=== PATIENT | female | born 1985 | race Caucasian/White ===

== ENCOUNTER 2022-12-26 09:29 | Outpatient (OUT) | payer OTHER, SELFPAY ==
[2022-12-26 09:42] LABS: Basophils Absolute Auto 0.1 10^3/uL (0.0-0.1); Basophils Percent Auto 0.8 % (0.2-2.0); Eosinophils Absolute Auto 0.3 10^3/uL (0.0-0.7); Eosinophils Percent Auto 3.1 % (0.9-7.0); Hematocrit 44.1 % (36.0-48.0); Hemoglobin 14.6 g/dL (12.0-16.0); Immature Granulocytes Abs Auto 0.05 10^3/uL (0.00-0.03); Immature Granulocytes Pct Auto 0.5 % (0.0-0.5); Lymphocytes Absolute Auto 1.8 10^3/uL (1.2-3.8); Lymphocytes Percent Auto 18.3 % (20.5-60.0); Mean Corpuscular HGB Conc 33.1 g/dL (29.9-35.2); Mean Corpuscular Volume 90.7 fL (81.0-99.0); Mean Platelet Volume 8.8 fL (9.5-13.5); Monocytes Absolute Auto 0.5 10^3/uL (0.3-0.8); Monocytes Percent Auto 4.9 % (1.7-12.0); Neutrophils Absolute Auto 7.3 10^3/uL (1.4-6.5); Neutrophils Percent Auto 72.4 % (43.0-75.0); Platelet Count 283 10^3/uL (150-450); Red Blood Count 4.86 10^6/uL (4.20-5.40); Red Cell Distribution Width 12.7 % (11.0-15.0); White Blood Count 10.1 10^3/uL (4.0-11.0)
[2022-12-26 09:45] LABS: HCG Qualitative Urine* NEGATIVE (NEGATIVE)
[2022-12-26 10:33] LABS: BUN Creatinine Ratio 6.5; Calcium 8.7 mg/dL (8.5-10.1); Carbon Dioxide 24.2 mmol/L (21.0-32.0); Chloride 108 mmol/L (98-107); Estimated GFR (African America >60 (>=60); Estimated GFR (Non-African Ame >60 (>=60); Glucose 120 mg/dL (74-106); Potassium 3.2 mmol/L (3.5-5.1); Sodium 142 mmol/L (136-145)
== END 2022-12-26 09:30 | disposition home or self-care (01) ==
LOC: LAB 09:29
PROVIDERS: Visit Provider Nurse Practitioner
DX: Z01.812 Encounter for preprocedural laboratory examination (principal); I47.1 Supraventricular tachycardia
CPT/HCPCS: 36415; 80048; 84703; 85025

== ENCOUNTER 2023-04-18 19:07 | Outpatient (REF) | payer OTHER, SELFPAY ==
[2023-04-24 09:12] LABS: Age Gdln ACOG Testing Note (.); HPV Aptima Negative (Negative); IGP, Aptima HPV, rfx 16/18,45 Note (.)
== END 2023-04-18 19:08 | disposition home or self-care (01) ==
LOC: LAB 19:07
PROVIDERS: Visit Provider Obstetrics & Gynecology
DX: Z01.419 Encounter for gynecological examination (general) (routine) without abnormal findings (principal)
CPT/HCPCS: 87624; G0145

== ENCOUNTER 2023-05-02 10:48 | Outpatient (OUT) | payer OTHER, SELFPAY ==
--- NOTE | 2023-05-02 10:52 | US_ITS ---
Patient Name: CONG CASTELLANO MR#: [id number] : 1985 Exam Date: 05/02/2023 Ordering Doctor: DR Tayo Cota . RADIOLOGY REPORT PROCEDURE: MM TOMOSYNTHESIS DIAGNOSTIC BI, 05/02/2023, 10:59 US BREAST RT LIMITED, 05/02/2023, 11:06 COMPARISON: MG MAMM SCREEN SHANTI W CAD, 08/21/2019. INDICATIONS: Right Breast Lump N63.14 Calculator Name NCI Breast Cancer Risk Assessment Tool 5 Year Breast Cancer Risk 1.10% Lifetime Breast Cancer Risk 11.80% Personal Breast Cancer No Personal Ovarian Cancer No Treatments None Family Cancers Grandmother-paternal with breast cancer at age 42; Mother with ovarian cancer at age ~38. LOCATION: [facility] BREAST COMPOSITION: Scattered areas fibroglandular density. FINDINGS: DIAGNOSTIC CATEGORY 4--SUSPICIOUS FOR MALIGNANCY. FINDING DOES NOT EXHIBIT CLASSIC FINDINGS OF BREAST CANCER: The breasts are stable in size and overall fibroglandular configuration.Scattered benign-appearing calcifications are present. RIGHT BREAST: Burton marker lower inner right mid breast indicates a palpable mass period no mammographic abnormality. Ultrasound demonstrates at the 4 o'clock position a 1.5 x 0.8 x 1.0 cm well-circumscribed oval heterogeneous hypoechogenic mass. This mass is indeterminate. LEFT BREAST: No significant suspicious finding. RECOMMENDATIONS: ULTRASOUND-GUIDED CORE BIOPSY: RIGHT BREAST 1.5 cm mass PLEASE NOTE: A NORMAL MAMMOGRAM DOES NOT EXCLUDE THE POSSIBILITY OF BREAST CANCER. A CLINICALLY SUSPICIOUS PALPABLE LUMP SHOULD BE BIOPSIED. Dictated by: Mauro Lund MD on 05/02/2023 at 11:43 Approved by: Mauro Lund MD on 05/02/2023 at 11:47
== END 2023-05-02 10:49 | disposition home or self-care (01) ==
LOC: MAMMO 10:48
PROVIDERS: Visit Provider Obstetrics & Gynecology
DX: N63.14 Unspecified lump in the right breast, lower inner quadrant (principal); Z80.3 Family history of malignant neoplasm of breast; Z80.41 Family history of malignant neoplasm of ovary
CPT/HCPCS: 76642; 77066; G0279

== ENCOUNTER 2023-05-17 12:20 | Day surgery (SDC) | payer OTHER, SELFPAY ==
--- NOTE | 2023-05-17 | MM_ITS ---
Patient Name: CONG CASTELLANO MR#: [id number] : 1985 Exam Date: 05/17/2023 Ordering Doctor: DR Tayo Cota . This report includes an Addendum and supersedes previous reports for this exam. RADIOLOGY REPORT PROCEDURE: MM POST BIOPSY RT COMPARISON: MM TOMOSYNTHESIS DIAGNOSTIC BI, 05/02/2023. MG MAMM SCREEN SHANTI W CAD, 08/21/2019. MG MAMM RT DIAG W CAD, 06/08/2017. MG MAMM RT DIAG W CAD, 12/07/2016. INDICATIONS: Abnormal ultrasound, post biopsy BREAST COMPOSITION: Scattered areas fibroglandular density. FINDINGS: BIOPSY MARKER: A metallic marker has been placed in the targeted location within the posterior lower inner quadrant of the right breast. BREAST FINDINGS: Expected post biopsy findings. RECOMMENDATIONS: Dictated by: Manuel Carpenter M.D. on 05/18/2023 at 13:40 Approved by: Manuel Carpenter M.D. on 05/18/2023 at 13:49 ADDENDUM: Final pathologic diagnosis: Mature adipose tissue. FINDINGS: DIAGNOSTIC CATEGORY 3--PROBABLY BENIGN FINDING. THE FOLLOWING FINDING(S) HAS A HIGH PROBABILITY OF A BENIGN ETIOLOGY: RECOMMENDATIONS: SHORT TERM FOLLOW-UP DIAGNOSTIC MAMMOGRAM RIGHT BREAST IN 6 MONTHS. Dictated by: Manuel Carpenter M.D. on 05/30/2023 at 15:51 Approved by: Manuel Carpenter M.D. on 05/30/2023 at 15:54
--- NOTE | 2023-05-17 12:24 | US_ITS ---
[address] [address] Patient Name: CONG CASTELLANO MRN: [id number] date: 1985 Sex: F Assigned Patient Location: US Current Patient Location: US Accession/Order Number: [id number] Exam Date: 05/17/2023 12:35 Report Date: 05/17/2023 13:59 At the request of: REID WATERMAN Procedure: US breast vac bx w/ clip RT EXAM: US breast vac bx w/ clip RT HISTORY: right breast mass COMPARISON: Ultrasound breast right 05/02/2023 TECHNIQUE: After obtaining informed consent, ultrasound-guided biopsy was performed in the usual sterile manner. The location of the biopsy was then marked as indicated below. FINDINGS: Specimen #, Location: 4 core samples; isoechoic right breast mass for clock position 1.4 x 0.9 x 1.0 cm in size. Biopsy Needle: 13 gauge vacuum core biopsy needle. Marker(s): A single metallic marker was placed in the appropriate targeted location. Medication: Buffered 1% Lidocaine with epinephrine administered locally. Complications: None. Pathology: Pending. US/US breast vac bx w/ clip RT IMPRESSION: 1. Uneventful ultrasound-guided breast biopsy. 2. Pathology results are pending. An addendum to this report will be provided after pathology results are available. Electronically authenticated by: LIZET HAYNES Date: 05/17/2023 13:59
[2023-05-17 12:35] VITALS: BP 135/84; PULSE 93; O2SAT 98
[2023-05-17] MEDS: LIDOCAINE HCL/EPINEPHRINE 10 ML, SODIUM BICARBONATE 1 MEQ INJ (13:25)
[2023-05-17] MEDS: LIDOCAINE HCL 10 ML, SODIUM BICARBONATE 1 MEQ INJ (13:25)
--- NOTE | 2023-05-17 15:11 | SUR.PREOP ---
05/04/23 Pt instructed on procedure ,date, and time. Pt made aware to hold ASA x 5 days prior to biopsy.
== END 2023-05-17 13:55 | disposition home or self-care (01) ==
LOC: US 12:20
PROVIDERS: Radiology Diagnostic Radiology; Visit Provider Obstetrics & Gynecology
DX: N63.14 Unspecified lump in the right breast, lower inner quadrant (principal)
CPT/HCPCS: 19083; 77065; 88305

== ENCOUNTER 2023-11-07 09:28 | Outpatient (OUT) | payer OTHER, SELFPAY ==
--- NOTE | 2023-11-07 09:39 | US_ITS ---
Patient Name: CONG CASTELLANO MR#: [id number] : 1985 Exam Date: 11/07/2023 Ordering Doctor: Akshat Ritchie RADIOLOGY REPORT PROCEDURE: MM TOMOSYNTHESIS DIAGNOSTIC RT, 11/07/2023, 09:39 US BREAST RT LIMITED, 11/07/2023, 10:04 COMPARISON: US BREAST RT LIMITED, 11/07/2023. US BREAST RT LIMITED, 05/02/2023. MM POST BIOPSY RT, 05/17/2023. INDICATIONS: History Of Breast Biopsy Z98.890, History Of Breast Mass Calculator Name NCI Breast Cancer Risk Assessment Tool 5 Year Breast Cancer Risk 1.10% Lifetime Breast Cancer Risk 11.80% Personal Breast Cancer No Personal Ovarian Cancer No Treatments None Family Cancers Grandmother-paternal with breast cancer at age 42; Mother with ovarian cancer at age ~38. LOCATION: [facility] BREAST COMPOSITION: There are scattered areas of fibroglandular density. FINDINGS: DIAGNOSTIC CATEGORY 2--BENIGN FINDING: Two triangle markers in the right breast indicate palpable abnormalities. No mammographic abnormality is observed. Ultrasound demonstrates at 4 o'clock position decrease in size the previously biopsied lesion now measuring 8.5 x 6.4 x 6.1 mm. Additionally identified at the 4 o'clock position is a micro clip marker with collagen plug. No linear abnormality to correspond to the patient's palpable abnormality observed by ultrasound. Further evaluation should be based on clinical exam. RECOMMENDATIONS: ROUTINE MAMMOGRAM AND CLINICAL EVALUATION IN 12 MONTHS. PLEASE NOTE: A NORMAL MAMMOGRAM DOES NOT EXCLUDE THE POSSIBILITY OF BREAST CANCER. A CLINICALLY SUSPICIOUS PALPABLE LUMP SHOULD BE BIOPSIED. Dictated by: Mauro Lund MD on 11/07/2023 at 10:23 Approved by: Mauro Lund MD on 11/07/2023 at 10:27
== END 2023-11-07 09:29 | disposition home or self-care (01) ==
LOC: MAMMO 09:31
PROVIDERS: Visit Provider Surgery
DX: R92.8 Other abnormal and inconclusive findings on diagnostic imaging of breast (principal); Z98.890 Other specified postprocedural states; Z80.3 Family history of malignant neoplasm of breast; Z80.41 Family history of malignant neoplasm of ovary
CPT/HCPCS: 76642; 77065; G0279

== ENCOUNTER 2024-08-19 15:45 | Outpatient (OUT) | payer OTHER, SELFPAY ==
[2024-08-22 15:09] LABS: Age Gdln ACOG Testing Note (.); HPV Aptima Negative (Negative); IGP, Aptima HPV, rfx 16/18,45 Note (.)
== END 2024-08-19 15:46 | disposition home or self-care (01) ==
LOC: LAB 15:48
PROVIDERS: Visit Provider Physician Assistant
DX: Z01.419 Encounter for gynecological examination (general) (routine) without abnormal findings (principal)
CPT/HCPCS: 87624; 88175

== ENCOUNTER 2024-12-17 18:15 | Outpatient (OUT) | payer OTHER, SELFPAY ==
--- OUTSIDE RECORDS SUMMARY | 2024-12-16 09:40 | XMS_ITS | Encounter Summary ---
Author Organization [facility] Address [address] [place] [address] Care Team Providers Care Email Designer Name Role Phone Gil Ragsdale MD Primary Care Provider [phone] Reason for Referral * Imaging (Routine) - Pending Review Specialty Diagnoses / Procedures Referred By Ross t Referred To Contact Cardiology Diagnoses Leg swelling Pain in both lower extremities Procedures Vascular US lower extremity venous insufficiency bilateral Faye Boland CNP [address] [place] [address] Phone: tel: fax: Referral ID Status Reason Start Date Expiration Date Visits Requested Visits Authorized [id number] Pending Review Perform Procedure 12/16/2024 12/16/2025 1 1 Reason for Visit * Reason Comments Atrial Flutter Edema Encounter Details Date Type Department Care Team (Late st Contact Info) Description 12/16/2024 9:40 AM EDT Office Visit [facility] [address] [place] [address] Faye Boland CNP [address] [place] [address] Leg swelling (Primary Dx); Pain in both lower extremities; Typical atrial flutter (CMS/HCC); S/P ablation of atrial flutter; SVT (supraventricular tachycardia) Social History Tobacco Use Types Packs/Day Years Used Date Smoking Tobacco: Every Day Cigarettes Smokeless Tobacco: Never Tobacco Cessation:Ready to Q uit: Not Asked; Counseling Given: Not Answered Comments:Vape 5 times per day Alcohol Use Standard Drinks/Week Comments Not Currently 0 (1 standard drink = 0.6 oz pur e alcohol) [place] Safety & Environment Answer Date Rec orded Fear of Current or Ex-Partner Not on file Emotionally Abused Not on file 08/09/2023 Physically Abused Not on file 08/09/2023 Sexually Abused Not on file 08/09/2023 Physically or Sexually Abused Not on file Comments No Sex and Gender Information Value Date Recorded Sex Assigned at Not on file Legal Sex Female 10:14 PM EDT Gender Identity Not on file Sexual Orientation Not on file documented as of this encounter Last Filed Vital Signs Vital Sign Reading Time Taken Comments Blood Pressure 126/84 12/16/2024 9:46 AM EDT Pulse 95 12/16/2024 9:46 AM EDT Temperature - - Respiratory Rate - - Oxygen Saturation 97% 12/16/2024 9:46 AM EDT Inhaled Oxygen Concentration - - Weight 93.4 kg (206 lb) 12/16/2024 9:46 AM EDT Height 157.5 cm (5' 2 ) 12/16/2024 9:46 AM EDT Body Mass Index 37.68 12/16/2024 9:46 AM EDT documented in this encounter Progress Notes * Faye Boland, URBANO - 12/16/2024 9:40 AM EDT Images from the original note were not included. Cardiovascular Medicine [facility] SUBJECTIVE Chief Complaint Patient presents with Atrial Flutter Edema Brianna Smas is a 39 y.o. female here for follow-up. PMHx: SVT, a.flutter s/p ablation, LOOP recorder that has reached EOL, HTN HPI 12/16/2024 Patient is here today for a 6 month follow up. Patient states she has been having a lot of swelling in her legs over the last 5 to 6 days. Patient states she is 5 pounds heavier then when she was ather PCP 2 weeks ago. Patient states she has some MAST. Patient denies SOB, palpitations. Patient would like to discuss if she needs a new loop or if it should be removed. Her leg swelling has been worse in her left leg than right. She noticed some discomfort behind her left calf. She notes her mother has hx of Factor V - she has half of the factor V gene. Denies c/o CP, dyspnea, orthopnea, PND, dizziness/LH, palpitations, syncope. Last HPI per Dr. Osuna: 05/27/24 FATHER recently , she was having high bp and palpitions through that. No dizziness, velma swellingg Used pocket pill a couple. LOOP is now non functional. No tachy noted. 04/20/23: She is here for follow up she has been feeling well with no complaints of chest pain, shortness breath, MAST, palpitations loop data review shows she has had 1 episode of svt 04/16/2023 for about 19 seconds likely atrial tachycardia versus AVNRT, although she has not been noted to have any retrograde accessory conduction on EP study so likely atrial tachycardia discussed with patient for now which continue to monitor 10/2022 HPI: she is here for follow-up for loop data review and for palpitations reviewing her loop she does have some episodes of what look like atrial flutter despite having pastatrial flutter ablation. In the past her atrial flutter ablation CTI block was not able to be confirmed. 08/2022 per spana higgins HPI: Brianna Sams is a 39 y.o. year old with past medical history of palpitations, SVT s/p loop implant 12/[address] Osuna. She is here for follow-up regarding right event alert below from 07/09/22. she states she has not had any increase in symptoms but occasionally has palpitations which she hasbeen tolerating. she does not recall anything from that day but event calls for VT but after further review of strips it is difficult to delineate whether this was a ventricular rhythm normal. Event strip Appears to have a lot of artifact/noise and what may look like VT I do not believe his VT. The rhythm is a narrow complex which means more likely an SVT vs noise. recently admitted She states she has been feeling well and I offered her potential EP study after reviewing past events. She has had several appropriate atrial tachycardia events which she states is controlled with her medication. She has occasional palpitations but no other associated symptoms. She does not want topursue any intervention at this time. She denies chest pain, syncope, lightheadedness, dizziness, MAST Red event alert 07/09/2211/[address] Osuna: Ms Sams is a 35yr old lady with prior ablation by Dr. Fink in 2009 after failing medications for palpitations. She was brought to the EP lab and on Isuprel atrial flutter with 200ms CL was induced that self terminated. No other tachy was induced and this was emirically ablated. Since then pt states she has not experienced any syncope but still had palpitations. She had a loop implanted and due to frequent infectionw as taken out by Dr peña at [place]. Previously, -Episode of chest pain about 2 months ago while at work, lasted 30 seconds, has trouble describing pain but almost like an intense ache/throbbing/sharp pain, took her breath away, left sided, no episodes since then - wasn't sure what her BP or HR were at that time as she was at work on the [employer] (works at [employer]) -Feels flutters here and there - notices them more when she is sitting still or resting - not bothersome, not limiting - no accompanied sx's - lasts seconds -Has LE edema that is an ongoing issue -Denies any current CP, dyspnea, MAST, orthopnea, PND, dizziness/LH, syncope. Event monitor Jun 2020: reveals episode of long RP trachycardia ta 3 am. She wakes up at 4am and solong RP at 4; 30am is likely sinus tachycardia. Patient Active Problem List Diagnosis Intermittent palpitations SVT (supraventricular tachycardia) Migraine without aura and without status migrainosus, not intractable Hypertension Anemia Elevated blood-pressure reading without diagnosis of hypertension Gastroesophageal reflux disease Migraine Mood swings Syncope and collapse Atrial flutter (CMS/HCC) Anxiety Cigarette nicotine dependence without complication Current moderate episode of major depressive disorder without prior episode (CMS/HCC) Neck muscle strain Past Medical History: Diagnosis Date Arrhythmia Atrial fibrillation (CMS/HCC) Hypertension SVT (supraventricular tachycardia) Family History Problem Relation Name Age of Onset COPD Father Social History Tobacco Use Smoking status: Every Day Types: Cigarettes Smokeless tobacco: Never Tobacco comments: Vape 5 times per day Substance Use Topics Alcohol use: Not Currently Drug use: Yes Types: Marijuana Comment: topical smokes occasional joint Allergies Allergen Reactions Diltiazem Hives Diltiazem Hcl Hives OBJECTIVE Visit Vitals BP 126/84 (BP Location: Right arm, Patient Position: Sitting) Pulse 95 Ht 1.575 m (5' 2 ) Wt 93.4 kg (206 lb) SpO2 97% BMI 37.68 kg/m² OB Status Hysterectomy Smoking Status Every Day BSA 2.02 m² Medications: Current Outpatient Medications: aspirin 81 mg EC tablet, Take 81 mg by mouth in the morning., Disp: , Rfl: DULoxetine (Cymbalta) [address] capsule, duloxetine 20 mg capsule,delayed release, Disp: , Rfl: metoprolol tartrate (Lopressor) 25 mg tablet, TAKE 1 TABLET BY MOUTH IF NEEDED FOR HEART RATE GREATER THAN 100 BPM, Disp: 90 tablet, Rfl: 0 omeprazole (PriLOSEC) [address] capsule, Take 40 mg by mouth before breakfast. Do not crush or chew., Disp: , Rfl: tiZANidine (Zanaflex) 4 mg tablet, tizanidine 4 mg tablet, Disp: , Rfl: topiramate (Topamax) 100 mg tablet, topiramate 100 mg tablet TAKE 1 AND 1/2 TABLETS BY MOUTH TWICE DAILY, Disp: , Rfl: furosemide (Lasix) 20 mg tablet, Take 1 tablet (20 mg) by mouth if needed (take 1 tablet daily if needed for leg swelling)., Disp: 30 tablet, Rfl: 11 Physical Exam Vitals reviewed. Constitutional: Appearance: Normal appearance. She is normal weight. HENT: Head: Normocephalic and atraumatic. Right Ear: External ear normal. Left Ear: External ear normal. Eyes: Extraocular Movements: Extraocular movements intact. Conjunctiva/sclera: Conjunctivae normal. Pupils: Pupils are equal, round, and reactive to light. Neck: Vascular: No carotid bruit. Cardiovascular: Rate and Rhythm: Normal rate and regular rhythm. Pulses: Normal pulses. Heart sounds: Normal heart sounds. Pulmonary: Effort: Pulmonary effort is normal. Breath sounds: Normal breath sounds. Abdominal: General: Bowel sounds are normal. Palpations: Abdomen is soft. Musculoskeletal: Cervical back: Neck supple. Right lower leg: No edema. Left lower leg: Edema (trace, nonpitting) present. Skin: General: Skin is warm and dry. Neurological: General: No focal deficit present. Mental Status: She is alert and oriented to person, place, and time. Psychiatric: Mood and Affect: Mood normal. Behavior: Behavior normal. Thought Content: Thought content normal. Judgment: Judgment normal. Labs: No results found for: EXTCMP , BMPR1A , CBCDIF , BNP , LASAP , RED No visits with results within 6 Month(s) from this visit. Latest known visit with results is: Ancillary Procedure on 11/05/2023 Component Date Value BSA 12/05/2023 1.95 No results found for: CHOL , TRIG , HDL , LDLDIRECT Testing/Procedures: ECHO 05/2021 Stress test: 05/2021 Electrophysiology: 01/01/23 EP study AHms 66 HVms 65 VERPms 600/250, VA conduction - @600ms, + @800ms AV Wenkebach ms 350 AH jump ms NA AVNERP ms 600/270 AERP ms 600/260 SPECIMEN REMOVED: None IMPRESSION: 1. EP study with and no inducible VT 2. No inducible tachycardia 3. Reablation of CTI to establish bidirectional block. 02/2010 flutter ablation ASSESSMENT/PLAN: Diagnoses and all orders for this visit: Leg swelling - furosemide (Lasix) 20 mg tablet; Take 1 tablet (20 mg) by mouth if needed (take 1 tablet daily ifneeded for leg swelling). - Vascular US lower extremity venous insufficiency bilateral; Future Pain in both lower extremities - Vascular US lower extremity venous insufficiency bilateral; Future Typical atrial flutter (CMS/HCC) S/P ablation of atrial flutter SVT (supraventricular tachycardia) SVT Atrial flutter s/p ablation LOOP monitor -s/p confrimed flutter ablation 01/01/23 / EP study with no inducible tachycardia -loop shows 1 short episodes of tachycardia 04/16/23 - likely atrial tachycardia No further tachycardia on LOOP. No data now since it is non functional. -She currently denies any worsening sx's. -Will consider loop replacement if she notices sx's. Will also discuss with Dr. Osuna if any indication for replacement at this time. -Continue PRN metoprolol BLE edema -L>R edema, she does note some discomfort behind her left calf -Trace LLE edema on exam today. No redness on exam. -Will order a Venous duplex reflux study to assess for venous insufficency and also rule out DVT - if normal, can proceed with an ECHO -PRN lasix ordered for days that swelling worsens -Recommend elevation when possible and limiting sodium intake Follow up in about 6 months (around 06/18/2025). Faye Boland CNP [facility] Cardiovascular Medicine * Mari Buenrostro MA - 12/16/2024 9:40 AM EDT Patient is here today for a 6 month follow up. Patient states she has been having a lot of swellingin her legs over the last 5 to 6 days. Patient states she is 5 pounds heavier then when she was at her PCP 2 weeks ago. Patient states she has some MAST. Patient denies SOB, palpitations. Patient would like to discuss if she needs a new loop or if it should be removed. Review of Systems Constitutional: Positive for weight gain. Cardiovascular: Positive for dyspnea on exertion and leg swelling. documented in this encounter Plan of Treatment Scheduled Orders Name Type Priority Associated Diagnoses Order Schedule Vascular US lower extremity venous insufficiency bilateral Vascular Ultrasound Routine Leg swelling Pain in both lower extremities Expected: 12/16/2024 (Approximate), Expires: 12/16/2026 documented as of this encounter Visit Diagnoses Diagnosis Leg swelling- Primary Swelling of limb Pain in both lower extremities Typical atrial flutter (CMS/HCC) S/P ablation of atrial flutter Other postprocedural status SVT (supraventricular tachycardia) Other specified cardiac dysrhythmias documented in this encounter Care Teams Email Designer Relationship Specialty Start Date End Date Gil Ragsdale MD DIV OF PM&R PCP - General 04/04/22 documented as of this encounter
--- OUTSIDE RECORDS SUMMARY | 2024-12-17 18:19 | XMS_ITS | Encounter Summary ---
Author Organization [facility] Address [address] [place] [address] Care Team Providers Care Armhole Raiser Lockstitch Name Role Phone Gil Ragsdale MD Primary Care Provider [phone] Encounter Details Date Type Department Care Team (Late st Contact Info) Description 05/02/2023 Clinisync Result Encounter [facility] Department Unsolicited Tayo Cota DO [address] [place] [address] Social History Tobacco Use Types Packs/Day Years Used Date Smoking Tobacco: Every Day Cigarettes Alcohol Use Standard Drinks/Week Comments Never 0 (1 standard drink = 0.6 oz pur e alcohol) caffeine: 3-4 cups per day Comments Unknown Sex and Gender Information Value Date Recorded Sex Assigned at Female 11/13/2022 2:32 PM EDT Legal Sex Female 7:18 PM EDT Gender Identity Female 11/13/2022 2:32 PM EDT Sexual Orientation Asexual 11/13/2022 2: 32 PM EDT COVID-19 Exposure Response Date Recorded In the last 10 days, have yo u been in contact with someone who was confirmed or suspected to have Coronavirus/COVID-19? No / Unsure 04/17/2023 4:19 PM EDT documented as of this encounter Plan of Treatment Upcoming Encounters Date Type Department Care Team (Late st Contact Info) Description 08/25/2025 10:00 AM EDT Office Visit [facility] [address] [place] [id number] Liyah Galindo PA [address] [place] [address] documented as of this encounter Procedures Procedure Name Priority Date/Time Associated Diagnosis Comments MM TOMOSYNTHESIS DIAGNOSTIC BI 05/02/2023 11:47 AM EST documented in this encounter Results * MM TOMOSYNTHESIS DIAGNOSTIC BI (05/02/2023 11:47 AM EST) Anatomical Region Laterality Modality Other 05/02/2023 11:4 7 AM EST Narrative 05/02/2023 11:47 AM EST The [address] [address] Mammography Report Signed Patient: CONG CASTELLANO MR#: [id number] : 1985 Acct:[id number] Age/Sex: 38 / F ADM Date: 05/02/23 Loc: MAMMO Attending Dr: Tayo Cota D.O. Ordering Physician: Tayo Cota D.O. Results: Date of Service: 05/02/23 Follow Up: Procedure(s): MM tomosynthesis diagnostic BI Accession Number(s): [id number] cc: Tayo Cota D.O.; Physician,Non-Staff Mike Patient Name: CONG CASTELLANO MR#: [id number] : 1985 Exam Date: 05/02/2023 Ordering Doctor: DR Tayo Cota . RADIOLOGY REPORT PROCEDURE: MM TOMOSYNTHESIS DIAGNOSTIC BI, 05/02/2023, 10:59 US BREAST RT LIMITED, 05/02/2023, 11:06 COMPARISON: MG MAMM SCREEN SHANTI W CAD, 08/21/2019. INDICATIONS: Right Breast Lump N63.14 Calculator Name NCI Breast Cancer Risk Assessment Tool 5 Year Breast Cancer Risk 1.10% Lifetime Breast Cancer Risk 11.80% Personal Breast Cancer No Personal Ovarian Cancer No Treatments None Family Cancers Grandmother-paternal with breast cancer at age 42; Mother with ovarian cancer at age 38. LOCATION: [facility] BREAST COMPOSITION: Scattered areas fibroglandular density. FINDINGS: DIAGNOSTIC CATEGORY 4--SUSPICIOUS FOR MALIGNANCY. FINDING DOES NOT EXHIBIT CLASSIC FINDINGS OF BREAST CANCER: The breasts are stable in size and overall fibroglandular configuration.Scattered benign-appearing calcifications are present. RIGHT BREAST: [place] marker lower inner right mid breast indicates a palpable mass period no mammographic abnormality. Ultrasound demonstrates at the 4 o'clock position a 1.5 x 0.8 x 1.0 cm well-circumscribed oval heterogeneous hypoechogenic mass. This mass is indeterminate. LEFT BREAST: No significant suspicious finding. RECOMMENDATIONS: ULTRASOUND-GUIDED CORE BIOPSY: RIGHT BREAST 1.5 cm mass PLEASE NOTE: A NORMAL MAMMOGRAM DOES NOT EXCLUDE THE POSSIBILITY OF BREAST CANCER. A CLINICALLY SUSPICIOUS PALPABLE LUMP SHOULD BE BIOPSIED. Dictated by: Mauro Lund MD on 05/02/2023 at 11:43 Approved by: Mauro Lund MD on 05/02/2023 at 11:47 Dictated By: Mauro Lund M.D. Signed By: 05/02/23 1148 DD/ 1147 TD/TT: Conference Interpreter: Procedure Note Radiology, Radiologist, MD - 05/02/2023 [place] [address] Mammography Report Signed Patient: CONG CASTELLANO AMR#: [id number] : 1985Acct:[id number] Age/Sex: 38 / FADM Date: 05/02/23 Loc: MAMMO Attending Dr: Tayo Cota D.O. Ordering Physician: Tayo Cota D.O.Results: Date of Service: 05/02/23Follow Up: Procedure(s): MM tomosynthesis diagnostic BI Accession Number(s): [id number] cc: Tayo Cota D.O.; Physician,Non-Staff Mike Patient Name: CONG CASTELLANO MR#: [id number] : 1985 Exam Date: 05/02/2023 Ordering Doctor: DR Tayo Cota . RADIOLOGY REPORT PROCEDURE: MM TOMOSYNTHESIS DIAGNOSTIC BI, 05/02/2023, 10:59 US BREAST RT LIMITED, 05/02/2023, 11:06 COMPARISON: MG MAMM SCREEN SHANTI W CAD, 08/21/2019. INDICATIONS: Right Breast Lump N63.14 Calculator Name NCI Breast Cancer Risk Assessment Tool 5 Year Breast Cancer Risk 1.10% Lifetime Breast Cancer Risk 11.80% Personal Breast Cancer No Personal Ovarian Cancer No Treatments None Family Cancers Grandmother-paternal with breast cancer at age 42;Mother with ovarian cancer at age 38. LOCATION: [facility] BREAST COMPOSITION: Scattered areas fibroglandular density. FINDINGS: DIAGNOSTIC CATEGORY 4--SUSPICIOUS FOR MALIGNANCY. FINDING DOES NOT EXHIBIT CLASSIC FINDINGS OF BREAST CANCER: The breasts are stable in size and overall fibroglandular configuration.Scattered benign-appearing calcifications are present. RIGHT BREAST: [place] marker lower inner right mid breast indicates a palpable mass period no mammographic abnormality. Ultrasound demonstratesat the 4 o'clock position a 1.5 x 0.8 x 1.0 cm well-circumscribed oval heterogeneous hypoechogenic mass. This mass is indeterminate. LEFT BREAST: No significant suspicious finding. RECOMMENDATIONS: ULTRASOUND-GUIDED CORE BIOPSY: RIGHT BREAST 1.5 cm mass PLEASE NOTE: A NORMAL MAMMOGRAM DOES NOT EXCLUDE THE POSSIBILITY OFBREAST CANCER. A CLINICALLY SUSPICIOUS PALPABLE LUMP SHOULD BE BIOPSIED. Dictated by: Mauro Lund MD on 05/02/2023 at 11:43 Approved by: Mauro Lund MD on 05/02/2023 at 11:47 Dictated By: Mauro Lund M.D. Signed By:05/02/23 1148 DD/ 1147 TD/TT: Conference Interpreter: us Tayo Smitho DO [facility] Final Result documented in this encounter Visit Diagnoses Not on filedocumented in this encounter Care Teams Armhole Raiser Lockstitch Relationship Specialty Start Date End Date Gil Ragsdale MD PCP - General Family Medicine 11/20/22 documented as of this encounter
--- OUTSIDE RECORDS SUMMARY | 2024-12-17 18:20 | XMS_ITS | Encounter Summary ---
Author Organization [facility] Address [address] [place] [address] Care Team Providers Care Publicist Name Role Phone Gil Ragsdale MD Primary Care Provider [phone] Reason for Visit * Reason Comments Med Refill Encounter Details Date Type Department Care Team (Late st Contact Info) Description 04/04/2022 Refill [facility] [address] [place] [address] Dacia Rodriguez, FLY FINISHER [address] [place] [address] Intermittent palpitations Social History Tobacco Use Types Packs/Day Years Used Date Smoking Tobacco: Never Assessed Comments Unknown Sex and Gender Information Value Date Recorded Sex Assigned at Not on file Legal Sex Female 10:14 PM EDT Gender Identity Not on file Sexual Orientation Not on file COVID-19 Exposure Response Date Recorded In the last 10 days, have yo u been in contact with someone who was confirmed or suspected to have Coronavirus/COVID-19? No / Unsure 04/04/2022 3:32 PM EDT documented as of this encounter Miscellaneous Notes * Telephone Encounter - Shanna Isaac MA - 04/04/2022 5:07 PM EDT Approving, but needs appt for additional refills. documented in this encounter Plan of Treatment Not on file documented as of this encounter Visit Diagnoses Diagnosis Intermittent palpitations documented in this encounter Care Teams Publicist Relationship Specialty Start Date End Date Gil Ragsdale MD DIV OF PM&R PCP - General 04/04/22 documented as of this encounter
--- OUTSIDE RECORDS SUMMARY | 2024-12-17 18:20 | XMS_ITS | Encounter Summary ---
Author Organization [facility] Address [address] [place] [address] Care Team Providers Care Technical Architect Name Role Phone Avis Ragsdale MD Primary Care Provider [phone] Encounter Details Date Type Department Care Team (Late st Contact Info) Description 11/07/2023 Clinisync Result Encounter [facility] External Department Unsolicited Akshat Ritchie DO Social History Tobacco Use Types Packs/Day Years Used Date Smoking Tobacco: Every Day Cigarettes 0.5 15 Alcohol Use Standard Drinks/Week Comments Not Currently 0 (1 standard drink = 0.6 oz pur e alcohol) caffeine: 3-4 cups per day Comments Unknown Sex and Gender Information Value Date Recorded Sex Assigned at Female 11/13/2022 2:32 PM EDT Legal Sex Female 7:18 PM EDT Gender Identity Female 11/13/2022 2:32 PM EDT Sexual Orientation Asexual 11/13/2022 2: 32 PM EDT documented as of this encounter Plan of Treatment Upcoming Encounters Date Type Department Care Team (Late st Contact Info) Description 08/25/2025 10:00 AM EDT Office Visit [facility] [address] [facility] [place] [phone] Liyah Galindo PA [address] [facility] [address] [place], [place] [id number] documented as of this encounter Procedures Procedure Name Priority Date/Time Associated Diagnosis Comments MM TOMOSYNTHESIS DIAGNOSTIC RT 11/07/2023 10:27 AM EDT documented in this encounter Results * MM TOMOSYNTHESIS DIAGNOSTIC RT (11/07/2023 10:27 AM EDT) Anatomical Region Laterality Modality Other 11/07/2023 10:2 7 AM EDT Narrative 11/07/2023 10:28 [place] [address] Mammography Report Signed Patient: CONG CASTELLANO MR#: [id number] : 1985 Acct:[id number] Age/Sex: 38 / F ADM Date: 11/07/23 Loc: MAMMO Attending Dr: Akshat Ritchie D.O. Ordering Physician: Akshat Ritchie D.O. Results: Date of Service: 11/07/23 Follow Up: Procedure(s): MM tomosynthesis diagnostic RT Accession Number(s): [id number] cc: Akshat Ritchie D.O.; AVIS RAGSDALE Patient Name: CONG CASTELLANO MR#: [id number] : 1985 Exam Date: 11/07/2023 Ordering Doctor: Akshat Ritchie RADIOLOGY REPORT PROCEDURE: MM TOMOSYNTHESIS DIAGNOSTIC RT, 11/07/2023, 09:39 US BREAST RT LIMITED, 11/07/2023, 10:04 COMPARISON: US BREAST RT LIMITED, 11/07/2023. US BREAST RT LIMITED, 05/02/2023. MM POST BIOPSY RT, 05/17/2023. INDICATIONS: History Of Breast Biopsy Z98.890, History Of Breast Mass Calculator Name NCI Breast Cancer Risk Assessment Tool 5 Year Breast Cancer Risk 1.10% Lifetime Breast Cancer Risk 11.80% Personal Breast Cancer No Personal Ovarian Cancer No Treatments None Family Cancers Grandmother-paternal with breast cancer at age 42; Mother with ovarian cancer at age 38. LOCATION: [facility] BREAST COMPOSITION: There are scattered areas of fibroglandular density. FINDINGS: DIAGNOSTIC CATEGORY 2--BENIGN FINDING: Two triangle markers in the right breast indicate palpable abnormalities. No mammographic abnormality is observed. Ultrasound demonstrates at 4 o'clock position decrease in size the previously biopsied lesion now measuring 8.5 x 6.4 x 6.1 mm. Additionally identified at the 4 o'clock position is a micro clip marker with collagen plug. No linear abnormality to correspond to the patient's palpable abnormality observed by ultrasound. Further evaluation should be based on clinical exam. RECOMMENDATIONS: ROUTINE MAMMOGRAM AND CLINICAL EVALUATION IN 12 MONTHS. PLEASE NOTE: A NORMAL MAMMOGRAM DOES NOT EXCLUDE THE POSSIBILITY OF BREAST CANCER. A CLINICALLY SUSPICIOUS PALPABLE LUMP SHOULD BE BIOPSIED. Dictated by: Mauro Lund MD on 11/07/2023 at 10:23 Approved by: Mauro Lund MD on 11/07/2023 at 10:27 Dictated By: Mauro Lund M.D. Signed By: 11/07/23 1028 DD/ 1027 TD/TT: Respiratory Care Assistant: Procedure Note Radiology, Radiologist, - 11/07/2023 [place] [address] Mammography Report Signed Patient: CONG CASTELLANO AMR#: [id number] : 1985Acct:[id number] Age/Sex: 38 / FADM Date: 11/07/23 Loc: MAMMO Attending Dr: Akshat Ritchie D.O. Ordering Physician: Akshat Ritchie D.O.Results: Date of Service: 11/07/23Follow Up: Procedure(s): MM tomosynthesis diagnostic RT Accession Number(s): [id number] cc: Akshat Ritchie D.O.; AVIS RAGSDALE Patient Name: CONG CASTELLANO MR#: [id number] : 1985 Exam Date: 11/07/2023 Ordering Doctor: Akshat Ritchie RADIOLOGY REPORT PROCEDURE: MM TOMOSYNTHESIS DIAGNOSTIC RT, 11/07/2023, 09:39 US BREAST RT LIMITED, 11/07/2023, 10:04 COMPARISON: US BREAST RT LIMITED, 11/07/2023. US BREAST RT LIMITED, 05/02/2023. MM POST BIOPSY RT, 05/17/2023. INDICATIONS: History Of Breast Biopsy Z98.890, History Of Breast Mass Calculator Name NCI Breast Cancer Risk Assessment Tool 5 Year Breast Cancer Risk 1.10% Lifetime Breast Cancer Risk 11.80% Personal Breast Cancer No Personal Ovarian Cancer No Treatments None Family Cancers Grandmother-paternal with breast cancer at age 42;Mother with ovarian cancer at age 38. LOCATION: [facility] BREAST COMPOSITION: There are scattered areas of fibroglandulardensity. FINDINGS: DIAGNOSTIC CATEGORY 2--BENIGN FINDING: Two triangle markers in the right breast indicate palpable abnormalities.No mammographic abnormality is observed. Ultrasound demonstrates at 4 o'clock position decrease in size thepreviously biopsied lesion now measuring 8.5 x 6.4 x 6.1 mm. Additionally identifiedat the 4 o'clock position is a micro clip marker with collagen plug. No linear abnormality to correspond to the patient's palpable abnormality observed by ultrasound. Further evaluation should be based on clinicalexam. RECOMMENDATIONS: ROUTINE MAMMOGRAM AND CLINICAL EVALUATION IN 12 MONTHS. PLEASE NOTE: A NORMAL MAMMOGRAM DOES NOT EXCLUDE THE POSSIBILITY OFBREAST CANCER. A CLINICALLY SUSPICIOUS PALPABLE LUMP SHOULD BE BIOPSIED. Dictated by: Mauro Lund MD on 11/07/2023 at 10:23 Approved by: Mauro Lund MD on 11/07/2023 at 10:27 Dictated By: Mauro Lund M.D. Signed By:11/07/23 1028 DD/ 1027 TD/TT: Respiratory Care Assistant: us Akshat Ritchie DO [facility] Final Result documented in this encounter Visit Diagnoses Not on filedocumented in this encounter Care Teams Technical Architect Relationship Specialty Start Date End Date Avis Ragsdale MD PCP - General Family Medicine 11/20/22 documented as of this encounter
--- OUTSIDE RECORDS SUMMARY | 2024-12-17 18:20 | XMS_ITS | Encounter Summary ---
Author Organization [facility] Address [address] [place] [address] Care Team Providers Care Vehicle Upholsterer Name Role Phone Gil Ragsdale MD Primary Care Provider [phone] Reason for Referral * Imaging (Routine) - Pending Review Specialty Diagnoses / Procedures Referred By Contac t Referred To Contact Cardiology Diagnoses Leg swelling Pain in both lower extremities Procedures Vasc Us Lower Extremity Venous Insufficiency Bilateral (Reflux) Faye Boland CNP [address] [place] [address] Phone: tel: fax: Referral ID Status Reason Start Date Expiration Date Visits Requested Visits Authorized [id number] Pending Review Perform Procedure 12/17/2024 12/17/2025 1 1 * Imaging (Routine) - Pending Review Specialty Diagnoses / Procedures Referred By Contac t Referred To Contact Cardiology Diagnoses Leg swelling Pain in both lower extremities Procedures Vascular US lower extremity venous duplex bilateral Faye Boland CNP [address] [place] [address] Phone: tel: fax: Referral ID Status Reason Start Date Expiration Date Visits Requested Visits Authorized [id number] Pending Review Perform Procedure 12/17/2024 12/17/2025 1 1 Encounter Details Date Type Department Care Team (Late st Contact Info) Description 12/17/2024 Orders Only [facility] [address] [place] [address] Shanna Isaac MA Leg swelling (Primary Dx); Pain in both lower extremities Social History Tobacco Use Types Packs/Day Years Used Date Smoking Tobacco: Every Day Cigarettes Smokeless Tobacco: Never Comments:Vape 5 times per da y Alcohol Use Standard Drinks/Week Comments Not Currently [...] on file documented as of this encounter Plan of Treatment Scheduled Orders Name Type Priority Associated Diagnoses Order Schedule Vascular US lower extremity venous duplex bilateral Vascular Ultrasound Routine Leg swelling Pain in both lower extremities Expected: 12/17/2024 (Approximate), Expires: 12/17/2026 Vasc Us Lower Extremity Venous Insufficiency Bilateral (Reflux) Vascular Ultrasound Routine Leg swelling Pain in both lower extremities Expected: 12/17/2024 (Approximate), Expires: 12/17/2026 documented as of this encounter Visit Diagnoses Diagnosis Leg swelling- Primary Swelling of limb Pain in both lower extremities documented in this encounter Care Teams Vehicle Upholsterer Relationship Specialty Start Date End Date Gil Ragsdale MD DIV OF PM&R PCP - General 04/04/22 documented as of this encounter
--- OUTSIDE RECORDS SUMMARY | 2024-12-17 18:20 | XMS_ITS | Clinical Summary ---
Author Organization [facility] Address [address] [place] [address] Care Team Providers Care Wall Taper Helper Name Role Phone Gil Ragsdale MD Primary Care Provider [phone] Allergies Active Allergy Reactions Criticality Noted Date Comments Diltiazem Hives High 06/05/2014 Medications DULoxetine (Cymbalta) [address] capsule Take 20 mg by mouth in the morning and 20 mg before bedtime. Do not crush or chew. . Active topiramate (Topamax) 100 MG tablet Take 150 mg by mouth in the morning and 150 mg before bedtime. Active metoprolol tartrate (Lopressor) 25 MG tablet Take 25 mg by mouth 1 (one) time. Active Rimegepant Sulfate (Nurtec) 75 MG tablet dispersible Nurtec Active omeprazole (PriLOSEC) [address] capsule Take 40 mg by mouth in the morning. Take before meals. Active busPIRone (Buspar) 15 MG tablet Active aspirin 81 MG EC tablet Take 81 mg by mouth in the morning. Active tiZANidine (Zanaflex) 4 MG tablet Take 4 mg by mouth as needed at bedtime Active Family History Medical History Relation Name Comments No Known Problems Brother Diabetes Father Olman Hypertension Father Olman Diabetes Mother Anne Hypertension Mother Anne No Known Problems Sister No Known Problems Son Relation Name Status Comments Brother 1 Father Olman Alive Mother Anne Alive Sister 1 Son Alive Social History Tobacco Use Types Packs/Day Years Used Date Smoking Tobacco: Every Day Cigarettes 0.5 15 Alcohol Use Standard Drinks/Week Comments Not Currently 0 (1 standard drink = 0.6 oz pur e alcohol) caffeine: 3-4 cups per day Comments No Sex and Gender Information Value Date Recorded Sex Assigned at Female 11/13/2022 2:32 PM EDT Legal Sex Female 7:18 PM EDT Gender Identity Female 11/13/2022 2:32 PM EDT Sexual Orientation Asexual 11/13/2022 2: 32 PM EDT Last Filed Vital Signs Vital Sign Reading Time Taken Comments Blood Pressure 106/82 08/19/2024 9:14 AM EST Pulse 87 10/22/2023 1:27 PM EDT Temperature 36.1 C (97 F) 10/22/2023 1:27 PM EDT Respiratory Rate 16 10/22/2023 1:27 PM EDT Oxygen Saturation 99% 10/22/2023 1:27 PM EDT Inhaled Oxygen Concentration - - Weight 93.8 kg (206 lb 12.8 oz) 08/19/2024 9:14 AM EST Height 160 cm (5' 3 ) 10/22/2023 1:27 PM EDT Body Mass Index 36.63 10/22/2023 1:27 PM EDT Plan of Treatment Upcoming Encounters Date Type Department Care Team (Late st Contact Info) Description 08/25/2025 10:00 AM EDT Office Visit [facility] OB [address] [facility] [place] [phone] Liyah Galindo PA [address] [facility] [place] [address] Health Maintenance Due Date Last Done Comments Mammogram 05/02/2024 05/02/2023 Influenza Vaccine (Season Ended) 2025 Cervical Cancer Screening 08/19/2029 HPV/Cotest 08/19/2029 Pap Smear 08/19/2029 08/19/2024, 04/18/2023 Procedures Procedure Name Priority Date/Time Associated Diagnosis Comments PAP SMEAR Routine 08/19/2024 12:00 AM EST MM TOMOSYNTHESIS DIAGNOSTIC BI 05/02/2023 11:47 AM EST from Last 3 Months or Most Recently Relevant to Health Maintenance Results * Pap Smear (08/19/2024 12:00 AM EST) Swab Cervical swab / Unknown Liyah [facility] CYTOLOGY ORDERABLES Final Re sult EXTERNAL LAB * MM TOMOSYNTHESIS DIAGNOSTIC BI (05/02/2023 11:47 AM EST) Anatomical Region Laterality Modality Other 05/02/2023 11:4 7 AM EST Narrative 05/02/2023 11:47 [place] [address] Mammography Report Signed Patient: CONG CASTELLANO MR#: [id number] : 1985 Acct:[id number] Age/Sex: 38 / F ADM Date: 05/02/23 Loc: MAMMO Attending Dr: Tayo Cota D.O. Ordering Physician: Tayo Cota D.O. Results: Date of Service: 05/02/23 Follow Up: Procedure(s): MM tomosynthesis diagnostic BI Accession Number(s): [id number] cc: Taoy Cota D.O.; Physician,Non-Staff Mike Patient Name: CONG CASTELLANO MR#: [id number] : 1985 Exam Date: 05/02/2023 Ordering Doctor: [...] ovarian cancer at age 36. LOCATION: [facility] BREAST COMPOSITION: Scattered areas fibroglandular density. FINDINGS: DIAGNOSTIC CATEGORY 4--SUSPICIOUS FOR MALIGNANCY. FINDING DOES NOT EXHIBIT CLASSIC FINDINGS OF BREAST CANCER: The breasts are stable in size and overall fibroglandular configuration.Scattered benign-appearing calcifications are present. RIGHT BREAST: Reed marker lower inner right mid breast indicates [...] Signed By: 05/02/23 1148 DD/ 1147 TD/TT: Fireworks Inspector: Procedure Note Radiology, Radiologist, - 05/02/2023 [place] [address] Mammography Report Signed Patient: CONG CASTELLANO AMR#: [id number] : 1985Acct:[id number] Age/Sex: 38 / FADM Date: 05/02/23 Loc: MAMMO Attending Dr: Tayo Cota D.O. Ordering Physician: Tayo Cota D.O.Results: Date of Service: 05/02/23Follow Up: Procedure(s): MM tomosynthesis diagnostic BI Accession Number(s): [id number] cc: Tayo Cota D.O.; Physician,Non-Staff Mike Patient Name: CONG CASTELLANO MR#: [id number] : 1985 Exam Date: 05/02/2023 Ordering Doctor: [...] ovarian cancer at age 36. LOCATION: [facility] BREAST COMPOSITION: Scattered areas fibroglandular density. FINDINGS: DIAGNOSTIC CATEGORY 4--SUSPICIOUS FOR MALIGNANCY. FINDING DOES NOT EXHIBIT CLASSIC FINDINGS OF BREAST CANCER: The breasts are stable in size and overall fibroglandular configuration.Scattered benign-appearing calcifications are present. RIGHT BREAST: Reed marker lower inner right mid breast indicates [...] M.D. Signed By:05/02/23 1148 DD/ 1147 TD/TT: Fireworks Inspector: [facility] Cipriano DO [facility] Final Result from Last 3 Months or Most Recently Relevant to Health Maintenance Insurance [facility] Care Teams Wall Taper Helper Relationship Specialty Start Date End Date Gil Ragsdale MD PCP - General Family Medicine 11/20/22
--- OUTSIDE RECORDS SUMMARY | 2024-12-17 18:20 | XMS_ITS | Encounter Summary ---
Author Organization [facility] Address [address] [place] [address] Care Team Providers Care Draw Frame Tender Name Role Phone Gil Ragsdale MD Primary Care Provider Encounter Details Date Type Department Care Team (Late st Contact Info) Description 05/17/2023 Clinisync Result Encounter [facility] External Department Unsolicited Reid Coat DO [address] [place] [address] Social History Tobacco Use Types Packs/Day Years [...] EDT Office Visit [facility] OB [address] [place] [phone] Liyah Galindo PA [address] [place] [address] [phone] (work) documented as of this encounter Procedures Procedure Name Priority Date/Time Associated Diagnosis Comments US VAC ASST BX BREAST RT W CLIP 05/17/2023 1:59 PM EST documented in this encounter Results * US VAC ASST BX BREAST RT W CLIP (05/17/2023 1:59 PM EST) Anatomical Region Laterality Modality Radiographic Kenna ging 05/17/2023 1:59 PM EST Narrative 05/17/2023 1:59 PM EST [address] [address] Ultrasound Report Signed Patient: CONG CASTELLANO MR#: [id number] : 1985 Acct:[id number] Age/Sex: 38 / F ADM Date: 05/17/23 Loc: US Attending Dr: Reid Cota D.O. Ordering Physician: Reid Cota D.O. Date of Service: 05/17/23 Procedure(s): US breast vac bx w/ clip RT Accession Number(s): [id number] cc: Reid Cota D.O.; Physician,Non-Staff M.Jazzy [address] [address] Patient Name: CONG CASTELLANO MRN: [id number] date: 1985 Sex: F Assigned Patient Location: US Current Patient Location: US Accession/Order Number: [id number] Exam Date: 05/17/2023 12:35 Report Date: 05/17/2023 13:59 At the request of: REID COTA Procedure: US breast vac bx w/ clip RT EXAM: US breast vac bx w/ clip RT HISTORY: right breast mass COMPARISON: Ultrasound breast right 05/02/2023 TECHNIQUE: After obtaining informed consent, ultrasound-guided biopsy was performed in the usual sterile manner. The location of the biopsy was then marked as indicated below. FINDINGS: Specimen #, Location: 4 core samples; isoechoic right breast mass for clock position 1.4 x 0.9 x 1.0 cm in size. Biopsy Needle: 13 gauge vacuum core biopsy needle. Marker(s): A single metallic marker was placed in the appropriate targeted location. Medication: Buffered 1% Lidocaine with epinephrine administered locally. Complications: None. Pathology: Pending. US/US breast vac bx w/ clip RT IMPRESSION: 1. Uneventful ultrasound-guided breast biopsy. 2. Pathology results are pending. An addendum to this report will be provided after pathology results are available. Electronically authenticated by: MANUEL CARPENTER Date: 05/17/2023 13:59 Dictated By: Manuel Carpenter M.D. Signed By: 05/17/23 1403 DD/ 3505 TD/TT: Tele Tech: Procedure Note Radiology, Radiologist, MD - 05/17/2023 [place] [address] Ultrasound Report Signed Patient: CONG CASTELLANO AMR#: [id number] : 1985Acct:[id number] Age/Sex: 38 / FADM Date: 05/17/23 Loc: US Attending Dr: Reid Cota D.O. Ordering Physician: Reid Cota D.O. Date of Service: 05/17/23 Procedure(s): US breast vac bx w/ clip RT Accession Number(s): [id number] cc: Reid Cota D.O.; Physician,Non-Staff Mike [address] [place] [id number] Patient Name: CONG CASTELLANO MRN: [id number] date: 1985 Sex: F Assigned Patient Location: US Current Patient Location: US Accession/Order Number: [id number] Exam Date: 05/17/2023 12:35 Report Date: 05/17/2023 13:59 At the request of: REID COTA Procedure: US breast vac bx w/ clip RT EXAM: US breast vac bx w/ clip RT HISTORY: right breast mass COMPARISON: Ultrasound breast right 05/02/2023 TECHNIQUE: After obtaining informed consent, ultrasound-guided biopsy was performed in the usual sterile manner. The location of the biopsy was then marked as indicated below. FINDINGS: Specimen #, Location: 4 core samples; isoechoic right breast mass forclock position 1.4 x 0.9 x 1.0 cm in size. Biopsy Needle: 13 gauge vacuum core biopsy needle. Marker(s): A single metallic marker was placed in the appropriate targeted location. Medication: Buffered 1% Lidocaine with epinephrine administered locally. Complications: None. Pathology: Pending. US/US breast vac bx w/ clip RT IMPRESSION: 1. Uneventful ultrasound-guided breast biopsy. 2. Pathology results are pending. An addendum to this report will be provided after pathology results are available. Electronically authenticated by: MANUEL CARPENTER Date: 05/17/2023 13:59 Dictated By: Manuel Carpenter M.D. Signed By:05/17/23 1401 DD/ 1359 TD/TT: Tele Tech: us Reid Cipriano DO IMG XR PROCEDURES Final Result documented in this encounter Visit Diagnoses Not on filedocumented in this encounter Care Teams Draw Frame Tender Relationship Specialty Start Date End Date Gil Ragsdale MD PCP - General Family Medicine 11/20/22 documented as of this encounter
--- OUTSIDE RECORDS SUMMARY | 2024-12-17 18:20 | XMS_ITS | Encounter Summary ---
Author Organization [facility] Address [address] [place] [address] Care Team Providers Care Rental Representative Name Role Phone Gil Ragsdale MD Primary Care Provider [phone] Encounter Details Date Type Department Care Team (Late Contact Info) Description 09/02/2024 Orders Only [facility] OB [address] [place] [address] Julissa Lei MA [address] [place] [address] [place] [address] Social History Tobacco Use Types Packs/Day Years [...] 08/25/2025 10:00 AM EDT Office Visit [facility] OB [address] [place] [address] Liyah Galindo PA [address] [facility] [address] [place], [place] [phone] documented as of this encounter Procedures Procedure Name Priority Date/Time Associated Diagnosis Comments PAP SMEAR Routine 08/19/2024 12:00 AM EST documented in this encounter Results * Pap Smear (08/19/2024 12:00 AM EST) Swab Cervical swab / Unknown us Liyah [facility] CYTOLOGY ORDERABLES Final Re sult EXTERNAL LAB documented in this encounter Visit Diagnoses Not on filedocumented in this encounter Care Teams Rental Representative Relationship Specialty Start Date End Date Gil Ragsdale MD PCP - General Family Medicine 11/20/22 documented as of this encounter
--- OUTSIDE RECORDS SUMMARY | 2024-12-17 18:20 | XMS_ITS | Encounter Summary ---
Author Organization [facility] Address [address] [place] [address] Care Team Providers Care Preschool Special Education Teacher Name Role Phone Gil Ragsdale MD Primary Care Provider [phone] Encounter Details Date Type Department Care Team (Late st Contact Info) Description 05/30/2023 Clinisync Result Encounter [facility] External Department Unsolicited Tayo Cota DO [address] [place], [place] [id number] Social History Tobacco Use Types Packs/Day Years [...] suspected to have Coronavirus/COVID-19? No / Unsure 05/25/2023 7:35 AM EST documented as of this encounter Plan of Treatment Upcoming Encounters Date Type Department Care Team (Late st Contact Info) Description 08/25/2025 10:00 AM EDT [facility] [address] Liyah Galindo PA [address] [place] [address] documented as of this encounter Procedures Procedure Name Priority Date/Time Associated Diagnosis Comments MAMMO POST BIOPSY RIGHT 05/30/2023 3:54 PM EST documented in this encounter Results * MAMMO POST BIOPSY RIGHT (05/30/2023 3:54 PM EST) Anatomical Region Laterality Modality Other 05/30/2023 3:54 PM EST Narrative 05/30/2023 3:55 PM EST [address] [address] Mammography Report Signed Patient: CONG CASTELLANO MR#: [id number] : 1985 Acct:[id number] Age/Sex: 38 / F ADM Date: 05/17/23 Loc: US Attending Dr: Tayo Cota D.O. Ordering Physician: Tayo Cota D.O. Results: Date of Service: 05/17/23 Follow Up: Procedure(s): MM post biopsy RT Accession Number(s): [id number] cc: Tayo Cota D.O.; Physician,Non-Staff Mike Patient Name: CONG CASTELLANO MR#: [id number] : 1985 Exam Date: 05/17/2023 Ordering Doctor: DR Tayo Cota . This report includes an Addendum and supersedes previous reports for this exam. RADIOLOGY REPORT PROCEDURE: MM POST BIOPSY RT COMPARISON: MM TOMOSYNTHESIS DIAGNOSTIC BI, 05/02/2023. MG MAMM SCREEN SHANTI W CAD, 08/21/2019. MG MAMM RT DIAG W CAD, 06/08/2017. MG MAMM RT DIAG W CAD, 12/07/2016. INDICATIONS: Abnormal ultrasound, post biopsy BREAST COMPOSITION: Scattered areas fibroglandular density. FINDINGS: BIOPSY MARKER: A metallic marker has been placed in the targeted location within the posterior lower inner quadrant of the right breast. BREAST FINDINGS: Expected post biopsy findings. RECOMMENDATIONS: Dictated by: Manuel Carpenter M.D. on 05/18/2023 at 13:40 Approved by: Manuel Carpenter M.D. on 05/18/2023 at 13:49 ADDENDUM: Final pathologic diagnosis: Mature adipose tissue. FINDINGS: DIAGNOSTIC CATEGORY 3--PROBABLY BENIGN FINDING. THE FOLLOWING FINDING(S) HAS A HIGH PROBABILITY OF A BENIGN ETIOLOGY: RECOMMENDATIONS: SHORT TERM FOLLOW-UP DIAGNOSTIC MAMMOGRAM RIGHT BREAST IN 6 MONTHS. Dictated by: Manuel Carpenter M.D. on 05/30/2023 at 15:51 Approved by: Manuel Carpenter M.D. on 05/30/2023 at 15:54 Dictated By: Manuel Carpenter M.D. Signed By: 05/30/23 1555 DD/ 1554 TD/TT: Tax Agent: Procedure Note Radiology, Radiologist, MD - 08/22/2023 [place] [address] Mammography Report Signed Patient: CONG CASTELLANO AMR#: [id number] : 1985Acct:[id number] Age/Sex: 38 / FADM Date: 05/17/23 Loc: US Attending Dr: Tayo Cota D.O. Ordering Physician: Tayo Cota D.O.Results: Date of Service: 05/17/23Follow Up: Procedure(s): MM post biopsy RT Accession Number(s): [id number] cc: Tayo Cota D.O.; Physician,Non-Staff Mike Patient Name: CONG CASTELLANO MR#: [id number] : 1985 Exam Date: 05/17/2023 Ordering Doctor: DR Tayo Cota . This report includes an Addendum and supersedes previous reports for this exam. RADIOLOGY REPORT PROCEDURE: MM POST BIOPSY RT COMPARISON: MM TOMOSYNTHESIS DIAGNOSTIC BI, 05/02/2023. MG MAMMSCREEN SHANTI W CAD, 08/21/2019. MG MAMM RT DIAG W CAD, 06/08/2017. MG MAMM RT DIAGW CAD, 12/07/2016. INDICATIONS: Abnormal ultrasound, post biopsy BREAST COMPOSITION: Scattered areas fibroglandular density. FINDINGS: BIOPSY MARKER: A metallic marker has been placed in the targetedlocation within the posterior lower inner quadrant of the right breast. BREAST FINDINGS: Expected post biopsy findings. RECOMMENDATIONS: Dictated by: Manuel Carpenter M.D. on 05/18/2023 at 13:40 Approved by: Manuel Carpenter M.D. on 05/18/2023 at 13:49 ADDENDUM: Final pathologic diagnosis: Mature adipose tissue. FINDINGS: DIAGNOSTIC CATEGORY 3--PROBABLY BENIGN FINDING. THE FOLLOWING FINDING(S)HAS A HIGH PROBABILITY OF A BENIGN ETIOLOGY: RECOMMENDATIONS: SHORT TERM FOLLOW-UP DIAGNOSTIC MAMMOGRAM RIGHT BREAST IN 6 MONTHS. Dictated by: Manuel Carpenter M.D. on 05/30/2023 at 15:51 Approved by: Manuel Carpenter M.D. on 05/30/2023 at 15:54 Dictated By: Manuel Carpenter M.D. Signed By:05/30/23 1555 DD/ 1554 TD/TT: Tax Agent: [facility] Cipriano DO [facility] Final Result documented in this encounter Visit Diagnoses Not on filedocumented in this encounter Care Teams Preschool Special Education Teacher Relationship Specialty Start Date End Date Gil Ragsdale MD PCP - General Family Medicine 11/20/22 documented as of this encounter
--- OUTSIDE RECORDS SUMMARY | 2024-12-17 18:20 | XMS_ITS | Encounter Summary ---
Author Organization [facility] Address [address] [place] [address] Care Team Providers Care Fractionation Supervisor Name Role Phone Gil Ragsdale MD Primary Care Provider [phone] Encounter Details Date Type Department Care Team (Late Contact Info) Description 05/18/2023 Clinisync Result Encounter [facility] External Department Unsolicited Tayo Cota DO [address] [facility] [address] [place] [id number] Social History Tobacco Use Types Packs/Day Years [...] EDT Office Visit [facility] B[facility] OB [address] [facility] [place] [address] Liyah Galindo PA [address] [facility] [address] [place], [place] [phone] documented as of this encounter Procedures Procedure Name Priority Date/Time Associated Diagnosis Comments MAMMO POST BIOPSY RIGHT 05/18/2023 1:49 PM EST documented in this encounter Results * MAMMO POST BIOPSY RIGHT (05/18/2023 1:49 PM EST) Anatomical Region Laterality Modality Other 05/18/2023 1:49 PM EST Narrative 05/18/2023 1:49 [place] [address] Mammography Report Signed Patient: CONG CASTELLANO MR#: [id number] : 1985 Acct:[id number] Age/Sex: 38 / F ADM Date: 05/17/23 Loc: US Attending Dr: Tayo Cota D.O. Ordering Physician: Tayo Cota D.O. Results: Date of Service: 05/17/23 Follow Up: Procedure(s): MM post biopsy RT Accession Number(s): [id number] cc: Tayo Cota D.O.; Physician,Non-Staff Mike Patient Name: CONG CASTELLANO MR#: [id number] : 1985 Exam Date: 05/17/2023 Ordering Doctor: DR Tayo Cota . RADIOLOGY REPORT PROCEDURE: MM POST BIOPSY RT COMPARISON: MM TOMOSYNTHESIS DIAGNOSTIC BI, 05/02/2023. MG MAMM SCREEN SHANTI W CAD, 08/21/2019. MG MAMM RT DIAG W CAD, 06/08/2017. MG MAMM RT DIAG W CAD, 12/07/2016. INDICATIONS: Abnormal ultrasound, post biopsy BREAST COMPOSITION: FINDINGS: BIOPSY MARKER: A metallic marker has been placed in the targeted location within the posterior lower inner quadrant of the right breast. BREAST FINDINGS: Expected post biopsy findings. RECOMMENDATIONS: Dictated by: Manuel Carpenter M.D. on 05/18/2023 at 13:40 Approved by: Manuel Carpenter M.D. on 05/18/2023 at 13:49 Dictated By: Manuel Carpenter M.D. Signed By: 05/18/23 5212 DD/ 1349 TD/TT: Medical Legal Investigator: Procedure Note Radiology, Radiologist, MD - 05/18/[address] [address] Mammography Report Signed Patient: CONG CASTELLANO AMR#: [id number] : 1985Acct:[id number] Age/Sex: 38 / FADM Date: 05/17/23 Loc: US Attending Dr: Tayo Cota D.O. Ordering Physician: Tayo Cota D.O.Results: Date of Service: 05/17/23Follow Up: Procedure(s): MM post biopsy RT Accession Number(s): [id number] cc: Tayo Cota D.O.; Physician,Non-Staff Mike Patient Name: CONG CASTELLANO MR#: [id number] : 1985 Exam Date: 05/17/2023 Ordering Doctor: DR Tayo Cota . RADIOLOGY REPORT PROCEDURE: MM POST BIOPSY RT COMPARISON: MM TOMOSYNTHESIS DIAGNOSTIC BI, 05/02/2023. MG MAMMSCREEN SHANTI W CAD, 08/21/2019. MG MAMM RT DIAG W CAD, 06/08/2017. MG MAMM RT DIAGW CAD, 12/07/2016. INDICATIONS: Abnormal ultrasound, post biopsy BREAST COMPOSITION: FINDINGS: BIOPSY MARKER: A metallic marker has been placed in the targetedlocation within the posterior lower inner quadrant of the right breast. BREAST FINDINGS: Expected post biopsy findings. RECOMMENDATIONS: Dictated by: Manuel Carpenter M.D. on 05/18/2023 at 13:40 Approved by: Manuel Carpenter M.D. on 05/18/2023 at 13:49 Dictated By: Manuel Carpenter M.D. Signed By:05/18/23 1350 DD/ 1349 TD/TT: Medical Legal Investigator: Tayo Cota DO [facility] Final Result documented in this encounter Visit Diagnoses Not on filedocumented in this encounter Care Teams Fractionation Supervisor Relationship Specialty Start Date End Date Gil Ragsdale MD PCP - General Family Medicine 11/20/22 documented as of this encounter
--- OUTSIDE RECORDS SUMMARY | 2024-12-17 18:20 | XMS_ITS | Encounter Summary ---
Author Organization [facility] Address [address] [place] [address] Care Team Providers Care End Matcher Name Role Phone Gil Ragsdale MD Primary Care Provider [phone] Encounter Details Date Type Department Care Team (Late st Contact Info) Description 11/02/2023 Abstract [facility] OB [address] [facility] [place] [address] Christine Gonzalez LPN [address] [facility] [address] [place] [phone] Social History Tobacco Use Types Packs/Day Years [...] 08/25/2025 10:00 AM EDT Office Visit [facility] OB [address] [facility] [place] [address] Liyah Galindo PA [address] [facility] [address] [place], [place] [phone] documented as of this encounter Visit Diagnoses Not on filedocumented in this encounter Care Teams End Matcher Relationship Specialty Start Date End Date Gil Ragsdale MD PCP - General Family Medicine 11/20/22 documented as of this encounter
--- OUTSIDE RECORDS SUMMARY | 2024-12-17 18:20 | XMS_ITS | Clinical Summary ---
Author Organization [facility] Address [address] [place] [address] Care Team Providers Care Assistant Signal Maintainer Name Role Phone Gil Ragsdale Primary Care Provider [phone] Social History Tobacco Use Types Packs/Day Years Used Date Smoking Tobacco: Never Assessed Comments Unknown Sex and Gender Information Value Date Recorded Sex Assigned at Female 10/22/2023 4:35 PM EDT Legal Sex Female 4:35 PM EDT Gender Identity Female 10/22/2023 4:35 PM EDT Sexual Orientation Straight 11/04/2023 3: 38 PM EDT Last Filed Vital Signs Vital Sign Reading Time Taken Comments Blood Pressure - - Pulse 78 11/05/2023 1:56 PM EDT Temperature - - Respiratory Rate 12 11/05/2023 1:56 PM EDT Oxygen Saturation 98% 11/05/2023 1:56 PM EDT Inhaled Oxygen Concentration - - Weight 90.3 kg (199 lb) 11/05/2023 1:56 PM EDT Height 161.5 cm (5' 3.58 ) 11/05/2023 1:56 PM ED T Body Mass Index 34.61 11/05/2023 1:56 PM EDT Plan of Treatment Health Maintenance Due Date Last Done Comments Depression Screen 1995 Varicella vaccine (1 of 2 - 13+ 2-dose series) 01/14/1996 HIV screen 1998 Hepatitis C screen 2001 Hepatitis B vaccine (1 of 3 - 19+ 3-dose series) 2002 Pap smear 01/14/2004 Cervical cancer screen 2013 HPV (without or with Pap) 2013 Breast cancer screen 2023 Lipids 2023 COVID-19 Vaccine (3 - 2023-2 5 season) 2024 10/07/2020, 09/16/2020 Flu vaccine (#1) 01/16/2025 DTaP/Tdap/Td vaccine (2 - Td or Tdap) 12/09/2029 12/10/2019 HPV vaccine Aged Out No longer eligi ble based on patient's age to complete this topic Hepatitis A vaccine Aged Out No longe r eligible based on patient's age to complete this topic Hib vaccine Aged Out No longer eligi ble based on patient's age to complete this topic Meningococcal (ACWY) vaccine Aged Out No longer eligible based on patient's age to complete this topic Meningococcal B vaccine Aged Out No l onger eligible based on patient's age to complete this topic Pneumococcal 0-49 years Vaccine Aged Out No longer eligible b ased on patient's age to complete this topic Polio vaccine Aged Out No longer elig ible based on patient's age to complete this topic Insurance [facility] Care Teams Assistant Signal Maintainer Relationship Specialty Start Date End Date Gil Ragsdale DO [address] [place] [address] PCP - General Family Medicine 11/05/23
--- OUTSIDE RECORDS SUMMARY | 2024-12-17 18:20 | XMS_ITS | Encounter Summary ---
Author Organization [facility] Address [address] [place] [address] Care Team Providers Care Director Engineering Name Role Phone Avis Ragsdale MD Primary Care Provider [phone] Encounter Details Date Type Department Care Team [...] EDT Office Visit [facility] BCP OB [address] [facility] [place] [phone] Liyah Galindo PA [address] [facility] [address] [place], [place] [phone] documented as of this encounter Procedures Procedure Name Priority Date/Time Associated Diagnosis Comments BI US BREAST LIMITED RIGHT 11/07/2023 10:27 AM EDT documented in this encounter Results * Right breast US limited (11/07/2023 10:27 AM EDT) Anatomical Region Laterality Modality Breast Right Ultrasound 11/07/2023 10:2 7 AM EDT Narrative 11/07/2023 10:28 [place] [address] Ultrasound Report Signed Patient: CONG CASTELLANO MR#: [id number] : 1985 Acct:[id number] Age/Sex: 38 / F ADM Date: 11/07/23 Loc: MAMMO Attending Dr: Akshat Ritchie D.O. Ordering Physician: Akshat Ritchie D.O. Date of Service: 11/07/23 Procedure(s): US breast RT limited Accession Number(s): [id number] cc: Akshat Ritchie D.O.; AVIS RAGSDALE Patient Name: CONG CASTELLANO MR#: [id number] : 1985 Exam Date: 11/07/2023 Ordering Doctor: [...] ovarian cancer at age 36. LOCATION: The [facility] BREAST COMPOSITION: There are scattered areas of [...] Signed By: 11/07/23 1028 DD/ 1027 TD/TT: Manager Of Patient: Procedure Note Radiology, Radiologist, MD - 11/07/2023 [place] [address] Ultrasound Report Signed Patient: CONG CASTELLANO AMR#: [id number] : 1985Acct:[id number] Age/Sex: 38 / FADM Date: 11/07/23 Loc: MAMMO Attending Dr: Akshat Ritchie D.O. Ordering Physician: Akshat Ritchie D.O. Date of Service: 11/07/23 Procedure(s): US breast RT limited Accession Number(s): [id number] cc: Akshat Ritchie D.O.; AVIS RAGSDALE Patient Name: CONG CASTELLANO MR#: [id number] : 1985 Exam Date: 11/07/2023 Ordering Doctor: [...] ovarian cancer at age 36. LOCATION: The [facility] BREAST COMPOSITION: There are scattered areas of [...] M.D. Signed By:11/07/23 1028 DD/ 1027 TD/TT: Manager Of Patient: us Akshat Ritchie DO IMG US PROCEDURES Final Result documented in this encounter Visit Diagnoses Not on filedocumented in this encounter Care Teams Director Engineering Relationship Specialty Start Date End Date Avis Ragsdale MD PCP - General Family Medicine 11/20/22 documented as of this encounter
--- OUTSIDE RECORDS SUMMARY | 2024-12-17 18:20 | XMS_ITS | Encounter Summary ---
Author Organization [facility] Address [address] [place] [address] Care Team Providers Care Court Of Appeals Judge Name Role Phone Gil Ragsdale MD Primary Care Provider [phone] Encounter Details Date Type Department Care Team (Late st Contact Info) Description 05/17/2023 Clinisync Result Encounter [facility] External Department Unsolicited Reid Cota DO [address] [place] [address] Social History Tobacco Use Types Packs/Day Years [...] EDT Office Visit [facility] [address] [facility] [place] [phone] Liyah Galindo PA [address] [place] [address] documented as of this encounter Procedures Procedure Name Priority Date/Time Associated Diagnosis Comments US VAC ASST BX BREAST RT W CLIP 05/17/2023 1:59 PM EST documented in this encounter Results * US VAC ASST BX BREAST RT W CLIP (05/17/2023 1:59 PM EST) Anatomical Region Laterality Modality Radiographic Kenna ging 05/17/2023 1:59 PM EST Narrative 01/08/2024 10:45 AM EDT The [address] [address] Ultrasound Report Signed with Addenda Patient: CONG CASTELLANO MR#: [id number] : 1985 Acct:[id number] Age/Sex: 38 / F ADM Date: 05/17/23 Loc: US Attending Dr: Reid Cota D.O. Ordering Physician: Reid Cota D.O. Date of Service: 05/17/23 Procedure(s): US breast vac bx w/ clip RT Accession Number(s): [id number] cc: Reid Cota D.O.; Physician,Non-Staff M.D. ADDENDUM The [address] [address] Patient Name: CONG CASTELLANO MRN: [id number] date: 1985 Sex: F Assigned Patient Location: Current Patient Location: US Accession/Order Number: [id number] Exam Date: 05/17/2023 12:35 Report Date: 05/25/2023 02:23 At the request of: REID COTA Procedure: US breast vac bx w/ clip RT Begin Addendum #1 COLLECTED DATE/TIME: 05/17/2023 13:36 EST Final Diagnosis Report for [facility] [place] RIGHT BREAST 4 O'CLOCK MASS, BIOPSY: -MATURE ADIPOSE TISSUE ONLY, SEE NOTE. NOTE: Multiple levels were examined. Definite breast epithelium is not seen. Microcalcification is not seen. Clinical correlation is suggested to determine if the targeted mass is adequately sampled. Intradepartmental consultation was obtained with diagnostic concurrence by Dr. Darryl Barrientos. 05/24/[address] Cota. Verified with Ernie that report was present in office. Original Report EXAM: US breast vac bx w/ clip RT HISTORY: right breast mass COMPARISON: Ultrasound breast right 05/02/2023 TECHNIQUE: After obtaining informed consent, ultrasound-guided biopsy was performed in the usual sterile manner. The location of the biopsy was then marked as indicated below. FINDINGS: Specimen #, Location: 4 core samples; isoechoic right breast mass for clock position 1. 4 x 0. 9 x 1. 0 cm in size. Biopsy Needle: 13 gauge vacuum core biopsy needle. Marker(s): A single metallic marker was placed in the appropriate targeted location. Medication: Buffered 1% Lidocaine with epinephrine administered locally. Complications: None. Pathology: Pending. Addendum Dictated By: Manuel Carpenter M.D. Addendum Signed By: <Electronically signed by Manuel Carpenter M.D.> 01/08/24 1045 Addendum Cosigned By: DD/ /07/223 TD/TT: / ADDENDUM US/US breast vac bx w/ clip RT IMPRESSION: 1. Uneventful ultrasound-guided breast biopsy. 2. Pathology results are pending. An addendum to this report will be provided after pathology results are available. Electronically authenticated by: MANUEL CARPENTER Date: 05/25/2023 02:23 Addendum Dictated By: Manuel Carpenter M.D. Addendum Signed By: <Electronically signed by Manuel Carpenter M.D.> 01/08/24 1045 Addendum Cosigned By: DD/ /07/223 TD/TT: / [address] [address] Patient Name: CONG CASTELLANO MRN: [id number] date: 1985 Sex: F Assigned Patient Location: US Current Patient Location: US Accession/Order Number: [id number] Exam Date: 05/17/2023 12:35 Report Date: 05/17/2023 [...] By: Manuel Carpenter M.D. Signed By: 05/17/23 1401 DD/ 1359 TD/TT: Leather Stretcher: Procedure Note Radiology, Radiologist, MD - 01/08/2024 [place] [address] Ultrasound Report Signed with Addenda Patient: CONG CASTELLANO AMR#: [id number] : 1985Acct:[id number] Age/Sex: 38 / FADM Date: 05/17/23 Loc: US Attending Dr: Reid Cota D.O. Ordering Physician: Reid Cota D.O. Date of Service: 05/17/23 Procedure(s): US breast vac bx w/ clip RT Accession Number(s): [id number] cc: Reid Cota D.O.; Physician,Non-Staff MMary ADDENDUM The [place] [address] Patient Name: CONG CASTELLANO MRN: [id number] date: 1985 Sex: F Assigned Patient Location: US Current Patient Location: US Accession/Order Number: [id number] Exam Date: 05/17/2023 12:35 Report Date: 05/25/2023 02:23 At the request of: REID COTA Procedure: US breast vac bx w/ clip RT Begin Addendum #1 COLLECTED DATE/TIME: 05/17/2023 13:36 EST Final Diagnosis Report for [facility] [place] RIGHT BREAST 4 O'CLOCK MASS, BIOPSY: -MATURE ADIPOSE TISSUE ONLY, SEE NOTE. NOTE: Multiple levels were examined. Definite breast epithelium is notseen. Microcalcification is not seen. Clinical correlation is suggested todetermine if the targeted mass is adequately sampled. Intradepartmental consultationwas obtained with diagnostic concurrence by Dr. Darryl Barrientos. 05/24/[address] Cota. Verified with Ernie that report was presentin office. Original Report EXAM: US breast vac bx w/ clip RT HISTORY: right breast mass COMPARISON: Ultrasound breast right 05/02/2023 TECHNIQUE: After obtaining informed consent, ultrasound-guided biopsy was performed in the usual sterile manner. The location of the biopsy was then marked as indicated below. FINDINGS: Specimen #, Location: 4 core samples; isoechoic right breast mass forclock position 1. 4 x 0. 9 x 1. 0 cm in size. Biopsy Needle: 13 gauge vacuum core biopsy needle. Marker(s): A single metallic marker was placed in the appropriate targeted location. Medication: Buffered 1% Lidocaine with epinephrine administered locally. Complications: None. Pathology: Pending. Addendum Dictated By: Manuel Carpenter M.D. Addendum Signed By: <Electronically signed by Manuel Carpenter M.D.> 01/08/24 1045 Addendum Cosigned By: DD/ /07/223 TD/TT: / ADDENDUM US/US breast vac bx w/ clip RT IMPRESSION: 1. Uneventful ultrasound-guided breast biopsy. 2. Pathology results are pending. An addendum to this report will be provided after pathology results are available. Electronically authenticated by: MANUEL CARPENTER Date: 05/25/2023 02:23 Addendum Dictated By: Manuel Carpenter M.D. Addendum Signed By: <Electronically signed by Manuel Carpenter M.D.> 01/08/24 1045 Addendum Cosigned By: DD/ /07/223 TD/TT: / [place] [address] Patient Name: CONG CASTELLANO MRN: [id number] date: 1985 Sex: F Assigned Patient Location: US Current Patient Location: Accession/Order Number: [id number] Exam Date: 05/17/2023 12:35 Report Date: 05/17/2023 [...] M.D. Signed By:05/17/23 1401 DD/ 1359 TD/TT: Leather Stretcher: us Reid Cota DO IMG XR PROCEDURES Final Result documented in this encounter Visit Diagnoses Not on filedocumented in this encounter Care Teams Court Of Appeals Judge Relationship Specialty Start Date End Date Gil Ragsdale MD PCP - General Family Medicine 11/20/22 documented as of this encounter
--- OUTSIDE RECORDS SUMMARY | 2024-12-17 18:20 | XMS_ITS | Encounter Summary ---
Author Organization [facility] Address [address] [place] [address] Care Team Providers Care Gas Meter Checker Name Role Phone Gil Ragsdale MD Primary Care Provider [phone] Encounter Details Date Type Department Care Team (Late st Contact Info) Description 05/02/2023 Clinisync Result Encounter [facility] External Department Unsolicited Tayo Cota DO [address] [place] [address] Social History Tobacco Use Types Packs/Day Years [...] EDT Office Visit [facility] [address] [facility] [place] [id number] Liyah Galindo PA [address] [place] [address] documented as of this encounter Procedures Procedure Name Priority Date/Time Associated Diagnosis Comments BI US BREAST LIMITED RIGHT 05/02/2023 11:47 AM EST documented in this encounter Results * Right breast US limited (05/02/2023 11:47 AM EST) Anatomical Region Laterality Modality Breast Right Ultrasound 05/02/2023 11:4 7 AM EST Narrative 05/02/2023 11:47 AM EST The [address] [address] Ultrasound Report Signed Patient: CONG CASTELLANO MR#: [id number] : 1985 Acct:[id number] Age/Sex: 38 / F ADM Date: 05/02/23 Loc: MAMMO Attending Dr: Tayo Cota D.O. Ordering Physician: Tayo Cota D.O. Date of Service: 05/02/23 Procedure(s): US breast RT limited Accession Number(s): [id number] cc: Tayo Cota D.O.; Physician,Non-Staff MMary Patient Name: CONG CASTELLANO MR#: [id number] : 1985 Exam Date: 05/02/2023 Ordering Doctor: [...] ovarian cancer at age 36. LOCATION: [facility] BREAST COMPOSITION: Scattered areas fibroglandular density. FINDINGS: DIAGNOSTIC CATEGORY 4--SUSPICIOUS FOR MALIGNANCY. FINDING DOES NOT EXHIBIT CLASSIC FINDINGS OF BREAST CANCER: The breasts are stable in size and overall fibroglandular configuration.Scattered benign-appearing calcifications are present. RIGHT BREAST: Mayo marker lower inner right mid breast indicates [...] Signed By: 05/02/23 1148 DD/ 1147 TD/TT: Dietary Manager: Procedure Note Radiology, Radiologist, MD - 05/02/2023 [place] [address] Ultrasound Report Signed Patient: COGN CASTELLANO [facility]#: [id number] : 1985Acct:[id number] Age/Sex: 38 / FADM Date: 05/02/23 Loc: MAMMO Attending Dr: Tayo Cota D.O. Ordering Physician: Tayo Cota D.O. Date of Service: 05/02/23 Procedure(s): US breast RT limited Accession Number(s): [id number] cc: Tayo Cota D.O.; Physician,Non-Staff Mike Patient Name: CONG CASTELLANO MR#: [id number] : 1985 Exam Date: 05/02/2023 Ordering Doctor: [...] ovarian cancer at age 36. LOCATION: [facility] BREAST COMPOSITION: Scattered areas fibroglandular density. FINDINGS: DIAGNOSTIC CATEGORY 4--SUSPICIOUS FOR MALIGNANCY. FINDING DOES NOT EXHIBIT CLASSIC FINDINGS OF BREAST CANCER: The breasts are stable in size and overall fibroglandular configuration.Scattered benign-appearing calcifications are present. RIGHT BREAST: Mayo marker lower inner right mid breast indicates [...] M.D. Signed By:05/02/23 1148 DD/ 1147 TD/TT: Dietary Manager: us Tayo Cota DO [facility] US PROCEDURES Final Result documented in this encounter Visit Diagnoses Not on filedocumented in this encounter Care Teams Gas Meter Checker Relationship Specialty Start Date End Date Gil Ragsdale MD PCP - General Family Medicine 11/20/22 documented as of this encounter
--- OUTSIDE RECORDS SUMMARY | 2024-12-17 18:20 | XMS_ITS | Encounter Summary ---
Author Organization [facility] Address [address] [place] [address] Care Team Providers Care Jackhammer Splitter Operator Name Role Phone Gil Ragsdale MD Primary Care Provider [phone] Encounter Details Date Type Department Care Team (Late Contact Info) Description 11/02/2023 Orders Only [facility] [address] [place] [address] Sera Aj MA Social History Tobacco Use Types Packs/Day Years [...] EDT Office Visit [facility] [address] [facility] [place] [address] Liyah Galindo PA [address] [place], [facility] documented as of this encounter Visit Diagnoses Not on filedocumented in this encounter Care Teams Jackhammer Splitter Operator Relationship Specialty Start Date End Date Gil Ragsdale MD PCP - General Family Medicine 11/20/22 documented as of this encounter
--- OUTSIDE RECORDS SUMMARY | 2024-12-17 18:20 | XMS_ITS | Encounter Summary ---
Author Organization [facility] Address [address] [place] [address] Care Team Providers Care Employment Specialist Name Role Phone Gil Ragsdale MD Primary Care Provider Encounter Details Date Type Department Care Team (Late Contact Info) Description 04/04/2023 Abstract [facility] [address] [place] [address] Tayo Cota DO [address] [facility] [address] [place], [facility] Social History Tobacco Use Types Packs/Day Years Used Date Smoking Tobacco: Every Day Cigarettes Tobacco Cessation:Ready to Q uit: Not Asked; Counseling Given: Not Answered Alcohol Use Standard Drinks/Week Comments Never 0 [...] [facility] [address] [place] [address] Liyah Galindo PA [address] [place], [place] [id number] documented as of this encounter Visit Diagnoses Not on filedocumented in this encounter Care Teams Employment Specialist Relationship Specialty Start Date End Date Gil Ragsdale MD PCP - General Family Medicine 11/20/22 documented as of this encounter
--- OUTSIDE RECORDS SUMMARY | 2024-12-17 19:59 | XMS_ITS | CCD ---
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 (RBC) [Ratio]Ordered By: [facility] on 05-24-2024 Erythrocyte distribution width (RBC) [Ratio] Erythrocyte distribution width [Ratio] by Automated count 11.9-15.3 [facility] Glucose [Mass/volume] in Ser um or PlasmaOrdered By: [facility] on 05-24-2024 Glucose [Mass/Vol] Glucose [Mass/volume ] in Serum or Plasma High 70-100 [facility] Comment on above: ADA recommended refe rence rangeRandom Glucose Reference Range is dependent on time and content of last meal. Glucose of more than 200 mg/dL in a nonstressed, ambulatory subject supports the diagnosis of Diabetes Mellitus. Hematocrit Auto (Bld) [Volum e fraction]Ordered By: [facility] on 05-24-2024 Hematocrit (Bld) [Volume fraction] Hematocrit [Volume Fraction] of Blood by Automated count 34.0-46.4 [facility] Hemoglobin [Mass/volume] in BloodOrdered By: [facility] on 05-24-2024 Hemoglobin (Bld) [Mass/Vol] Hemoglobin [Mass/volume] in Blood 11.8-15.4 [facility] Leukocytes [#/volume] correc bruce for nucleated erythrocytes in Blood by Automated counOrdered By: [facility] on 05-24-2024 WBC corrected for nucl RBC Auto (Bld) [#/Vol] Leukocytes [#/volume] corrected for nucleated erythrocytes in Blood by Automated coun 3.8-11.6 [facility] Lipid Profile [facility] Cholesterol [Mass/Vol] 140 mg/dL Normal 140-200 [facility] Comment on above: Result Comment: Chol less than 200 mg/dl low risk Chol 201-239 mg/dl borderline risk Chol 240 mg/dl and greater high risk Performed By: #### O [facility] LIPID, CBCNOOUTREACH, [facility] GLYCO, OUTREACH CMP #### [facility] [address] Cholesterol in HDL [Mass/Vol] 38 mg/dL Normal 23-92 [facility] Comment on above: Result Comment: HDL CHOL ATP-III CLASSIFICATION Cardiovascular Risk HDL > or equal to 60 mg/dL LOW HDL < 40 mg/dL HIGH Performed By: #### O UTRE[facility] LIPID, CBCNOOUTREACH, OUTREACH GLYCO, OUTREACH CMP #### [facility] [address] Cholesterol.total/Nasima sterol in HDL [Mass ratio] 3.7 {ratio} Normal <5.0 [facility] Comment on above: Result Comment: PERF ORMED BY: [place] [address] PATHOLOGIST HEAT REGULATOR ARTURO BURDICK M.D. Performed By: #### O UTREACH LIPID, CBCNOOUTREACH, OUTREACH GLYCO, OUTREACH CMP #### [address] LDL Cholesterol,Calculated 88 mg/dL Normal 0-100 [facility] Comment on above: Result Comment: LDL ATP III CLASSIFICATION LDL less than 100 mg/dL Optimal LDL 100-129 mg/dL Near or above optimal LDL 130-159 mg/dL Borderline high LDL 160-189 mg/dL High LDL greater than 189 mg/dL Very high Performed By: #### O UTREACH LIPID, CBCNOOUTREACH, OUTREACH GLYCO, OUTREACH CMP #### [address] Triglyceride w/Reflex 69 mg/dL Normal 0-149 [facility] Comment on above: Result Comment: TRIG ATP III CLASSIFICATION TRIG less than 150 mg/dL Normal TRIG 150-199 mg/dL Borderline high TRIG 200-500 mg/dL High TRIG greater than 500 mg/dL Very high Standard traceable to the Center for Disease Conrtrol and Prevention (CDC) test method. Performed By: #### O UTREACH LIPID, CBCNOOUTREACH, OUTREACH GLYCO, OUTREACH CMP #### [facility] [address] VLDL CHOLESTEROL 13 mg/dL Normal [facility] Comment on above: Performed By: #### O UTREACH LIPID, CBCNOOUTREACH, OUTREACH GLYCO, OUTREACH CMP #### [facility] [address] MCH Auto (RBC) [Entitic mass ]Ordered By: [facility] on 05-24-2024 MCH (RBC) [Entitic mass] MCH [Entitic mass] by Automated count 24.7-34.3 [facility] MCHC Auto (RBC) [Mass/Vol]Or dered By: [facility] on 05-24-2024 MCHC (RBC) [Mass/Vol] MCHC [Mass/volume] by Automated count 32.0-35.0 [facility] MCV Auto (RBC) [Entitic vol] Ordered By: [facility] on 05-24-2024 MCV (RBC) [Entitic vol] MCV [Entitic vol ume] by Automated count 80-100 [facility] No Panel InformationOrdered By: [facility] on 05-24-2024 Estimated GFR (CKD-EPI) > 60.0 mL/Min [facility] Creatinine Clearance (Chem N/A [facility] 05-24-2024 Glucose [Mass/Vol] 111 mg/dL Normal [facility] Comment on above: Result Comment: PERF ORMED BY: [facility] [address] [place] [address] PATHOLOGIST HEAT REGULATOR ARTURO BURDICK M.D. Performed By: #### O UTREACH LIPID, CBCNOOUTREACH, OUTREACH GLYCO, OUTREACH CMP #### [facility] [address] [id number] [facility] Outreach GlycoOrdered By: [facility] on 05-24-2024 HbA1c (Bld) [Mass fraction] 5.5 % 4.3-5.6 [facility] Comment on above: Result Comment: Incr eased risk for diabetes: 5.7 - 6.4 diabetes: >6.4 glycemic control for adults with diabetes: <7.0 Performed By: #### O UTREACH LIPID, CBCNOOUTREACH, OUTREACH GLYCO, OUTREACH CMP #### [facility] [address] [place] [id number] [facility] Increased risk for d iabetes: 5.7 - 6.4diabetes: >6.4glycemic control for adults with diabetes: <7.0 Platelet mean volume Auto (B ld) [Entitic vol]Ordered By: [facility] on 05-24-2024 Platelet mean volume (Bld) [Entitic vol] Platelet mean volume [Entitic volume] in Blood by Automated count 6.3-10.7 [facility] Platelets Auto (Bld) [#/Vol] Ordered By: [facility] on 05-24-2024 Platelets (Bld) [#/Vol] Platelets [#/vol ume] in Blood by Automated count 150-450 [facility] Potassium [Moles/volume] in Serum or PlasmaOrdered By: [facility] on 05-24-2024 Potassium [Moles/Vol] Potassium [Moles/volume] in Serum or Plasma 3.5-5.1 [facility] Protein [Mass/volume] in Ser um or PlasmaOrdered By: [facility] on 05-24-2024 Protein [Mass/Vol] Protein [Mass/volume ] in Serum or Plasma 6.4-8.9 [facility] RBC Auto (Bld) [#/Vol]Ordere d By: [facility] on 05-24-2024 RBC (Bld) [#/Vol] Erythrocytes [#/volume] in Blood by Automated count 3.60-5.00 [facility] Serum or plasma anion gap de terminationOrdered By: [facility] on 05-24-2024 Anion gap [Moles/Vol] Serum or plasma an ion gap determination 6.0-15.0 [facility] Serum or plasma total choles terol/high density lipoprotein (HDL) cholesterol mass ratOrdered By: [facility] on 05-24-2024 Cholesterol.total/Nasima sterol in HDL [Mass ratio] Serum or plasma total cholesterol/high density lipoprotein (HDL) cholesterol mass rat <5.0 [facility] Sodium [Moles/volume] in Ser um or PlasmaOrdered By: [facility] on 05-24-2024 Sodium [Moles/Vol] Sodium [Moles/volume ] in Serum or Plasma 136-145 [facility] Triglyceride [Mass/volume] i n Serum or PlasmaOrdered By: [facility] on 05-24-2024 Triglyceride [Mass/Vol] Triglyceride [Mass/volume] in Serum or Plasma 0-149 [facility] Comment on above: TRIG ATP III CLASSIF ICATIONTRIG less than 150 mg/dL NormalTRIG 150-199 mg/dL Borderline highTRIG 200-500 mg/dL High TRIG greater than 500 mg/dL Very highStandard traceable to the Center for Disease Conrtrol and Prevention (CDC) test method. Urea nitrogen [Mass/volume] in Serum or PlasmaOrdered By: [facility] on 05-24-2024 Urea nitrogen [Mass/Vol] Urea nitrogen [Mass/volume] in Serum or Plasma 7-25 [facility] Office Visiton 11-07-2023 Follow-up visit [id number] Brianna Sams 1985 F Date Provider Department Center 11/07/2023 120-VLAD, TE [facility] No family history on file Level of Service:81804 [place] OFFICE/OUTPATIENT ESTABLISHED LOW [facility] 20 MIN Reason for Visit and Comments: Follow-up [997285] - 6 month follow up Normal [facility] XR CERVICAL SPINE COMPLETE 4 -5 VIEWSon 10-18-2023 XR CERVICAL SPINE COMPLETE 4-5 VIEWS Normal cervical vertebral body height and alignment. Very mild disc space loss C5-C6. Minimal facet arthropathy. 6 x 8 mm sclerotic rimmed lucency C2 pedicle, nonaggressive, nonacute. No prevertebral soft tissue swelling. No fracture. IMPRESSION: Impression: minimal arthritis, no fracture or significant soft tissue swelling. ELECTRONICALLY SIGNED BY: Kj Rodriguez MD Normal Not Available CBC AUTO DIFFon 08-25-2022 BASO # 0.1 103/ul Normal 0.0-0.1 [facility] Comment on above: Performed By: #### C BC #### [facility] [address] [place] [address] Dr. Sharla Lucas Basophils/100 WBC (Bld) 0.7 % Normal 0.2-2.0 [facility] Comment on above: Performed By: #### C BC #### [facility] [address] [place] [address] Dr. Sharla Lucas EO # 0.2 103/ul Normal 0.0-0.7 [facility] Comment on above: Performed By: #### C BC #### [facility] [address] [place] [address] Dr. Sharla Lucas Eosinophils/100 WBC (Bld) 1.9 % Normal 0.9-7.0 [facility] Comment on above: Performed By: #### C BC #### [facility] [address] [place] [address] Dr. Sharla Lucas Erythrocyte distribution width (RBC) [Ratio] 12.8 % Normal 11.0-15.0 [facility] Comment on above: Performed By: #### C BC #### [facility] [address] [place] [address] Dr. Sharla Lucas Hematocrit (Bld) [Volume fraction] 42.6 % Normal 36.0-48.0 [facility] Comment on above: Performed By: #### C BC #### [facility] [address] [place] [address] Dr. Sharla Lucas Hemoglobin (Bld) [Mass/Vol] 14.3 g/dL Normal 12.0-16.0 [facility] Comment on above: Performed By: #### C BC #### [facility] [address] [place] [address] Dr. Sharla Lucas IG # 0.03 10e3/ul Normal 0.00-0.03 [facility] Comment on above: Performed By: #### C BC #### [facility] [address] [place] [address] Dr. Sharla Lucas IG % 0.3 % Normal 0.0-0.5 [facility] Comment on above: Performed By: #### C BC #### [facility] [address] [place] [address] Dr. Sharla Lucas LYMPH # 2.1 103/ul Normal 1.2-3.8 [facility] Comment on above: Performed By: #### C BC #### [facility] [address] [place] [address] Dr. Sharla Lucas Lymphocytes/100 WBC (Bld) 22.0 % Normal 20.5-60.0 [facility] Comment on above: Performed By: #### C BC #### [facility] [address] [place] [address] Dr. Sharla Lucas MANUAL DIFF REQ NO Normal [facility] Comment on above: Performed By: #### C BC #### [facility] [address] [place] [address] Dr. Sharla Lucas MCH (RBC) [Entitic mass] 29.9 pg Normal 26.7-34.0 [facility] Comment on above: Performed By: #### C BC #### [facility] [address] [place] [address] Dr. Sharla Lucas MCHC (RBC) [Mass/Vol] 33.6 g/dL Normal 29.9-35.2 [facility] Comment on above: Performed By: #### C BC #### [facility] [address] [place] [address] Dr. Sharla Lucas MCV (RBC) [Entitic vol] 89.1 fL Normal 81.0-99.0 [facility] Comment on above: Performed By: #### C BC #### [facility] [address] [place] [address] Dr. Sharla Lucas MONO # 0.7 103/ul Normal 0.3-0.8 [facility] Comment on above: Performed By: #### C BC #### [facility] [address] [place] [address] Dr. Sharla Lucas Monocytes/100 WBC (Bld) 7.3 % Normal 1.7-12.0 [facility] Comment on above: Performed By: #### C BC #### [facility] [address] [place] [address] Dr. Sharla Lucas NEUT # 6.6 103/ul Critically high 1.4-6.5 [facility] Comment on above: Performed By: #### C BC #### [facility] [address] [place] [address] Dr. Sharla Lucas Neutrophils/100 WBC (Bld) 67.8 % Normal 43.0-75.0 [facility] Comment on above: Performed By: #### C BC #### [facility] [address] [place] [address] Dr. Sharla Lucas Platelet mean volume (Bld) [Entitic vol] 9.1 fL Critically low 9.5-13.5 [facility] Comment on above: Performed By: #### C BC #### [facility] [address] [place] [address] Dr. Sharla Lucas PLT 302 103/ul Normal 150-450 [facility] Comment on above: Performed By: #### C BC #### [facility] [address] [place] [address] Dr. Sharla Lucas RBC 4.78 106/ul Normal 4.20-5.40 [facility] Comment on above: Performed By: #### C BC #### [facility] [address] [place] [address] Dr. Sharla Lucas WBC 9.7 103/ul Normal 4.0-11.0 [facility] Comment on above: Performed By: #### C BC #### [facility] [address] [place] [address] Dr. Sharla Lucas PROF 14(COMP METB)on 023 Albumin [Mass/Vol] 3.5 g/dL Normal 3.4-5.0 [facility] Comment on above: Performed By: #### C MP, TSH, HSTROPN #### [facility] [address] [place] [address] Dr. Sharla Lucas Albumin/Globulin [Mass ratio] 1.0 {ratio} Normal [facility] Comment on above: Performed By: #### C MP, TSH, HSTROPN #### [facility] [address] [place] [address] Dr. Sharla Lucas ALP [Catalytic activity/Vol] 88 U/L Normal 46-116 [facility] Comment on above: Performed By: #### C MP, TSH, HSTROPN #### [facility] [address] [place] [address] Dr. Sharla Lucas ALT [Catalytic activity/Vol] 14 U/L Normal 14-59 [facility] Comment on above: Performed By: #### C MP, TSH, HSTROPN #### [facility] [address] [address] [address] Sharla Lucas Anion gap [Moles/Vol] 12.7 mmol/L Normal Th e [facility] Comment on above: Performed By: #### C MP, TSH, HSTROPN #### [facility] [address] [address] [address] Sharla Lucas AST [Catalytic activity/Vol] 12 U/L Critically low 15-37 [facility] Comment on above: Performed By: #### C MP, TSH, HSTROPN #### [facility] [address] [place] [address] Dr. Sharla Lucas Bilirubin [Mass/Vol] 0.3 mg/dL Normal 0.2-1.0 [facility] Comment on above: Performed By: #### C MP, TSH, HSTROPN #### [facility] [address] [place] [address] Dr. Sharla Lucas Calcium [Mass/Vol] 8.8 mg/dL Normal 8.5-10.1 [facility] Comment on above: Performed By: #### C MP, TSH, HSTROPN #### [facility] [address] [place] [address] Dr. Sharla Lucas Chloride [Moles/Vol] 109 mmol/L Critically high 98-107 [facility] Comment on above: Performed By: #### C MP, TSH, HSTROPN #### [facility] [address] [place] [address] Dr. Sharla Lucas CO2 [Moles/Vol] 25.2 mmol/L Normal 21.0-32.0 [facility] Comment on above: Performed By: #### C MP, TSH, HSTROPN #### [facility] [address] [place] [address] Dr. Sharla Lucas Creatinine [Mass/Vol] 0.72 mg/dL Normal 0.55-1.02 [facility] Comment on above: Performed By: #### C MP, TSH, HSTROPN #### [facility] [address] [address] [address] Sharla Lucas EGFR-AF NAMIBIAN >60 Normal >=60 [facility] Comment on above: Performed By: #### C MP, TSH, HSTROPN #### [facility] [address] [address] [address] Sharla Lucas EGFR-NON AF NAMIBIAN >60 Normal >=60 [facility] Comment on above: Performed By: #### C MP, TSH, HSTROPN #### [facility] [address] [address] [address] Sharla Lucas Globulin (S) [Mass/Vol] 3.5 g/dL Normal T [facility] Comment on above: Performed By: #### C MP, TSH, HSTROPN #### [facility] [address] [address] [address] Sharla Lucas Glucose [Mass/Vol] 102 mg/dL Normal 74-106 [facility] Comment on above: Performed By: #### C MP, TSH, HSTROPN #### [facility] [address] [address] [address] Sharla Lucas Potassium [Moles/Vol] 3.9 mmol/L Normal 3.5-5.1 [facility] Comment on above: Performed By: #### C MP, TSH, HSTROPN #### [facility] [address] [address] [address] Sharla Lucas Protein [Mass/Vol] 7.0 g/dL Normal 6.4-8.2 [facility] Comment on above: Performed By: #### C MP, TSH, HSTROPN #### [facility] [address] [place] [address] Dr. Sharla Lucas Sodium [Moles/Vol] 143 mmol/L Normal 136-145 [facility] Comment on above: Performed By: #### C MP, TSH, HSTROPN #### [facility] [address] [address] [address] Sharla Lucas Urea nitrogen [Mass/Vol] 7.0 mg/dL Normal 7.0-18.0 [facility] Comment on above: Performed By: #### C MP, TSH, HSTROPN #### [facility] [address] [place] [address] Dr. Sharla Lucas Urea nitrogen/Creatinine [Mass ratio] 9.7 mg/mg Normal [facility] Comment on above: Performed By: #### C MP, TSH, HSTROPN #### [facility] [address] [place] [address] Dr. Sharla Lucas PROTIMEon 08-25-2022 INR Coag (PPP) [Relative time] {INR} Normal [facility] Comment on above: Performed By: #### P T, PTT #### [facility] [address] [place] [address] Dr. Sharla Lucas INR GUIDELINES SEE BELOW Normal [facility] Comment on above: Result Comment: SITA RED INR: 2.0 - 3.0 CONDITIONS NOT LISTED BELOW 2.5 - 3.5 FOR PROSTHETIC HEART VALVE REPLACEMENT 2.5 - 3.5 RECURRENT THROMBOSIS Performed By: #### P T, PTT #### [facility] [address] [place] [address] Dr. Sharla Lucas PT Coag (PPP) [Time] 9.8 s Normal 9.0-11.6 [facility] Comment on above: Performed By: #### P T, PTT #### [facility] [address] [place] [address] Dr. Sharla Lucas PTTon 08-25-2022 aPTT Coag (Bld) [Time] 27.8 s Normal 22.3-36.2 Th [facility] Comment on above: Performed By: #### P T, PTT #### [facility] [address] [place] [address] Dr. Sharla Lucas TROPONIN, HIGH SENSITIVITYon 08-25-2022 HSTROP <4.0 Normal 4.0-51.3 [facility] Comment on above: Result Comment: CUT- OFF POINTS HAVE BEEN ESTABLISHED BASED ON THE FOURTH UNIVERSAL DEFINITIONS OF MYOCARDIAL INFARCTION. THE UPPER REFERENCE LIMIT (URL) OF TROPONIN, DEFINED THE 99TH PERCENTILE OF cTnI DISTRIBUTION IN A REFERENCE POPULATION, HAS BEEN CONFIRMED THE DECISION THRESHOLD FOR HI DIAGNOSIS. Performed By: #### C MP, TSH, HSTROPN #### [facility] [address] [address] [address] Sharla Lucas TSHon 08-25-2022 TSH 0.952 uIU/mL Normal 0.358-3.740 [facility] Comment on above: Performed By: #### C MP, TSH, HSTROPN #### [facility] [address] [address] [address] Sharla Lucas XR CHEST 1 Von 08-25-2022 XR CHEST 1 V EXAM: XR CHEST 1 V a t 1626 hours HISTORY: CHEST PAIN, UNSPECIFIED COMPARISON: 06/29/2020 TECHNIQUE: AP upright portable chest x-ray FINDINGS: The heart is not enlarged and the vasculature is not distended. No acute infiltrate, effusion or pneumothorax is identified. The osseous structures are grossly intact with prior trauma or surgery involving the distal right clavicle. IMPRESSION: No acute infiltrate or evidence of cardiac decompensation. The overall appearance of the chest is unchanged. Electronically authenticated by: CEZAR DESAI Date: 2022-08-25 17:10 Normal [facility] Quick Strepon 07-19-2022 S. pyogenes Org specific cx Ql (Throat) Negative Pure [employer] Other Quick Strep [employer] Other PAP ACOG PANEL 2: 30 to 65on 03-29-2022 . . Normal [facility] Comment on above: Result Comment: Perf ormed at: [facility] Performed By: #### [id number] #### [facility] [address] [place] [address] Dr. Sharla Lucas Age Gdln ACOG Testing 30-63 [facility] Comment on above: Performed By: #### [id number] #### [facility] [address] [place], [place] [address] Dr. Sharla Lucas DIAGNOSIS: Comment Normal [facility] Comment on above: Result Comment: NEGA TIVE FOR INTRAEPITHELIAL LESION OR MALIGNANCY. Performed at: [facility] Performed By: #### [id number] #### [facility] [address] [place] [address] Dr. Sharla Lucas HPV Aptima Negative Normal Negative [facility] Comment on above: Result Comment: This nucleic acid amplification test detects fourteen high-risk HPV types (16,18,31,33,35,39,45,51,52,56,58,59,66,68) without differentiation. Performed at: =G Performed By: #### [id number] #### [facility] [address] [place] [address] Dr. Sharla Lucas Methodology: Comment Normal [facility] Comment on above: Result Comment: This liquid based ThinPrep(R) pap test was screened with the use of an image guided system. Performed at: WB Performed By: #### [id number] #### [facility] [address] [place] [address] Dr. Sharla Lucas Note: Comment Normal [facility] Comment on above: Result Comment: The Pap smear is a screening test designed to aid in the detection of premalignant and malignant conditions of the uterine cervix. It is not a diagnostic procedure and should not be used as the sole means of detecting cervical cancer. Both false-positive and false-negative reports do occur. . Performed at: WB Performed By: #### [id number] #### [facility] [address] [place] [address] Dr. Sharla Lucas Performed by: Comment Normal [facility] Comment on above: Result Comment: Evie Paniagua Member Service Representative Performed at: BA Performed By: #### [id number] #### [facility] [address] [place] [address] Dr. Sharla Lucas Specimen adequacy: Comment Normal [facility] Comment on above: Result Comment: Sati sfactory for evaluation. No endocervical component is identified. Performed at: BA Performed By: #### [id number] #### [facility] [address] [place] [address] Dr. Sharla Lucas OCC BLD IMMUNOASSAYon 2021 OCCULT BLOOD Negative Normal NEGATIVE [facility] Comment on above: Performed By: #### O HARLAN #### [facility] [address] [place], [place] [address] Dr. Sharla Lucas COVID Quick Testingon 2020 Result Negative [facility] Other COVID Quick Testingon 2020 COVID Quick Testing [facility] Other Cardiovascular Lab Reporton 01-12-2021 Cardiovascular Lab Report [facility] Patient Name: Brianna Sams [facility] MR #: [id number] Physician: Jovanni Osuna MD Department of Service Date: 01/12/2021 Medicine Birthdate: 1985 Division of Room #: CC Cardiology Adult Cardiovascular Services [facility] [address] [facility]. [place] [address] Cardiovascular Laboratory Report LOOP IMPLANT PROCEDURE NOTE DATE OF PROCEDURE: 01/12/2021 PERFORMING PHYSICIAN: Dr. Jovanni Osuna INDICATIONS FOR PROCEDURE: 1. Palpitations CONSENT: Patient LOCATION: EP Lab PROCEDURAL SEDATION: None FLUOROSCOPY TIME: 0min PREPARATION: Preoperative antibiotics was administered. PROCEDURES PERFORMED: 1. LOOP implant PROCEDURE NOTE: The patient is a 35-year-old lady with a history of palpitation, which was previously evaluated with a loop monitor. Unfortunately, due to infection, the LOOP had to be taken out by Dr. Bustos. Subsequent to that, she reported episodes of palpitation, but evaluation does not reveal any clear etiology. Hence, the decision was made to proceed with a loop monitor. The risks, benefits and alternatives of the procedure were discussed with the patient who agreed to proceed. Please refer to my consult note for details of the discussion and of indications. Patient was brought to the EP lab in the post absorptive state. A procedural pause was performed verifying the patient, the procedure. Sterile prep and drape were performed over the left precordium and anesthesia with 1% lidocaine was followed by a small incision was made in the 3rd intercostal space near the sternum on the left using the [place] SOASTA tool. The loop recorder was then injected subcutaneously. Interrogation of the device noted good sensing parameters. Technical details of the device as noted below. The skin was then closed with 3-0 absorbable monofilament suture and glue applied to hold the edges together. Tegaderm was applied to cover the wound. The patient appeared to tolerate the procedure well and was returned to her room in stable condition. No complications were immediately observed. LOOP details: Device Model: M301 Lux-Dx Serial#: [id number] Sensing is 0.2 mV. IMPRESSION: Successful placement of LOOP implant with excellent sensing parameters. RECOMMENDATIONS: 1. Occlusive dressing to be changed after 14 days. 2. Do not wet the incision. Jovanni Osuna MD Cardiac Electrophysiology Electronically Signed by: Jovanni Osuna MD 01/22/2021 05:25 P Jovanni Osuna MD Date Dict: 01/12/2021/09:45 A/Jovanni Osuna MD Date Trans: 01/12/2021 09:56 A/casa [id number] cc: Avis Prince DO [address] [facility] [address] Vital Signs Date Time Vital Sign Value Performing Clinician Facility 11-17-2024 10:16-0400 Body height 158.75 cm [facility] 11-17-2024 10:16-0400 Body mass index (BMI) [Ratio] 36.2 kg/m2 [facility] 11-17-2024 10:16-0400 Body temperature 97.8 [degF] [facility] 11-17-2024 10:16-0400 Body weight 91.37 kg [facility] 11-17-2024 10:16-0400 Diastolic blood pressure 86 mm[Hg] [facility] 11-17-2024 10:16-0400 Heart rate 100 /min [facility] 11-17-2024 10:16-0400 Respiratory rate 18 /min [facility] 11-17-2024 10:16-0400 SaO2% (BldA) [Mass fraction] 99 % [facility] 11-17-2024 10:16-0400 Systolic blood pressure 122 mm[Hg] [facility] 08-19-2024 09:14-0500 Body mass index (BMI) [Ratio] 36.63 kg/m2 Liyah López PA Work Phone: [facility] 08-19-2024 09:14-0500 Body weight 93.8 kg Liyah López PA Work Phone: [facility] 08-19-2024 09:14-0500 Diastolic blood pressure 82 mm[Hg] Liyah López PA Work Phone: [facility] 08-19-2024 09:14-0500 Systolic blood pressure 106 mm[Hg] Liyah López PA Work Phone: [facility] 07-10-2024 08:33-0500 Body height 158.75 cm Avis Suresh MALIN Work Phone: [facility] 07-10-2024 08:33-0500 Body mass index (BMI) [Ratio] 37.2 kg/m2 Avis Prince DO Work Phone: [facility] 07-10-2024 08:33-0500 Body weight 93.89 kg Avis Suresh MALIN Work Phone: [facility] 07-10-2024 08:33-0500 Diastolic blood pressure 62 mm[Hg] Avis Suresh MALIN Work Phone: [facility] 07-10-2024 08:33-0500 Heart rate 68 /min Avis Suresh MALIN Work Phone: [facility] 07-10-2024 08:33-0500 SaO2% (BldA) [Mass fraction] 99 % Avis Suresh Work Phone: [facility] 07-10-2024 08:33-0500 Systolic blood pressure 110 mm[Hg] Avis Suresh MALIN Work Phone: [facility] 03-19-2024 09:57-0400 Body height 158.75 cm [facility] 03-19-2024 09:57-0400 Body mass index (BMI) [Ratio] 36.8 kg/m2 [facility] 03-19-2024 09:57-0400 Body weight 92.98 kg [facility] 03-19-2024 09:57-0400 Diastolic blood pressure 74 mm[Hg] [facility] 03-19-2024 09:57-0400 Heart rate 84 /min [facility] 03-19-2024 09:57-0400 Respiratory rate 18 /min [facility] 03-19-2024 09:57-0400 SaO2% (BldA) [Mass fraction] 98 % [facility] 03-19-2024 09:57-0400 Systolic blood pressure 132 mm[Hg] [facility] 01-07-2024 13:36-0400 Body height 158.75 cm [facility] 01-07-2024 13:36-0400 Body mass index (BMI) [Ratio] 36 kg/m2 [facility] 01-07-2024 13:36-0400 Body weight 90.71 kg [facility] 01-07-2024 13:36-0400 Diastolic blood pressure 84 mm[Hg] [facility] 01-07-2024 13:36-0400 Heart rate 86 /min [facility] 01-07-2024 13:36-0400 SaO2% (BldA) [Mass fraction] 98 % [facility] 01-07-2024 13:36-0400 Systolic blood pressure 138 mm[Hg] [facility] 11-05-2023 08:36-0400 Body height 158.75 cm [facility] 11-05-2023 08:36-0400 Body mass index (BMI) [Ratio] 35.8 kg/m2 [facility] 11-05-2023 08:36-0400 Body weight 90.26 kg [facility] 11-05-2023 08:36-0400 Diastolic blood pressure 80 mm[Hg] [facility] 11-05-2023 08:36-0400 Heart rate 84 /min [facility] 11-05-2023 08:36-0400 SaO2% (BldA) [Mass fraction] 98 % [facility] 11-05-2023 08:36-0400 Systolic blood pressure 148 mm[Hg] [facility] 06-29-2023 11:15-0500 Body height 158.75 cm Avis Suresh Other [employer] Other 06-29-2023 11:15-0500 Body mass index (BMI) [Ratio] 36.89 kg/m2 Avis Suresh Other [employer] Other 06-29-2023 11:15-0500 Body weight 92.99 kg Avis Suresh Other [employer] Other 06-29-2023 11:15-0500 Diastolic blood pressure 86 mm[Hg] Avis Prince Other [employer] Other 06-29-2023 11:15-0500 Respiratory rate 16 /min Avis Suresh Other [employer] Other 06-29-2023 11:15-0500 SaO2% (BldA) [Mass fraction] 98 % Avisfranky Prince Other [employer] Other 06-29-2023 11:15-0500 Systolic blood pressure 136 mm[Hg] Avis Prince Other [employer] Other 07-19-2022 16:00-0500 Body height 158.75 cm Jimi Chou Other [employer] Other 07-19-2022 16:00-0500 Body mass index (BMI) [Ratio] 37.27 kg/m2 Jimi Chou Other [employer] Other 07-19-2022 16:00-0500 Body temperature 98.4 [degF] Jimi Chou Other [employer] Other 07-19-2022 16:00-0500 Body weight 93.94 kg Jimi Chou Other [employer] Other 07-19-2022 16:00-0500 Diastolic blood pressure 92 mm[Hg] Jimi Chou Other [employer] Other 07-19-2022 16:00-0500 Respiratory rate 16 /min Jimi Chou Other [employer] Other 07-19-2022 16:00-0500 SaO2% (BldA) [Mass fraction] 99 % Jimi Chou Other [employer] Other 07-19-2022 16:00-0500 Systolic blood pressure 142 mm[Hg] Jimi Chou Other [employer] Other 06-26-2022 17:00-0500 Body height 158.75 cm Jimi Chou Other [employer] Other 06-26-2022 17:00-0500 Body mass index (BMI) [Ratio] 38.51 kg/m2 Jimi Chou Other [employer] Other 06-26-2022 17:00-0500 Body weight 97.07 kg Jimi Chou Other [employer] Other 06-26-2022 17:00-0500 Diastolic blood pressure 80 mm[Hg] Jimi Chou Other [employer] Other 06-26-2022 17:00-0500 Respiratory rate 16 /min Jimi Binks Other [employer] Other 06-26-2022 17:00-0500 SaO2% (BldA) [Mass fraction] 99 % Jimi Binks Other [employer] Other 06-26-2022 17:00-0500 Systolic blood pressure 124 mm[Hg] Jimi Binks Other [employer] Other 05-26-2022 11:00-0500 Body height 158.75 cm Jimi Binks Other [employer] Other 05-26-2022 11:00-0500 Body mass index (BMI) [Ratio] 38.5 kg/m2 Jimi Binks Other [employer] Other 05-26-2022 11:00-0500 Body weight 97.03 kg Jimi Binks Other [employer] Other 05-26-2022 11:00-0500 Diastolic blood pressure 78 mm[Hg] Jimi Binks Other [employer] Other 05-26-2022 11:00-0500 Respiratory rate 16 /min Jimi Binks Other [employer] Other 05-26-2022 11:00-0500 SaO2% (BldA) [Mass fraction] 97 % Jimi Binks Other [employer] Other 05-26-2022 11:00-0500 Systolic blood pressure 120 mm[Hg] Jimi Binks Other [employer] Other 04-20-2022 17:15-0400 Body height 158.75 cm Avis Prince Other [employer] Other 04-20-2022 17:15-0400 Body mass index (BMI) [Ratio] 38.48 kg/m2 Avis Prince Other [employer] Other 04-20-2022 17:15-0400 Body weight 96.98 kg Avis Prince Other [employer] Other 04-20-2022 17:15-0400 Diastolic blood pressure 84 mm[Hg] Avis Prince Other [employer] Other 04-20-2022 17:15-0400 Respiratory rate 16 /min Avis rPince Other [employer] Other 04-20-2022 17:15-0400 SaO2% (BldA) [Mass fraction] 98 % Avis Prince Other [employer] Other 04-20-2022 17:15-0400 Systolic blood pressure 118 mm[Hg] Avis Prince Other [employer] Other 01-19-2022 12:00-0400 Body height 158.75 cm Avis Prince Other [employer] Other 01-19-2022 12:00-0400 Body mass index (BMI) [Ratio] 39.36 kg/m2 Avis Prince Other [employer] Other 01-19-2022 12:00-0400 Body weight 99.2 kg Avis Prince Other [employer] Other 01-19-2022 12:00-0400 Diastolic blood pressure 64 mm[Hg] Avis Nammer Other [employer] Other 01-19-2022 12:00-0400 Respiratory rate 16 /min Avis Nammer Other [employer] Other 01-19-2022 12:00-0400 SaO2% (BldA) [Mass fraction] 99 % Avis Nammer Other [employer] Other 01-19-2022 12:00-0400 Systolic blood pressure 132 mm[Hg] Avis Nammer Other [employer] Other 11-17-2021 17:15-0400 Body height 158.75 cm Avis Nammer Other [employer] Other 11-17-2021 17:15-0400 Body mass index (BMI) [Ratio] 39.34 kg/m2 Avis Nammer Other [employer] Other 11-17-2021 17:15-0400 Body weight 99.16 kg Avis Suresh Other [employer] Other 11-17-2021 17:15-0400 Diastolic blood pressure 86 mm[Hg] Avis Suresh Other [employer] Other 11-17-2021 17:15-0400 Respiratory rate 16 /min Avis Surseh Other [employer] Other 11-17-2021 17:15-0400 SaO2% (BldA) [Mass fraction] 98 % Avis Suresh Other [employer] Other 11-17-2021 17:15-0400 Systolic blood pressure 134 mm[Hg] Avis Suresh Other [employer] Other 10-19-2021 14:00-0400 Body height 158.75 cm Avis Suresh Other [employer] Other 10-19-2021 14:00-0400 Body mass index (BMI) [Ratio] 40.47 kg/m2 Avis Suresh Other [employer] Other 10-19-2021 14:00-0400 Body weight 102.01 kg Avis Prince Other [employer] Other 10-19-2021 14:00-0400 Diastolic blood pressure 104 mm[Hg] Avis Suresh Other [employer] Other 10-19-2021 14:00-0400 Respiratory rate 16 /min Avis Suresh Other [employer] Other 10-19-2021 14:00-0400 SaO2% (BldA) [Mass fraction] 99 % Avis Prince Other [employer] Other 10-19-2021 14:00-0400 Systolic blood pressure 134 mm[Hg] Avis Prince Other [employer] Other 07-27-2021 12:30-0500 Body height 158.75 cm Avis Prince Other [employer] Other 07-27-2021 12:30-0500 Body mass index (BMI) [Ratio] 22.5 kg/m2 Avis Suresh Other [employer] Other 07-27-2021 12:30-0500 Body weight 56.7 kg Avis Suresh Other [employer] Other 07-27-2021 12:30-0500 Diastolic blood pressure 62 mm[Hg] Avis Prince Other [employer] Other 07-27-2021 12:30-0500 Respiratory rate 16 /min Avis Prince Other [employer] Other 07-27-2021 12:30-0500 SaO2% (BldA) [Mass fraction] 99 % Avis Prince Other [employer] Other 07-27-2021 12:30-0500 Systolic blood pressure 118 mm[Hg] Avis Prince Other [employer] Other 05-05-2021 11:00-0500 Body height 158.75 cm Avis Prince Other [employer] Other 05-05-2021 11:00-0500 Body temperature 98 [degF] Avis Prince Other [employer] Other 05-05-2021 11:00-0500 Diastolic blood pressure 92 mm[Hg] Avis Prince Other [employer] Other 05-05-2021 11:00-0500 Respiratory rate 16 /min Avis Prince Other [employer] Other 05-05-2021 11:00-0500 SaO2% (BldA) [Mass fraction] 98 % Avis Suresh Other [employer] Other 05-05-2021 11:00-0500 Systolic blood pressure 136 mm[Hg] Avis Prince Other [employer] Other 04-11-2021 17:15-0400 Body height 158.75 cm Avis Prince Other [employer] Other 04-11-2021 17:15-0400 Body mass index (BMI) [Ratio] 41.39 kg/m2 Avis Prince Other [employer] Other 04-11-2021 17:15-0400 Body temperature 97.4 [degF] Avis Prince Other [employer] Other 04-11-2021 17:15-0400 Body weight 104.33 kg Avis Suresh Other [employer] Other 04-11-2021 17:15-0400 Diastolic blood pressure 74 mm[Hg] Avis Prince Other [employer] Other 04-11-2021 17:15-0400 Respiratory rate 16 /min Avis Prince Other [employer] Other 04-11-2021 17:15-0400 SaO2% (BldA) [Mass fraction] 99 % Avis Prince Other [employer] Other 04-11-2021 17:15-0400 Systolic blood pressure 118 mm[Hg] Avis Prince Other [employer] Other 03-31-2021 16:15-0400 Body height 158.75 cm Avis Prince Other [employer] Other 03-31-2021 16:15-0400 Body temperature 98.7 [degF] Avis Prince Other [employer] Other 03-31-2021 16:15-0400 Respiratory rate 18 /min Avis Prince Other [employer] Other 03-31-2021 16:15-0400 SaO2% (BldA) [Mass fraction] 98 % Avis Prince Other [employer] Other Encounters Encounter Date Encounter Type Care Provider Facility Start: 11-17-2024 End: 11-17-2024 ambulatory [facility] Work Phone: Start: 11-17-2024 End: 11-17-2024 Patient encounter procedure [facility] Physician [facility] [place] Work Phone: Start: 08-19-2024 End: 08-19-2024 Bamboo flowsheet Liyah SCHAEFFER Work Phone: [facility] Start: 08-19-2024 End: 08-19-2024 Bamboo flowsheet Liyah SCHAEFFER Work Phone: [facility] Start: 08-19-2024 Non-patient / Non-visit [facility] Physician [facility] [employer] Work Phone: Start: 08-19-2024 End: 08-19-2024 Patient encounter procedure Liyah SCHAEFFER Work Phone: [facility] Start: 08-19-2024 End: 08-19-2024 Periodic preventive med est patient 40-64yrs Liyah SCHAEFFER Work Phone: [facility] Comment on above: Well woman exam with routine gynecological exam; Encounter for screening mammogram for malignant neoplasm of breast; Vaginal dryness Start: 08-19-2024 End: 08-19-2024 ambulatory LIYAH LÓPEZ Not Available Start: 07-10-2024 End: 07-10-2024 ambulatory Avis Torre Suresh DO Work Phone: [facility] Work Phone: Start: 07-10-2024 End: 07-10-2024 Encounter for general adult medical examination without abnormal findings Avis Suresh DO Work Phone: [facility] Start: 07-10-2024 End: 07-10-2024 Patient encounter procedure Avis Suresh DO Work Phone: [facility] Physician [facility] [place] Work Phone: Start: 05-27-2024 End: 05-27-2024 [facility] Start: 05-24-2024 End: 05-24-2024 Departed Referred Avis Nammer DO Work Phone: [facility] Work Phone: Start: 05-24-2024 End: 05-24-2024 ambulatory Outreach Pending [facility] To [facility] Start: 03-19-2024 End: 03-19-2024 ambulatory [facility] Work Phone: Start: 03-19-2024 End: 03-19-2024 Patient encounter procedure [facility] Physician [facility] [place] Work Phone: Start: 01-07-2024 End: 01-07-2024 ambulatory [facility] Work Phone: Start: 01-07-2024 End: 01-07-2024 Patient encounter [facility] [place] Work Phone: Start: 12-05-2023 ambulatory MY YANG [facility] Start: 11-07-2023 End: 11-07-2023 ambulatory TE CHU [facility] Start: 11-05-2023 End: 11-05-2023 ambulatory [facility] Work Phone: Start: 11-05-2023 End: 11-05-2023 Patient encounter procedure [facility] [place] Work Phone: Start: 10-22-2023 End: 10-22-2023 ambulatory DENISE WINTERS Not Available Start: 10-18-2023 End: 10-18-2023 ambulatory SRUTHI CORTÉSRAJANI Not Available Start: 10-15-2023 End: 10-15-2023 ambulatory REID COLUNGAZIO Not Available Start: 10-10-2023 Non-patient / Non-visit [facility] [employer] Work Phone: Start: 10-10-2023 [facility] Start: 07-02-2023 End: 07-02-2023 ambulatory Avis Prince Other [employer] Other Start: 07-02-2023 Telephone encounter Avis Suresh [facility] [place] Start: 06-29-2023 End: 06-29-2023 ambulatory Avis Nammer Other [employer] Other Start: 06-29-2023 Encounter for genera l adult medical examination without abnormal findings Avis Prince [facility] [place] Start: 06-29-2023 Periodic preventive med est patient 40-64yrs Avis Prince [facility] [place] Start: 06-21-2023 End: 06-21-2023 ambulatory Avis Suresh Other [employer] Other Start: 06-21-2023 Telephone encounter Avis Suresh [facility] [place] Start: 04-19-2023 End: 04-19-2023 ambulatory Avis Prince Other [employer] Other Start: 04-19-2023 Telephone encounter Avis Powell [facility] [place] Start: 12-28-2022 End: 12-28-2022 ambulatory Avis Prince Other [employer] Other Start: 12-28-2022 Telephone encounter Avis Powell [facility] [place] Start: 12-26-2022 End: 12-26-2022 ambulatory Avis Prince Other [employer] Other Start: 12-26-2022 Telephone encounter Avis Powell [facility] [place] Start: 12-20-2022 End: 12-20-2022 ambulatory Avis Prince Other [employer] Other Start: 12-20-2022 Telephone encounter Avis Powell [facility] [place] Start: 11-21-2022 End: 11-21-2022 ambulatory Avis Prince Other [employer] Other Start: 11-21-2022 Telephone encounter Avis Powell [facility] [place] Start: 08-25-2022 End: 08-25-[address] DOCTOR HERNANDEZ Facility: Start: 07-19-2022 End: 07-19-2022 ambulatory Jimi Chou Other [employer] Other Start: 07-19-2022 Office outpatient vi sit 15 minutes Jimi Chou [facility] [place] Start: 07-05-2022 End: 07-05-2022 ambulatory Avis Prince Other [employer] Other Start: 07-05-2022 Telephone encounter Avis Powell [facility] [place] Start: 06-26-2022 End: 06-26-2022 ambulatory Jimi Chou Other [employer] Other Start: 06-26-2022 Office outpatient vi sit 15 minutes Jimi Chou [facility] [place] Start: 06-08-2022 End: 06-08-2022 ambulatory Avis Prince Other [employer] Other Start: 06-08-2022 Telephone encounter Avis Suresh [facility] [place] Start: 05-26-2022 End: 05-26-2022 ambulatory Jimi Chou Other [employer] Other Start: 05-26-2022 Office outpatient vi sit 15 minutes Jimi Chou [facility] [place] Start: 05-24-2022 End: 05-24-2022 ambulatory Jimi Chou Other [employer] Other Start: 05-24-2022 Telephone encounter Jimi Chou [facility] [place] Start: 04-20-2022 End: 04-20-2022 ambulatory Avis Suresh Other [employer] Other Start: 04-20-2022 Office outpatient vi sit 15 minutes Avisfranky Prince [facility] [place] Start: 03-22-2022 End: 03-22-[address] CAPRICE PATEL . Facility: Start: 02-02-2022 End: 02-02-2022 ambulatory Avis Prince Other [employer] Other Start: 02-02-2022 Telephone encounter Avis Prince [facility] [place] Start: 01-24-2022 End: 01-24-2022 ambulatory Avis Prince Other [employer] Other Start: 01-24-2022 Telephone encounter Avis Prince [facility] [place] Start: 01-19-2022 End: 01-19-2022 ambulatory Avis Prince Other [employer] Other Start: 01-19-2022 Encounter for genera l adult medical examination without abnormal findings Avis Prince [facility] [place] Start: 01-19-2022 Periodic preventive med est patient 18-39 yrs Avis Prince [facility] [place] Start: 12-26-2021 End: 12-26-2021 ambulatory Avis Prince Other [employer] Other Start: 12-26-2021 Telephone encounter Avis Powell [facility] [place] Start: 12-01-2021 End: 12-01-2021 ambulatory Avis Prince Other [employer] Other Start: 12-01-2021 Telephone encounter Avis Powell [facility] [place] Start: 11-21-2021 End: 11-21-2021 ambulatory Avis Prince Other [employer] Other Start: 11-21-2021 Telephone encounter Avis Powell [facility] [place] Start: 11-18-2021 End: 11-18-2021 ambulatory AVIS PRINCE [employer] Other Start: 11-18-2021 Telephone encounter Avis Powell [facility] [place] Start: 11-17-2021 End: 11-17-2021 ambulatory Avis Prince Other [employer] Other Start: 11-17-2021 Office outpatient vi sit 15 minutes Avis Prince [facility] [place] Start: 11-16-2021 End: 11-16-2021 ambulatory Avis Prince Other [employer] Other Start: 11-16-2021 Telephone encounter Avis Powell [facility] [place] Start: 11-08-2021 End: 11-08-2021 ambulatory Avis Prince Other [employer] Other Start: 11-08-2021 Telephone encounter Avis Powell [facility] [place] Start: 10-20-2021 End: 10-20-2021 ambulatory Avis Prince Other [employer] Other Start: 10-20-2021 Telephone encounter Avis Prince [facility] [place] Start: 10-19-2021 End: 10-19-2021 ambulatory Avis Prince Other [employer] Other Start: 10-19-2021 Office outpatient vi sit 25 minutes Avis Prince [facility] [place] Start: 07-27-2021 End: 07-27-2021 ambulatory Avis Prince Other [employer] Other Start: 07-27-2021 Office outpatient vi sit 15 minutes Avis Prince [facility] [place] Start: 06-15-2021 End: 06-15-2021 ambulatory Avis Prince Other [employer] Other Start: 06-15-2021 Telephone encounter Avis Prince [facility] [place] Start: 05-16-2021 End: 05-16-2021 ambulatory Avis Prince Other [employer] Other Start: 05-16-2021 Telephone encounter Avis Powell [facility] [place] Start: 05-05-2021 (COVID TEST) COVID TEST Avis Wynn er [facility] [place] Start: 05-05-2021 End: 05-05-2021 ambulatory Avis Prince Other [employer] Other Start: 05-05-2021 Telephone encounter Avis Prince [facility] [place] Start: 05-03-2021 End: 05-03-2021 ambulatory Avis Prince Other [employer] Other Start: 05-03-2021 Telephone encounter Avis Powell [facility] [place] Start: 04-27-2021 End: 04-27-2021 ambulatory Avis Prince Other [employer] Other Start: 04-27-2021 Telephone encounter Avis Powell [facility] [place] Start: 04-11-2021 Office outpatient vi sit 15 minutes Avis Prince [facility] [place] Start: 03-31-2021 Office outpatient vi sit 15 minutes Avis rPince [facility] [place] Start: 01-12-2021 End: 2021 ambulatory JOVANNI OSUNA Facility:[facility] Procedures Date Procedure Procedure Detail Performing Clinician Start: 05-02-2023 Mammography Liyah SCHAEFFER Work Phone: Start: 04-18-2023 Microscopic observat ion [Identifier] in Cervix by Cyto stain Liyah SCHAEFFER Work Phone: Plan of Treatment Date Care Activity Detail Author Start: 04-18-2028 Screening for malign ant neoplasm of cervix [facility] Start: 08-25-2025 End: 08-25-2025 Patient encounter procedure 08/25/2025 10:00 AM EDT Office Visit [facility] [address] [place] [id number] Liyah López PA [address] [place] [address] [facility] Start: 08-19-2024 End: 10-19-2025 MG Breast - bilateral Screening Bilateral screening mammogram Imaging Routine Encounter for screening mammogram for malignant neoplasm of breast Expected: 08/19/2024 (Approximate), Expires: 10/19/2025 [facility] Work Phone: Comment on above: Expected: 08/19/2024 (Approximate), Expires: 10/19/2025 Start: 08-19-2024 End: 08-19-2024 Patient encounter procedure 08/19/2024 9:00 AM EST Office Visit [facility] [address] [place] [address] Liyah López PA [address] [place] [address] Arrived [facility] Comment on above: Arrived Start: 05-02-2024 Screening for malign ant neoplasm of breast Mammogram [facility] Start: 03-19-2024 Patient referral [facility] Work Phone: Start: 02-17-2024 Influenza vaccination Influenza Vacc ine (#1) [facility] Comprehensive metabo lic 2000 panel - Serum or Plasma [facility] Patient referral [facility] Work Phone: THIN PREP TIS PAP AN D HR HPV DNA THIN PREP TIS PAP AND HR HPV DNA Pathology and Cytology Routine Well woman exam with routine gynecological exam Ordered: 08/19/2024 [facility] Comment on above: Ordered: 08/19/2024 [facility] Immunizations Immunization Date Immunization Notes Care Provider Fa cility 10-07-2020 COVID-19 mRNA, Comirnaty (Pfizer) Avis Prince DO Work Phone: [facility] 09-16-2020 COVID-19 mRNA, Comirnaty (Pfizer) Avis Prince DO Work Phone: [facility] 12-10-2019 Human rabies vaccine from Chicken fibroblast culture [facility] 12-10-2019 rabies immune globulin [facility] 12-10-2019 tetanus toxoid, reduced diphtheria toxoid, and acellular pertussis vaccine, adsorbed [facility] 09-18-2018 Kenalog -40 mg Avis hernandez Other [facility] [employer] Other 02-10-2017 Toradol per 15 mg Avis Sue dmer Other [facility] [employer] Other 10-03-2016 KENALOG - 10 mg Avis Wynn er Other [employer] Other Payers Date Payer Category Payer Self-pay [id number] 2024 Private Health Insurance [facility] [id number] 2024 Private Health Insurance [id number] 2023 Unknown [id number] 1983 Unknown [id number] [id number]. 2.647 1983 Unknown [id number] [id number]. 2.593 1983 Unknown [id number] 2.840.1.149655.3.579. 2.593 1983 Unknown [id number] [id number]. 2.593 1983 Unknown [id number] [id number]. 2.1259 1983 Unknown [id number] [id number]. 2.1259 1983 Unknown [id number] [id number]. 2.1259 1983 Unknown [id number] [id number]. 2.1259 1983 Unknown [id number] [id number]. 2.1259 1959 Unknown [id number] 1959 Unknown [id number] [id number] Private Health Insurance [facility] [id number] Unknown [id number] Unknown [id number]. 2.531 Worker's Compensation [employer] [id number] Social History Date Type Detail Facility Unknown if ever smoked [employer] Other Start: 10-22-2023 Sex Assigned At [employer] Other Start: 08-13-2018 Tobacco smoking status [facility] Smoker (finding) [facility] Start: 1985 Sex Assigned At Female [facility] Start: 03-19-2024 End: 03-19-2024 Tobacco smoking status MAIS Current some day smoker [facility] Start: 07-10-2024 End: 11-17-2024 Sex Female (finding) [facility] Start: 10-22-2023 Tobacco smoking status [facility] Smokes tobacco daily [facility] History of tobacco use Cigarette Smoker [facility] Start: 10-22-2023 Cigarettes smoked current (pack per day) - Reported 0.5 [facility] Start: 10-22-2023 End: 08-19-2024 Alcoholic beverage intake Ex-drinker (finding) [facility] Start: 04-04-2023 Alcohol Comment caffeine: 3-4 cups per day [facility] Start: 11-13-2022 Gender identity Identifies as female gender (finding) [facility] Start: 11-13-2022 Sexual orientation Asexual [facility] Clinical Notes 03-31-2021 to 08-19-2024 MAKSIM Hall - 08/19/2024 9:00 AM EST Note Date & Type Note Facility 08-19-2024 History of Present illness Narrative Reason for Appointment: Patient ID: Brianna Sams is a 39 y.o. female who presents for Well Women Visit Patient presents today for Annual Exam. MEDICATIONS Current Outpatient Medications Medication Instructions aspirin 81 mg, Oral, Daily RT busPIRone (Buspar) 15 MG tablet busPIRone (BUSPAR) 30 mg, Oral, 2 times daily chlorhexidine (Peridex) 0.12 % solution RINSE 1/2 OZ TWICE DAILY AFTER BREAKFAST AND BEFORE BEDTIME. SPIT DO NOT SWALLOW DULoxetine (Cymbalta) [address] capsule DULoxetine (CYMBALTA) 20 mg, Oral, 2 times daily, Do not crush or chew. galcanezumab (Emgality) 120 MG/ML auto-injector Subcutaneous galcanezumab (Emgality) 120 MG/ML auto-injector Emgality methylPREDNISolone (Medrol Dospak) 4 MG tablets As directed metoprolol tartrate (LOPRESSOR) 25 mg, Oral, Once omeprazole (PRILOSEC) 40 mg, Oral, Daily before breakfast Rimegepant Sulfate (Nurtec) 75 MG tablet dispersible Nurtec tiZANidine (ZANAFLEX) 4 mg, Oral, Nightly PRN tiZANidine (ZANAFLEX) 4 mg, Oral, 3 times daily topiramate (TOPAMAX) 150 mg, Oral, 2 times daily ALLERGIES Allergies Allergen Reactions Diltiazem Hives PROBLEMS Active Ambulatory Problems Diagnosis Date Noted No Active Ambulatory Problems Resolved Ambulatory Problems Diagnosis Date Noted No Resolved Ambulatory Problems Past Medical History: Diagnosis Date Anxiety Atrial flutter (CMS/HCC) BBB (bundle branch block) Breast mass 10/01/23 History of supraventricular tachycardia HTN (hypertension) (CMS/HCC) Migraine (CMS/HCC) PONV (postoperative nausea and vomiting) HISTORY PAST MEDICAL HISTORY SOCIAL HISTORY Past Medical History: Diagnosis Date Anxiety Atrial flutter (CMS/HCC) cardiac ablation BBB (bundle branch block) Breast mass 10/01/23 History of supraventricular tachycardia HTN (hypertension) (CMS/HCC) Migraine (CMS/HCC) PONV (postoperative nausea and vomiting) Social History Tobacco Use Smoking status: Every Day Current packs/day: 0.50 Average packs/day: 0.5 packs/day for 15.0 years (7.5 ttl pk-yrs) Types: Cigarettes Smokeless tobacco: Not on file Substance Use Topics Alcohol use: Not Currently Comment: caffeine: 3-4 cups per day Drug use: Not Currently FAMILY HISTORY Family History Problem Relation Name Age of Onset Diabetes Mother Anne Hypertension Mother Anne Hypertension Father Olman Diabetes Father Olman No Known Problems Sister No Known Problems Brother No Known Problems Son SURGICAL HISTORY Past Surgical History: Procedure Laterality Date CARDIAC ELECTROPHYSIOLOGY MAPPING AND ABLATION 12/18/2022 CARDIAC ELECTROPHYSIOLOGY STUDY AND ABLATION [employer] 2020 CHOLECYSTECTOMY 2016 HYSTERECTOMY [place] LAP,CHOLECYSTECTOMY 2016 REVIEW OF SYSTEMS Review of Systems: Review of Systems Constitutional: Negative. HENT: Negative. Eyes: Negative. Respiratory: Negative. Cardiovascular: Negative. Gastrointestinal: Negative. Genitourinary: Negative. Musculoskeletal: Negative. Skin: Negative. Neurological: Negative. All other systems reviewed and are negative. Hematological: Negative. Endocrine: Negative. Allergic/Immunologic: Negative. OBJECTIVE Objective: Physical Exam Constitutional: Appearance: Normal appearance. She is well-developed and normal weight. Genitourinary: Vulva normal. HENT: Head: Normocephalic. Cardiovascular: Rate and Rhythm: Normal rate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 Care Teams (unrecognized sec tion and content) Team Status: Active Member Role Status Dates Avis Prince , DO Primary Care Provider Active Team Status: Active Member Role Status Dates Avis Prince , DO Primary Care Provider Active Start: August 19, 2024 Liyah López PA-C Attending Provider Active Start : August 19, 2024 Team Status: Inactive Member Role Status Dates Avis Prince DO Primary Care Provider Active Start: November 17, 2024 End: November 17, 2024 Te Fuller DO Attending Provider Active S tart: November 17, 2024 End: November 17, 2024 Team Status: Active Member Role Status Dates Avis Prince DO Primary Care Provider Active Team Status: Inactive Member Role Status Dates Avis Prince DO Primary Care Provi immanuel, Attending Provider Active Start: January 07, 2024 End: January 07, 2024 Team Status: Inactive Member Role Status Dates Avis Prince DO Primary Care Provider Active Start: March 19, 2024 End: March 19, 2024 Jimi Chou APRN Attending Provider Active Start: March 19, 2024 End: March 19, 2024 Team Status: Active Member Role Status Dates Avis Prince DO Primary Care Provider Active Start: October 10, 2023 JOSIANE Cardozo Attending Provider Active Start: October 10, 2023 Team Status: Inactive Member Role Status Dates Avis Prince DO Primary Care Provider Active Start: November 05, 2023 End: November 05, 2023 Jimi Chou APRN Attending Provider Active Start: November 05, 2023 End: November 05, 2023 Team Status: Inactive Member Role Status Dates Avis Prince DO Primary Care Provider Active Start: May 24, 2024 End: May 24, 2024 [facility] Attending Provider Active Sta rt: May 24, 2024 End: May 24, 2024 Team Status: Inactive Member Role Status Dates Avis Prince DO Primary Care Provi immanuel, Attending Provider Active Start: July 10, 2024 End: July 10, 2024 Note Keeper Relationship Specialty Start Date End Date Avis Prince MD [address] [place] [address] PCP - General Family Medicine 11/20/22 Note Keeper Relationship Specialty Start Date End Date Avis Prince MD [address] [place] [address] PCP - General Family Medicine 11/20/22 Team Status: Active Member Role Status Dates Avis Prince DO Primary Care Provider Active Start: August 19, 2024 Liyah López PA-C Attending Provider Active Start : August 19, 2024 Team Status: Inactive Member Role Status Dates Avis Prince DO Primary Care Provider Active Start: November 17, 2024 End: November 17, 2024 Te Fuller DO Attending Provider Active S tart: November 17, 2024 End: November 17, 2024 Goals (unrecognized section and content) Goals may be documented in a n alternate section FOR RECORDS PERTAINING TO PATIENTS WHO ARE OR HAVE BEEN ENROLLED IN A CHEMICAL DEPENDENCY/SUBSTANCEABUSE PROGRAM, SOME INFORMATION MAY BE OMITTED. This clinical summary was aggregated from multiple sources. Caution should be exercised in using it in the provision of clinical care. This summary normalizes information from multiple sources, and as a consequence, information in this document may materially change the coding, format and clinical context of patient data. In addition, data may be omitted in some cases. CLINICAL DECISIONS SHOULD BE BASED ON THE PRIMARY CLINICAL RECORDS. [facility] [employer] [facility]. provides no warranty or guarantee of the accuracy or completeness of information in this document.
== END 2024-12-17 18:16 | disposition home or self-care (01) ==
PROVIDERS: Visit Provider Nurse Practitioner Family
DX: M79.89 Other specified soft tissue disorders (principal); M79.604 Pain in right leg; M79.605 Pain in left leg
CPT/HCPCS: 93970

== ENCOUNTER 2024-12-23 08:51 | Outpatient (OUT) | payer OTHER, SELFPAY ==
--- OUTSIDE RECORDS SUMMARY | 2024-12-16 09:45 | XMS_ITS ---
Author Name Auto Generated Organization OHIP Care Team Providers Care Station Engineer Chief Name Role Phone JOVANNI OSUNA Attending Unavailable MOHAN BOLAND Attending Unavailable GUZMAN LÓPEZ Attending Unavailable Community, Outreach Attending Unavailable Community, Outreach Admitting Unavailable Melyssa, Gil Torre Primary Care Unavailable PROBLEMS DATE TYPE CONDITION / CODE ATTENDING STATUS [facility] 12/16/2024 Admitting Diagnosis Other specified soft tissue disorders / M79.89(ICD-10) MOHAN BOLAND Active [facility] 12/16/2024 Admitting Diagnosis Pain in right leg / M79.604(ICD-10) MOHAN BOLAND Active [facility] 12/16/2024 Admitting Diagnosis Pain in left leg / M79.605(ICD-10) MOHAN BOLAND Active [facility] 05/27/2024 Admitting Diagnosis Palpitations / R00.2(ICD-10) JOVANNI OSUNA Active [facility] PROCEDURES No Procedure Records Found RESULTS 36 Observed: 12/18/2024 3:19 PM Status: COMPLETED Source: [facility] Regarding B/L LE venous dupl ex performed on 12/17/2024: Mohan Boland, URBANO Isaac MA Please let her know there is no DVT. Thanks LM on VM. PROGRESS Observed: 12/16/2024 9:40 AM Status: COMPLETED Source: [facility] Cardiovascular Medicine [facility] SUBJECTIVE Chief Complaint Patient presents with Atrial Flutter Edema Cong Castellano is a 39 y.o. female here for [...] what look like atrial flutter despite having past atrial flutter ablation. In the past her atrial flutter ablation CTI block was not able to be confirmed. 08/2022 per sapna higgins HPI: Cong Castellano is a 39 y.o. year old with past medical history of palpitations, SVT s/p loop implant 12/[address] Osuna. She is here for follow-up regarding right event alert below from 07/09/22. she states she has not had any increase in symptoms but occasionally has palpitations which she has been tolerating. she does not recall anything from [...] other associated symptoms. She does not want to pursue any intervention at this time. She denies chest pain, syncope, lightheadedness, dizziness, MAST Red event alert 07/09/2211/[address] Osuna: Ms Castellano is a 35yr old lady with prior [...] as taken out by Dr peña at [facility]. 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 She wakes up at 4am and so long RP at 4; 30am is likely sinus [...] kg (206 lb) SpO2 97% BMI 37.68 kg/m??? OB Status Hysterectomy Smoking Status Every Day BSA 2.02 m??? Medications: Current Outpatient Medications: aspirin 81 mg [...] 1 tablet daily if needed for leg swelling). - Vascular US lower [...] up in about 6 months (around 06/18/2025). Mohan Boland CNP [facility] Cardiovascular Medicine PROGRESS Observed: 12/16/2024 9:40 AM Status: COMPLETED Source: [facility] Patient is here today for a 6 [...] for dyspnea on exertion and leg swelling. OFFICE VISIT Observed: 12/16/2024 9:40 AM Status: COMPLETED Source: [facility] [id number] Cong Castellano 1984 F Date Provider Department Center 12/16/2024 FranklynMOHAN BOLAND [facility]EN [facility] Family History Problem Relation Age of Onset COPD Father Family Status - Relation Status Age at Mother Alive Father Level of Service:09288 MO OFFICE/OUTPATIENT ESTABLISHED LOW MDM 20 MIN Reason for Visit and Comments: Atrial Flutter [101] Edema [[id number]] OFFICE VISIT Observed: 05/27/2024 2:00 PM Status: COMPLETED Source: [facility] [id number] Cong Castellano 1984 F Date Provider Department Center 05/27/2024 Donny-DONTRELL, JOVANNI ARLEEN [facility] No family history on file Level of Service:85345 MO OFFICE/OUTPATIENT ESTABLISHED LOW MDM 20 MIN PROGRESS Observed: 05/27/2024 2:00 PM Status: COMPLETED Source: [facility] Electrophysiology Consult Note Reason for visit: follow-up regarding loop and palpitations, s/p flutter ablation 01/01/23 with confirmed block 05/27/24 FATHER recently , she was having [...] what look like atrial flutter despite having past atrial flutter ablation. In the past her atrial flutter ablation CTI block was not able to be confirmed. 08/2022 per sapna higgins HPI: Cong Castellano is a 39 y.o. year old with past medical history of palpitations, SVT s/p loop implant 12/[address] Osuna. She is here for follow-up regarding right event alert below from 07/09/22. she states she has not had any increase in symptoms but occasionally has palpitations which she has been tolerating. she does not recall anything from [...] other associated symptoms. She does not want to pursue any intervention at this time. She denies chest pain, syncope, lightheadedness, dizziness, MAST Red event alert 07/09/2211/[address] Osuna: Ms Castellano is a 35yr old lady with prior [...] as taken out by Dr peña at [facility]. 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 She wakes up at 4am and so long RP at 4; 30am is likely sinus tachycardia. ------ PMH: Past Medical History: Diagnosis Date Arrhythmia Atrial fibrillation (CMS/HCC) Hypertension SVT (supraventricular tachycardia) (CMS/HCC) PSH: Past Surgical History: Procedure Laterality Date ABLATION OF DYSRHYTHMIC FOCUS CHOLECYSTECTOMY HYSTERECTOMY REPLACEMENT TOTAL KNEE ONCOLOGIC SHOULDER SURGERY SH: Social Determinants of Health Tobacco Use: High Risk (11/07/2023) Patient History Smoking Tobacco Use: Every Day Smokeless Tobacco Use: Never Passive Exposure: Not on file Alcohol Use: Not on file Financial Resource Strain: Not on file Food Insecurity: Not on file Transportation Needs: Not on file Physical Activity: Not on file Stress: Not on file Social Connections: Not on file Intimate Partner Violence: Unknown (08/09/2023) [place] Safety & Environment Fear of Current or Ex-Partner: Not on file Emotionally Abused: Not on file Physically Abused: Not on file Sexually Abused: Not on file Physically or Sexually Abused: Not on file Depression: Not on file Housing Stability: Not on file Utilities: Not on file Health Literacy: Not on file Allergies: Allergies Allergen Reactions Diltiazem Hives Diltiazem Hcl Hives Weight: 93.9kg Visit Vitals BP 119/80 Pulse 74 Wt 93.9 kg (207 lb) SpO2 99% BMI 37.86 kg/m??? OB Status Hysterectomy Smoking Status Every Day BSA 2.03 m??? Meds: Current Outpatient Medications on File Prior to Visit Medication Sig Dispense Refill aspirin 81 mg EC tablet Take 81 mg by mouth in the morning. DULoxetine (Cymbalta) [address] capsule duloxetine 20 mg capsule,delayed release metoprolol tartrate (Lopressor) 25 mg tablet TAKE 1 TABLET BY MOUTH IF NEEDED FOR HEART RATE GREATER THAN 100 BPM 90 tablet 0 omeprazole (PriLOSEC) [address] capsule Take 40 mg by mouth before breakfast. Do not crush or chew. rimegepant (Nurtec ODT) 75 mg tablet,disintegrating Nurtec ODT 75 mg disintegrating tablet tiZANidine (Zanaflex) 4 mg tablet tizanidine 4 mg tablet topiramate (Topamax) 100 mg tablet topiramate 100 mg tablet TAKE 1 AND 1/2 TABLETS BY MOUTH TWICE DAILY No current facility-administered medications on file prior to visit. ROS: Review of Systems Cardiovascular: Positive for irregular heartbeat and palpitations. Physical Exam: Constitutional General Appearance: well-nourished, well-developed, appears stated age Level of Distress: comfortable Psychiatric Mental Status: alert, normal affect Orientation: oriented to time, place, and person Insight: good judgement Eyes Lids and Conjunctivae: non-injected, no xanthelasma ENMT Ears: no lesions on external ear Nose: no lesions on external nose Oropharynx: no cyanosis, no pallor Neck Neck: supple, trachea midline Carotid Arteries: bilateral normal upstroke, no bruits Jugular Veins: normal jugular venous pressure Thyroid: not enlarged Lungs Respiratory Effort: unlabored Chest Exam: normal curvature, no thoracic deformity Auscultation: clear, no wheezing, no rales, no rhonchi Cardiovascular Rate And Rhythm: regular Heart Sounds: normal S1, normal s2, no gallop Systolic Murmur: not heard Diastolic Murmur: not heard Extremities: no cyanosis, no edema, no peripheral signs of emboli Peripheral Pulses Radial Pulse: normal Abdomen Inspection and Palpation: soft, non distended, no bruit, non tender Musculoskeletal Inspection: no joint swelling Neurologic Gait: normal gait Skin Inspection and Palpation: warm and dry Nails: no clubbing Labs: 08/25/2022 labs reviewed, no concerns EKG: No results found for this or any previous visit (from the past 4464 hour(s)). Echo: 05/2021 Stress test: 05/2021 Coronary angiogram: @CATH@ Electrophysiology: 01/01/23 EP study AHms 66 HVms 65 VERPms 600/250, VA conduction - @600ms, + @800ms AV Wenkebach ms 350 AH jump ms NA AVNERP ms 600/270 AERP ms 600/260 SPECIMEN REMOVED: None IMPRESSION: 1. EP study with and no inducible VT 2. No inducible tachycardia 3. Reablation of CTI to establish bidirectional block. 02/2010 flutter ablation Assessment and Plan: Hypertension Hypertension is stable SVT / loop -s/p confrimed flutter ablation 01/01/23 / EP study with no inducible tachycardia -loop shows 1 short episodes of tachycardia 04/16/23 - likely atrial tachycardia No further tachy on LOOP. No data now since it is non functional. Will consider loop removal Patient with a Jovanni Osuna MD Cardiac Electrophysiology [facility] CBC WITHOUT DIFFERENTIAL Collected: 05/24/2024 8:15 A M Status: F Source: [facility] TYPE CODE TESTS RESULT OUT OF RANGE REFERENCE UNITS LAB WBC White Blood Count 7.7 Normal 3.8-11.6 10*3/uL LAB RBC Red Blood Count 4.60 Normal 3.60-5.00 10*6/u L LAB HGB Hemoglobin 13.9 Normal 11.8-15.4 g/dL LAB HCT Hematocrit 41.5 Normal 34.0-46.4 % LAB MCV Mean Corpuscular Volume 90.2 Normal 80-100 fL LAB MCH Mean Corpuscular Hemoglobin 30.2 Normal 24.7-34.3 pg LAB MCHC Mean Corpuscular HGB Conc 33.5 Normal 32.0-35.0 g/dL LAB RDW Red Cell Distribution Width 13.0 Normal 11.9-15.3 % LAB PLT Platelet Count 268 Normal 150-450 10*3/uL LAB MPV Mean Platelet Volume 8.2 Normal 6.3-10.7 fL Result Comment: PERFORMED BY : [place] [address] PATHOLOGIST BRAKE LINER ARTURO BURDICK M.D. Performed By: #### CBCNOOUTR EACH, OUTREACH CMP, OUTREACH LIPID, OUTREACH GLYCO #### [facility] [address] CMP OUTREACH Collected: 05/24/2024 8:15 AM Status: F Source: [facility] TYPE CODE TESTS RESULT OUT OF RANGE REFERENCE UNITS LAB GLU Glucose 123 High 70-100 mg/dL Result Comment: Random Gluco se Reference Range is dependent on time and content of last meal. Glucose of more than 200 mg/dL in a nonstressed, ambulatory subject supports the diagnosis of Diabetes Mellitus. ADA recommended reference range LAB BUN Blood Urea Nitrogen 9 Normal 7-25 mg/d L LAB CREATT Creatinine 0.71 Normal 0.60-1.20 mg/dL LAB GFReNR Estimated GFR >60.0 mL/Min LAB NA Sodium 140 Normal 136-145 mmol/L LAB K Potassium 3.9 Normal 3.5-5.1 mmol/L LAB CL Chloride 111 High 98-107 mmol/L LAB CO2 Carbon Dioxide 23.6 Normal 21.0-31.0 mmol/L LAB GAP Anion Gap 9.3 Normal 6.0-15.0 meq/L LAB CA Calcium 8.8 Normal 8.6-10.3 mg/dL LAB TP Total Protein 6.5 Normal 6.4-8.9 g/dL LAB ALB Albumin Level 4.1 Normal 3.5-5.7 g/dL LAB BILIT Bilirubin,Total 0.5 Normal 0.3-1.0 mg/dL LAB AST Aspartate Amino Transferase 9 Low 13-39 U/L LAB ALT Alanine Aminotransferase 7 Normal 7-52 U/L LAB ALP Alkaline Phosphatase 83 Normal 34-104 U/L Performed By: #### CBCNOOUTR EACH, OUTREACH CMP, OUTREACH LIPID, OUTREACH GLYCO #### [facility] [address] LIPID PROFILE OUTREACH Collected: 05/24/2024 8:15 AM Status: F Source: [facility] TYPE CODE TESTS RESULT OUT OF RANGE REFERENCE UNITS LAB CHOL Cholesterol 140 Normal 140-200 mg/dL Result Comment: Chol less th an 200 mg/dl low risk Chol 201-239 mg/dl borderline risk Chol 240 mg/dl and greater high risk LAB HDL HDL Cholesterol 38 Normal 23-92 mg/dL Result Comment: HDL CHOL ATP -III CLASSIFICATION Cardiovascular Risk HDL > or equal to 60 mg/dL LOW HDL < 40 mg/dL HIGH LAB TRIG W REFEBS Triglyceride w/Reflex 69 Normal 0-149 mg/dL Result Comment: TRIG ATP III CLASSIFICATION TRIG less than 150 mg/dL Normal TRIG 150-199 mg/dL Borderline high TRIG 200-500 mg/dL High TRIG greater than 500 mg/dL Very high Standard traceable to the Center for Disease Conrtrol and Prevention (CDC) test method. LAB LDLC LDL Cholesterol,Calc ulated 88 Normal 0-100 mg/dL Result Comment: LDL ATP III CLASSIFICATION LDL less than 100 mg/dL Optimal LDL 100-129 mg/dL Near or above optimal LDL 130-159 mg/dL Borderline high LDL 160-189 mg/dL High LDL greater than 189 mg/dL Very high LAB VLDL VLDL CHOLESTEROL 13 mg/dL LAB CHLHDL Chol/HDL Ratio 3.7 <5.0 Result Comment: PERFORMED BY : [place] [id number] PATHOLOGIST BRAKE LINER ARTURO BURDICK M.D. Performed By: #### CBCNOOUTR EACH, OUTREACH CMP, OUTREACH LIPID, OUTREACH GLYCO #### [facility] [address] [place] [address] [facility] OUTREACH GLYCO Collected: 05/24/2024 8:15 AM Status: F Source: [facility] TYPE CODE TESTS RESULT OUT OF RANGE REFERENCE UNITS LAB OUTREACH.A1C Hemoglobin A1C Outreach 5.5 Normal 4.3-5.6 % Result Comment: Increased ri sk for diabetes: 5.7 - 6.4 diabetes: >6.4 glycemic control for adults with diabetes: <7.0 LAB eAG Estimated Average Glucose 111 mg/dL Result Comment: PERFORMED BY : [address] [address] PATHOLOGIST BRAKE LINER ARTURO BURDICK M.D. Performed By: #### CBCNOOUTR EACH, OUTREACH CMP, OUTREACH LIPID, OUTREACH GLYCO #### [facility] [address] [place] [address] [facility] ALLERGIES DATE TYPE / CODE NAME / CODE REACTION SEVERITY SOURCE 03/19/2024 Drug Allergy/1139692 02(SNOMED CT) diltiazem/[id number] (RXNORM) Hives Unknown [facility] 06/05/2014 DRUG INGREDI/9345738 03(SNOMED CT) DILTIAZEM Hives High [facility] 06/05/2014 DRUG INGREDI/7844521 03(SNOMED CT) DILTIAZEM HCL Hives High [facility] ENCOUNTERS ADMIT/DISCHARGE ACCOUNT NUMBER ADMITTING ENCOUNTER CLASS LOCATION SOURCE 12/16/2024/12/17/19 [id number] Ambulatory Building:[facility] 08/19/2024/08/20/19 [id number] Ambulatory Building:[facility] 05/27/2024/05/27/20 24 [id number] Ambulatory Building:[facility] 05/24/2024/05/24/20 24 [id number] Community, Outreach [facility] PAYERS ENCOUNTER GUARANTOR PAYER SUBSCRIBER SOURCE 12/16/2024 Primary Insurance:ANDREWS HEALTHCAREPolicy Number: [id number] Date:2024-04-18 CONG Andrews WEBBDOB: [id number] [address] [place] [address] [facility] 08/19/2024 CONG A WEBBDOB: [id number] [place] [address]Uvi: (HP) Primary Insurance:ANDREWS HEALTHCAREPolicy Number: [id number] Date:2024-04-18 CONG Andrews WEBBDOB: [id number] [address] [place] [address] [facility] 05/27/2024 Primary Insurance:ANDREWS HEALTHCAREPolicy Number: [id number] Date:2024-04-18 CONG Andrews WEBBDOB: [id number] [address] [place] [address] [facility] 05/24/2024 Cong A [id number] [place] [address]Lzl: (HP) Primary Insurance:Self PayPolicy Number: Effective Date:2024-05-21 [facility]
== END 2024-12-23 08:52 | disposition home or self-care (01) ==
LOC: US 08:52
PROVIDERS: Visit Provider Nurse Practitioner Family
DX: M79.89 Other specified soft tissue disorders (principal); M79.604 Pain in right leg; M79.605 Pain in left leg
CPT/HCPCS: 93970

== ENCOUNTER 2025-04-24 15:13 | Emergency (ER) | payer OTHER, SELFPAY ==
[2025-04-24 15:17] VITALS: BP 138/78; PULSE 88; TEMP 36.9; O2SAT 97; BMI 35.8
[2025-04-24 15:19] VITALS: O2SAT 96
--- NOTE | 2025-04-24 15:27 | ECG_ITS ---
[facility] Test Date: 2025-04-24 Pat Name: CONG CASTELLANO Department: Room: - Gender: Female Marketing And Communications Officer: : 1985 Requested By: [id number] Order Number: [id number] Reading MD: QUEENIE JON Measurements Intervals Jennings Rate: 85 P: 52 AL: 144 QRS: 50 QRSD: 102 T: 60 QT: 374 QTc: 417 Interpretive Statements 1100 Sinus rhythm 9110 normal ECG Compared to ECG 08/25/2022 16:12:30 Incomplete right bundle-branch block no longer present Electronically Signed On 04-24-2025 16:38:36 EST by QUEENIE JON
[2025-04-24 15:29] VITALS: O2SAT 97
[2025-04-24 15:30] VITALS: PULSE 82; O2SAT 99
[2025-04-24 15:40] VITALS: PULSE 76; O2SAT 96
--- OUTSIDE RECORDS SUMMARY | 2025-04-24 15:46 | XMS_ITS | Clinical Summary ---
Author Organization [facility] Address [address] [place] [address] Care Team Providers Care Health Coordinator Name Role Phone Gil Ragsdale MD Primary Care Provider [phone] Allergies Active AllergyReactionsCriticalityNoted IaffOuunksmrZoaooywqdIdlywVqgg81/19/2014 Medications MedicationSigDispense QuantityRefillsLast FilledStart DateEnd DateStatus DULoxetine (Cymbalta) [address] capsule Take 20 mg by mouth in the morning and 20 mg before bedtime. Do not crush or chew. .Active topiramate (Topamax) 100 MG tablet Take 150 mg by mouth in the morning and 150 mg before bedtime.Active metoprolol tartrate (Lopressor) 25 MG tablet Take 25 mg by mouth 1 (one) time.Active Rimegepant Sulfate (Nurtec) 75 MG tablet dispersible NurtecActive omeprazole (PriLOSEC) [address] capsule Take 40 mg by mouth in the morning. Take before meals.Active busPIRone (Buspar) 15 MG tablet Active aspirin 81 MG EC tablet Take 81 mg by mouth in the morning.Active tiZANidine (Zanaflex) 4 MG tablet Take 4 mg by mouth as needed at bedtimeActive Family History Medical HistoryRelationNameCommentsNo Known ProblemsBrotherDiabetesFatherTimothy HypertensionFatherTimothyDiabetesMotherKathyHypertensionMotherKathyNo Known ProblemsSisterNo Known UlpwddsvKbcBkcuhtjdLnmjBycvxoQmbpgsedRiilsby6Njisyx JxwlikfSxruwSckgrqYkqidEegreOogcxo2WrcBspew Social History Tobacco UseTypesPacks/DayYears UsedDateSmoking Tobacco: Every DayCigarettes0.515 Alcohol UseStandard Drinks/WeekCommentsNot Currently0 (1 standard drink = 0.6 oz pure alcohol)caffeine: 3-4 cups per dayCommentsNoSex and Gender InformationValueDate RecordedSex Assigned at CgrbjBmivqz10/29/2023 2:32 PM EDT Legal NqdZfolle84/15/2023 7:18 PM EDTGender IfphbjplOdmmii64/29/2023 2:32 PM EDT Sexual EjrvaxfwyyyBhavguf91/29/2023 2:32 PM EDT Last Filed Vital Signs Vital SignReadingTime TakenCommentsBlood Fkrittax812/8203 9:14 AM EST Kadle531710/22/2023 1:27 PM PVNPvoblyvyqwi48.1 ??C (97 ??F)10/22/2023 1:27 PM EDT Respiratory Koyb0547 1:27 PM EDTOxygen Ldvpgxbmlh05%10/22/2023 1:27 PM EDTInhaled Oxygen Concentration--Cfpxsf90.8 kg (206 lb 12.8 oz)08/19/2024 9:14 AM AVEZfwcil365 cm (5' 3 )10/22/2023 1:27 PM EDTBody Mass Index36.6305 1:27 PM EDT Plan of Treatment DateTypeDepartmentCare Team (Latest Contact Info)Ludxfsuwdsy15/10/2026 10:00 AM EDTOffice Visit [facility] [address] [place] [address] Liyah Galindo PA [address] [place], [place] [id number] Insurance Care Teams Team MemberRelationshipSpecialtyStart DateEnd Date Gil Ragsdale MD [facility]
--- OUTSIDE RECORDS SUMMARY | 2025-04-24 15:46 | XMS_ITS | Encounter Summary ---
Author Organization [facility] Address [address] [address] Care Team Providers Care Automation Architect Name Role Phone Gil Ragsdale MD Primary Care Provider [phone] Encounter Details DateTypeDepartmentCare Team (Latest Contact Info)Avtdynawmzu95/07/2025Telephone [facility] [address] [place] [address] Becki Thomason MA Social History Tobacco UseTypesPacks/DayYears UsedDateSmoking Tobacco: Every DayCigarettes Smokeless Tobacco: Never Comments:Vape 5 times per da y Alcohol UseStandard Drinks/WeekCommentsNot Currently0 (1 standard drink = 0.6 oz pure alcohol)[place] Safety & EnvironmentAnswerDate RecordedFear of Current or Ex-PartnerNot on file08/09/2023Emotionally AbusedNot on file08/09/2023hysically AbusedNot on file08/09/2023Sexually AbusedNot on file08/09/2023hysically or Sexually AbusedNot on file08/09/2023CommentsNoSex and Gender Information ValueDate RecordedSex Assigned at BirthNot on fileLegal ZdtYcgbdp85/29/2022 10:14 PM EDTGender IdentityNot on fileSexual OrientationNot on filedocumented as of this encounter Plan of Treatment Not on file documented as of this encounter Visit Diagnoses Not on filedocumented in this encounter Care Teams Team MemberRelationshipSpecialtyStart DateEnd Date Gil Ragsdale MD DIV OF PM&R PCP - Yhvlpua87/18/22documented as of this encounter
--- OUTSIDE RECORDS SUMMARY | 2025-04-24 15:46 | XMS_ITS | Encounter Summary ---
Author Organization [facility] Address [address] [place] [address] Care Team Providers Care Community Education Specialist Name Role Phone Avis Ragsdale MD Primary Care Provider [phone] Encounter Details DateTypeDepartmentCare Team (Latest Contact Info)Hvyhkmflxai39/22/2024Clinisync Result Encounter [facility] External Department Unsolicited Akshat Ritchie DO Social History Tobacco UseTypesPacks/DayYears UsedDateSmoking Tobacco: Every DayCigarettes0.515 Alcohol UseStandard Drinks/WeekCommentsNot Currently0 (1 standard drink = 0.6 oz pure alcohol)caffeine: 3-4 cups per dayCommentsUnknownSex and Gender InformationValueDate RecordedSex Assigned at PomoyEztkst04/29/2023 2:32 PM EDT Legal AebSnihsk95/15/2023 7:18 PM EDTGender AczqqgulPbewfa69/29/2023 2:32 PM EDT Sexual ObysoyqtbjoZkbgrgg68/29/2023 2:32 PM EDTdocumented as of this encounter Plan of Treatment DateTypeDepartmentCare Team (Latest Contact Info)Ngkmitecame84/10/2026 10:00 AM EDTOffice Visit [facility] [place] [facility] [address] [place] [address] Liyah Galindo PA [address] [facility] [address] [place], [place] [address] documented as of this encounter Procedures Procedure NamePriorityDate/TimeAssociated DiagnosisCommentsMM TOMOSYNTHESIS DIAGNOSTIC RT11/07/2023 10:27 AM EDT documented in this encounter Results * MM TOMOSYNTHESIS DIAGNOSTIC RT (11/07/2023 10:27 AM EDT)Anatomical Region LateralityModalityOtherSpecimen (Source)Anatomical Location / Laterality Collection Method / VolumeCollection TimeReceived Time11/07/2023 10:27 AM EDT Narrative 11/07/2023 10:28 AM EDT [facility] ?[address] ? [employer], [place] [address] ? Mammography Report ? Signed ? Patient: CASTELLANO,CONG A ?MR#: [id number] ?? : 1985 ?Acct:[id number] ?? Age/Sex: 38 / F ?ADM Date: 11/07/23 ?? Loc: MAMMO ? Attending Dr: Akshat Ritchie D.O. ? Ordering Physician: Akshat Ritchie D.O. ?Results: ? Date of Service: 11/07/23 ?Follow Up: ? Procedure(s): MM tomosynthesis diagnostic RT ?? Accession Number(s): [id number] ? cc: Akshat Ritchie D.O.; AVIS RAGSDALE ? Patient Name: ? CONG CASTELLANO ? MR#: [id number] ? : 1985 ? Exam Date: 11/07/2023 ?? Ordering Doctor: Akshat Ritchie ? RADIOLOGY REPORT ? PROCEDURE: ? MM TOMOSYNTHESIS DIAGNOSTIC RT, 11/07/2023, 09:39 ?? US BREAST RT LIMITED, 11/07/2023, 10:04 ? COMPARISON: ? US BREAST RT LIMITED, 11/07/2023. ??US BREAST RT LIMITED, ?? 05/02/2023. ??MM POST BIOPSY RT, 05/17/2023. ? INDICATIONS: ? History Of Breast Biopsy Z98.890, History Of Breast Mass ? Calculator Name ? NCI Breast Cancer Risk Assessment Tool ?? 5 Year Breast Cancer Risk ? 1.10% ?? Lifetime Breast Cancer Risk ? 11.80% ?? Personal Breast Cancer ?No ?? Personal Ovarian Cancer ? No ?? Treatments ? None ?? Family Cancers ? Grandmother-paternal with breast cancer at age 42; Mother ?? with ovarian cancer at age ??38. ? LOCATION: ? [facility] ? BREAST COMPOSITION: ? There are scattered areas of fibroglandular density. ? FINDINGS: ? DIAGNOSTIC CATEGORY 2--BENIGN FINDING: ? Two triangle markers in the right breast indicate palpable abnormalities. ??No ?? mammographic abnormality is observed. ? Ultrasound demonstrates at 4 o'clock position decrease in size the previously ?? biopsied lesion now measuring 8.5 x 6.4 x 6.1 mm. ??Additionally identified at ?? the 4 o'clock position is a micro clip marker with collagen plug. ? No linear abnormality to correspond to the patient's palpable abnormality ?? observed by ultrasound. ??Further evaluation should be based on clinical exam. ? RECOMMENDATIONS: ? ROUTINE MAMMOGRAM AND CLINICAL EVALUATION IN 12 MONTHS. ? PLEASE NOTE: ??A NORMAL MAMMOGRAM DOES NOT EXCLUDE THE POSSIBILITY OF BREAST ?? CANCER. ??A CLINICALLY SUSPICIOUS PALPABLE LUMP SHOULD BE BIOPSIED. ? Dictated by: Mauro Lund MD on 11/07/2023 at 10:23 ? Approved by: Mauro Lund MD on 11/07/2023 at 10:27 ? Dictated By: ?Mauro Lund M.D. ? Signed By: ?11/07/23 1028 ? DD/ 1027 ? TD/TT: ? Tailer In: Procedure Note Radiology, Radiologist, - 11/07/2023 The [place] [id number] Mammography Report Signed Patient: CONG CASTELLANO AMR#: [id number] : 1985Acct:[id number] Age/Sex: 38 / FADM Date: 11/07/23 Loc: MAMMO Attending Dr: Akshat Ritchie D.O. Ordering Physician: Akshat Ritchie D.O.Results: Date of Service: 11/07/23Follow Up: Procedure(s): MM tomosynthesis diagnostic RT Accession Number(s): [id number] cc: Akshat Ritchie D.O.; AVIS RAGSDALE Patient Name: CONG CASTELLANO MR#: [id number] : 1985 Exam Date: 11/07/2023 Ordering Doctor: [...] ovarian cancer at age 36. LOCATION: [facility] BREAST COMPOSITION: There are scattered areas of [...] M.D. Signed By:11/07/23 1028 DD/ 1027 TD/TT: Tailer In: Authorizing ProviderResult TypeResult StatusKynoel Ritchie DOCLINISYNC IMAGING Final Result documented in this encounter Visit Diagnoses Not on filedocumented in this encounter Care Teams Team MemberRelationshipSpecialtyStart DateEnd Date Avis Ragsdale MD PCP - GeneralFamily Medicine11/20/22documented as of this encounter
--- OUTSIDE RECORDS SUMMARY | 2025-04-24 15:46 | XMS_ITS | Encounter Summary ---
Author Organization [facility] Address [address] [place] [address] Care Team Providers Care Electronics Repair Technician Name Role Phone Gil Ragsdale MD Primary Care Provider [phone] Encounter Details DateTypeDepartmentCare Team (Latest Contact Info)Qfybezfjgzg67/13/2023linisync Result Encounter [facility] External Department Unsolicited Tayo Cota DO [address] [place] [address] Social History Tobacco UseTypesPacks/DayYears UsedDateSmoking Tobacco: Every DayCigarettes Alcohol UseStandard Drinks/WeekCommentsNever0 (1 standard drink = 0.6 oz pure alcohol)caffeine: 3-4 cups per dayCommentsUnknownSex and Gender InformationValueDate RecordedSex Assigned at HrbuwYebndi30/29/2023 2:32 PM EDT Legal BqfEwlbam47/15/2023 7:18 PM EDTGender KshpsbmrHlndno94/29/2023 2:32 PM EDT Sexual WsxokwhxmqoXcjlpkb17/29/2023 2:32 PM EDTCOVID-19 ExposureResponseDate RecordedIn the last 10 days, have you been in contact with someone who was confirmed or suspected to have Coronavirus/COVID-19?No / Vjhfnb9605/25/2023 7:35 AM ESTdocumented as of this encounter Plan of Treatment DateTypeDepartmentCare Team (Latest Contact Info)Vkjghrydpxj00/10/2026 10:00 AM EDTOffice Visit [facility] [address] [place] [address] Liyah Galindo PA [address] [place] [address] [place] [address] documented as of this encounter Procedures Procedure NamePriorityDate/TimeAssociated DiagnosisCommentsMAMMO POST BIOPSY RIGHT05/30/2023 3:54 PM EST documented in this encounter Results * MAMMO POST BIOPSY RIGHT (05/30/2023 3:54 PM EST)Anatomical RegionLaterality ModalityOtherSpecimen (Source)Anatomical Location / LateralityCollection Method / VolumeCollection TimeReceived Time05/30/2023 3:54 PM EST Narrative 05/30/2023 3:55 PM EST [facility] ?[address] ? [place], [place] [address] ? Mammography Report ? Signed ? Patient: CASTELLANO,CONG A ?MR#: [id number] ?? : 1985 ?Acct:[id number] ?? Age/Sex: 38 / F ?ADM Date: 05/17/23 ?? Loc: US ? Attending Dr: Tayo Cota D.O. ? Ordering Physician: Tayo Cota D.O. ?Results: ? Date of Service: 05/17/23 ?Follow Up: ? Procedure(s): MM post biopsy RT ?? Accession Number(s): [id number] ? cc: Tayo Cota D.O.; Physician,Non-Staff MKeithD. ? Patient Name: ? CONG CASTELLANO ? MR#: [id number] ? : 1985 ? Exam Date: 05/17/2023 ?? Ordering Doctor: DR Tayo Cota . ? This report includes an Addendum and supersedes previous reports for this ?? exam. ? RADIOLOGY REPORT ? PROCEDURE: ? MM POST BIOPSY RT ? COMPARISON: ? MM TOMOSYNTHESIS DIAGNOSTIC BI, 05/02/2023. ??MG MAMM SCREEN ?? SHANTI W CAD, 08/21/2019. ??MG MAMM RT DIAG W CAD, 06/08/2017. ??MG MAMM RT DIAG W ?? CAD, 12/07/2016. ? INDICATIONS: ? Abnormal ultrasound, post biopsy ? BREAST COMPOSITION: ? Scattered areas fibroglandular density. ? FINDINGS: ? BIOPSY MARKER: ? A metallic marker has been placed in the targeted location ?? within the posterior lower inner quadrant of the right breast. ?? BREAST FINDINGS: ?Expected post biopsy findings. ? RECOMMENDATIONS: ? Dictated by: Manuel Carpenter M.D. on 05/18/2023 at 13:40 ? Approved by: Manuel Carpenter M.D. on 05/18/2023 at 13:49 ? ADDENDUM: ?? Final pathologic diagnosis: ??Mature adipose tissue. ? FINDINGS: ? DIAGNOSTIC CATEGORY 3--PROBABLY BENIGN FINDING. ??THE FOLLOWING FINDING(S) HAS ?? A HIGH PROBABILITY OF A BENIGN ETIOLOGY: ? RECOMMENDATIONS: ? SHORT TERM FOLLOW-UP DIAGNOSTIC MAMMOGRAM RIGHT BREAST IN 6 MONTHS. ? Dictated by: Manuel Carpenter M.D. on 05/30/2023 at 15:51 ? Approved by: Manuel Carpenter M.D. on 05/30/2023 at 15:54 ? Dictated By: ?Manuel Carpenter M.D. ? Signed By: ?// 1555 ? DD/DT: 05/30/ 1554 ? TD/TT: ? Digital Content Marketing Manager: Procedure Note Radiology, Radiologist, MD - 08/22/2023 [facility] [place] [id number] Mammography Report Signed Patient: CONG CASTELLANO AMR#: [id number] : 1985Acct:[id number] Age/Sex: 38 / FADM Date: 05/17/23 Loc: US Attending Dr: Tayo Cota D.O. Ordering Physician: Tayo Cota D.O.Results: Date of Service: 05/17/23Follow Up: Procedure(s): MM post biopsy RT Accession Number(s): [id number] cc: Tayo Cota D.O.; Physician,Non-Staff Mike Patient Name: CONG CASTELLANO MR#: [id number] : 1985 Exam Date: 05/17/2023 Ordering Doctor: [...] M.D. Signed By:05/30/23 1555 DD/ 1554 TD/TT: Digital Content Marketing Manager: Authorizing ProviderResult TypeResult StatusCorey Cipriano DOCLINISYNC IMAGINGFinal Result documented in this encounter Visit Diagnoses Not on filedocumented in this encounter Care Teams Team MemberRelationshipSpecialtyStart DateEnd Date Gil Ragsdale MD PCP - GeneralFamily Medicine11/20/22documented as of this encounter
--- OUTSIDE RECORDS SUMMARY | 2025-04-24 15:46 | XMS_ITS | Encounter Summary ---
Author Organization [facility] Address [address] [place] [address] Care Team Providers Care Gypsum Block Setter Name Role Phone Gil Ragsdale MD Primary Care Provider [phone] Encounter Details DateTypeDepartmentCare Team (Latest Contact Info)Hfwailmhzjc79/30/2023Clinisync Result Encounter [facility] External Department Unsolicited Reid Cota DO [address] [place] [address] Social History Tobacco UseTypesPacks/DayYears UsedDateSmoking Tobacco: Every DayCigarettes Alcohol UseStandard Drinks/WeekCommentsNever0 (1 standard drink = 0.6 oz pure alcohol)caffeine: 3-4 cups per dayCommentsUnknownSex and Gender InformationValueDate RecordedSex Assigned at ImtwjFwozcx55/29/2023 2:32 PM EDT Legal AsqDgdpcp99/15/2023 7:18 PM EDTGender BwvcjqpbYqqitc90/29/2023 2:32 PM EDT Sexual QkweaolhqxiKonfund60/29/2023 2:32 PM EDTCOVID-19 ExposureResponseDate RecordedIn the last 10 days, have you been in contact with someone who was confirmed or suspected to have Coronavirus/COVID-19?No / Qjaeio1905/25/2023 7:35 AM ESTdocumented as of this encounter Plan of Treatment DateTypeDepartmentCare Team (Latest Contact Info)Ktkujblmamb29/10/2026 10:00 AM EDTOffice Visit [facility] [address] [place] [address] Liyah Galindo PA [address] [place] [address] [place] [address] documented as of this encounter Procedures Procedure NamePriorityDate/TimeAssociated DiagnosisCommentsUS VAC ASST BX BREAST RT W CLIP05/17/2023 1:59 PM EST documented in this encounter Results * US VAC ASST BX BREAST RT W CLIP (05/17/2023 1:59 PM EST)Anatomical Region LateralityModalityRadiographic ImagingSpecimen (Source)Anatomical Location / LateralityCollection Method / VolumeCollection TimeReceived Time05/17/2023 1:59 PM EST Narrative 01/08/2024 10:45 AM EDT [facility] ?[address] ? [place], [place] [address] ? Ultrasound Report ? Signed with Addenda ? Patient: CASTELLANO,CONG A ?MR#: [id number] ?? : 1985 ?Acct:[id number] ?? Age/Sex: 38 / F ?ADM Date: 05/17/23 ?? Loc: US ? Attending Dr: Reid Cota D.O. ? Ordering Physician: Reid Cota D.O. ?? Date of Service: 05/17/23 ?? Procedure(s): US breast vac bx w/ clip RT ?? Accession Number(s): [id number] ? cc: Reid Cota D.O.; Physician,Non-Staff M.D. ?ADDENDUM ? [facility] ? [address] ? [place] [address] ? Patient Name: ?? CONG A CASTELLANO ? MRN: [facility]:[id number] ? date: 1985 ?Sex: F ?? Assigned Patient Location: US ?? Current Patient Location: US ?? Accession/Order Number: [id number] ?? Exam Date: 05/17/2023 ??12:35 ?Report Date: 05/25/2023 ??02:23 ? At the request of: ?? REID ??CIPRIANO ? Procedure: ??US breast vac bx w/ clip RT ? Begin Addendum #1 ? COLLECTED DATE/TIME: 05/17/2023 13:36 EST ? Final Diagnosis ?? Report for [facility] [place] ? RIGHT BREAST 4 O'CLOCK MASS, BIOPSY: ?? -MATURE ADIPOSE TISSUE ONLY, SEE NOTE. ? NOTE: Multiple levels were examined. Definite breast epithelium is not seen. ?? Microcalcification is not seen. Clinical correlation is suggested to determine ? if the targeted mass is adequately sampled. Intradepartmental consultation was ? obtained with diagnostic concurrence by Dr. Darryl Barrientos. ? 05/24/[address] Cota. Verified with Ernie that report was present in ?? office. ? Original Report ?? EXAM: US breast vac bx w/ clip RT ? HISTORY: right breast mass ? COMPARISON: Ultrasound breast right 05/02/2023 ? TECHNIQUE: After obtaining informed consent, ultrasound-guided biopsy was ?? performed in the usual sterile manner. The location of the biopsy was then ?? marked as indicated below. ? FINDINGS: ?? Specimen #, Location: 4 core samples; isoechoic right breast mass for clock ?? position 1. 4 x 0. 9 x 1. 0 cm in size. ?? Biopsy Needle: 13 gauge vacuum core biopsy needle. ?? Marker(s): A single metallic marker was placed in the appropriate targeted ?? location. ?? Medication: Buffered 1% Lidocaine with epinephrine administered locally. ?? Complications: None. ?? Pathology: Pending. ? Addendum Dictated By: ?Manuel Carpenter M.D. ? Addendum Signed By: <Electronically signed by Manuel Carpenter M.D.> ?01/08/24 1045 ?? Addendum Cosigned By: ? DD/ /07/223 ? TD/TT: / ?ADDENDUM ?? US/US breast vac bx w/ clip RT ?? IMPRESSION: ? 1. Uneventful ultrasound-guided breast biopsy. ?? 2. Pathology results are pending. ? An addendum to this report will be provided after pathology results are ?? available. ? Electronically authenticated by: MANUEL ??IVY ?? Date: 05/25/2023 ??02:23 ? Addendum Dictated By: ?Manuel Carpenter M.D. ? Addendum Signed By: <Electronically signed by Manuel Carpenter M.D.> ?01/07/24 1045 ?? Addendum Cosigned By: ? DD/ /07/223 ? TD/TT: / ? [facility] ? [address] ? [place] [address] ? Patient Name: ?? CONG CASTELLANO ? MRN: [facility]:[id number] ? date: 1985 ?Sex: F ?? Assigned Patient Location: US ?? Current Patient Location: US ?? Accession/Order Number: [id number] ?? Exam Date: 05/17/2023 ??12:35 ?Report Date: 05/17/2023 ??13:59 ? At the request of: ?? REID ??CIPRIANO ? Procedure: ??US breast vac bx w/ clip RT ? EXAM: US breast vac bx w/ clip RT ? HISTORY: right breast mass ? COMPARISON: Ultrasound breast right 05/02/2023 ? TECHNIQUE: After obtaining informed consent, ultrasound-guided biopsy was ?? performed in the usual sterile manner. The location of the biopsy was then ?? marked as indicated below. ? FINDINGS: ?? Specimen #, Location: 4 core samples; isoechoic right breast mass for clock ?? position 1.4 x 0.9 x 1.0 cm in size. ?? Biopsy Needle: 13 gauge vacuum core biopsy needle. ?? Marker(s): A single metallic marker was placed in the appropriate targeted ?? location. ?? Medication: Buffered 1% Lidocaine with epinephrine administered locally. ?? Complications: None. ?? Pathology: Pending. ? US/US breast vac bx w/ clip RT ?? IMPRESSION: ? 1. Uneventful ultrasound-guided breast biopsy. ?? 2. Pathology results are pending. ? An addendum to this report will be provided after pathology results are ?? available. ? Electronically authenticated by: MANUEL ??IVY ?? Date: 05/17/2023 ??13:59 ? Dictated By: ?Manuel Carpenter M.D. ? Signed By: ?05/17/23 1401 ? DD/ 1359 ? TD/TT: ? Auto Radiator Specialist: Procedure Note Radiology, Radiologist, MD - 01/08/[address] [address] Ultrasound Report Signed with Vikki Patient: CONG CASTELLANO AMR#: [id number] : 1985Acct:[id number] Age/Sex: 38 / FADM Date: 05/17/23 Loc: US Attending Dr: Reid Cota D.O. Ordering Physician: Reid Cota D.O. Date of Service: 05/17/23 Procedure(s): US breast vac bx w/ clip RT Accession Number(s): [id number] cc: Reid Cota D.O.; Physician,Non-Staff Mike ADDENDUM The [address] [address] Patient Name: CONG CASTELLANO MRN: [facility]:[id number] date: 1985 Sex: F Assigned Patient Location: US Current Patient Location: US Accession/Order Number: [id number] Exam Date: 05/17/2023 12:35 Report Date: 05/25/2023 02:23 At the request of: REID COTA Procedure: US breast vac bx w/ clip RT Begin Addendum #1 COLLECTED DATE/TIME: 05/17/2023 13:36 EST Final Diagnosis Report for [facility] [place] RIGHT BREAST 4 O'CLOCK MASS, BIOPSY: [...] Addendum Cosigned By: DD/ /07/223 TD/TT: / [place] [id number] Patient Name: CONG CASTELLANO MRN: [facility]:[id number] date: 1985 Sex: F Assigned Patient Location: US Current Patient Location: US Accession/Order Number: [id number] Exam Date: 05/17/2023 12:35 Report Date: 05/17/2023 [...] Manuel Carpenter M.D. Signed By:05/17/23 1401 DD/ 4709 TD/TT: Auto Radiator Specialist: Authorizing ProviderResult TypeResult StatusCorey Cipriano DOIMG XR PROCEDURESFinal Result documented in this encounter Visit Diagnoses Not on filedocumented in this encounter Care Teams Team MemberRelationshipSpecialtyStart DateEnd Date Gil Ragsdale MD PCP - GeneralFamily Medicine11/20/22documented as of this encounter
--- OUTSIDE RECORDS SUMMARY | 2025-04-24 15:46 | XMS_ITS | Encounter Summary ---
Author Organization [facility] Address [address] [place] [address] Care Team Providers Care Operator Weapon Locating Radar Name Role Phone Avis Ragsdale MD Primary Care Provider [phone] Encounter Details DateTypeDepartmentCare Team (Latest Contact Info)Ynigyuontkl08/22/2024Clinisync Result Encounter [facility] External Department Unsolicited Akshat Ritchie DO Social History Tobacco UseTypesPacks/DayYears UsedDateSmoking Tobacco: Every DayCigarettes0.515 Alcohol UseStandard Drinks/WeekCommentsNot Currently0 (1 standard drink = 0.6 oz pure alcohol)caffeine: 3-4 cups per dayCommentsUnknownSex and Gender InformationValueDate RecordedSex Assigned at YafkrZwnhys83/29/2023 2:32 PM EDT Legal ShkTnhdzq69/15/2023 7:18 PM EDTGender JudcmdtyUjfpyp77/29/2023 2:32 PM EDT Sexual MhzrqlgymqzIdkvzyl93/29/2023 2:32 PM EDTdocumented as of this encounter Plan of Treatment DateTypeDemesilla valley hospitalmentCare Team (Latest Contact Info)Aehqwddsbzs09/10/2026 10:00 AM EDTOffice Visit [facility] [place] [facility] [address] [place] [address] Liyah Galindo PA [address] [facility] [address] [place], [place] [id number] documented as of this encounter Procedures Procedure NamePriorityDate/TimeAssociated DiagnosisCommentsBI US BREAST LIMITED RIGHT11/07/2023 10:27 AM EDT documented in this encounter Results * Right breast US limited (11/07/2023 10:27 AM EDT)Anatomical RegionLaterality ModalityBreastRightUltrasoundSpecimen (Source)Anatomical Location / Laterality Collection Method / VolumeCollection TimeReceived Time11/07/2023 10:27 AM EDT Narrative 11/07/2023 10:28 AM EDT [facility] ?[address] ? [place] [address] ? Ultrasound Report ? Signed ? Patient: CASTELLANO,CONG A ?MR#: [id number] ?? : 1985 ?Acct:[id number] ?? Age/Sex: 38 / F ?ADM Date: 11/07/23 ?? Loc: MAMMO ? Attending Dr: Akshat Ritchie D.O. ? Ordering Physician: Akshat Ritchie D.O. ?? Date of Service: 11/07/23 ?? Procedure(s): US breast RT limited ?? Accession Number(s): [id number] ? cc: Akshat Ritchie D.O.; AVIS RAGSDALE ? Patient Name: ? CONG CASTELLANO ? MR#: [id number] ? : 1985 ? Exam Date: 11/07/2023 [...] at age ??36. ? LOCATION: ? [facility] ? BREAST COMPOSITION: ? There are scattered [...] 1028 ? DD/ 1027 ? TD/TT: ? Conveyor Installer: Procedure Note Radiology, Radiologist, - 11/07/2023 [place] [address] Ultrasound Report Signed Patient: CONG CASTELLANO AMR#: [id number] : 1985Acct:[id number] Age/Sex: 38 / FADM Date: 11/07/23 Loc: MAMMO Attending Dr: Akshat Ritchie D.O. Ordering Physician: Akshat Ritchie D.O. Date of Service: 11/07/23 Procedure(s): US breast RT limited Accession Number(s): [id number] cc: Akshat Ritchie D.O.; AVIS RAGSDALE Patient Name: CONG CASTELLANO MR#: [id number] : 1985 Exam Date: 11/07/2023 Ordering Doctor: [...] LOCATION: [facility] BREAST COMPOSITION: There are scattered areas of [...] M.D. Signed By:11/07/23 1028 DD/ 1027 TD/TT: Conveyor Installer: Authorizing ProviderResult TypeResult StatusAkshat Ritchie DOIMG US PROCEDURES Final Result documented in this encounter Visit Diagnoses Not on filedocumented in this encounter Care Teams Team MemberRelationshipSpecialtyStart DateEnd Date Avis Ragsdale MD PCP - GeneralFamily Medicine11/20/22documented as of this encounter
--- OUTSIDE RECORDS SUMMARY | 2025-04-24 15:46 | XMS_ITS | Clinical Summary ---
Author Organization [facility] Address [address], [address] [place] [address] Care Team Providers Care Baby Formula Worker Name Role Phone Gil Ragsdale DO Primary Care Provider [phone] Allergies Active AllergyReactionsCriticalityNoted DateCommentsDiltiazemAnxiety,Hives, Itching,Shortness Of Breath,LgdrqgeiWrab43/19/2014 Medications MedicationSigDispense QuantityRefillsLast FilledStart DateEnd DateStatus aspirin 81 MG EC tablet Take 1 tablet by mouth dailyActive DULoxetine (CYMBALTA) 20 MG extended release capsule Take 1 capsule by mouth dailyActive furosemide (LASIX) 20 MG tablet Take 1 tablet by mouth as ugfynb47ctive topiramate (TOPAMAX) 100 MG tablet Take 1 tablet by mouth dailyActive metoprolol tartrate (LOPRESSOR) 25 MG tablet Take 1 tablet by mouth onceActive omeprazole (PRILOSEC) 40 MG delayed release capsule Take 1 capsule by mouth every morning (before breakfast)Active diphenhydrAMINE (BENADRYL) 25 MG capsule Take 1 capsule by mouth as needed for ItchingActive Active Problems ProblemNoted DateDiagnosed DateVaricose veins of both lower extremities with pain04/01/2025 Encounters DateTypeDepartmentCare YqjkHwlrpfdlcja79/15/2025 9:15 AM EDTOffice Visit [facility] Part of [address] [place] [phone] Onel Daniel MD Varicose veins of bilateral lower extremities with pain (Primary Dx); Varicose veins of both lower extremities with pain03/30/2025Orders Only [facility] Part of [address] [place] [address] ProviderNoah MD 03/19/2025Orders Only [facility] Part of [facility] [address] [place] [address] Faye Boland APRN - MAXIMILIANO from Last 3 Months Family History Medical HistoryRelationNameCommentsvaricose veinsMotherRelationNameStatus CommentsMother Social History Tobacco UseTypesPacks/DayYears UsedDateSmoking Tobacco: Some DaysCigarettes Smokeless Tobacco: Never Tobacco Cessation:Ready to Q uit: Not Asked CommentsUnknownSex and Gender InformationValueDate RecordedSex Assigned at MjqkdOueqpv60/06/2024 4:35 PM EDTLegal FueQvkxep95/06/2024 4:35 PM EDTGender KpcjmgbtLlmdce48/06/2024 4:35 PM EDTSexual TbznrirzqtbPmikmupg02/19/2024 3:38 PM EDT Last Filed Vital Signs Vital SignReadingTime TakenCommentsBlood Ewnnvqbb021/6704/01/2025 9:13 AM EDT Vncfi529204/01/2025 9:13 AM ZEDIqpxswmveja78.9 ??C (96.7 ??F)04/01/2025 9:13 AM EDTRespiratory Sijh4882 9:13 AM EDTOxygen Kkndscenva63%11/05/2023 1:56 PM EDTInhaled Oxygen Concentration--Svbzaw58.9 kg (207 lb)04/01/2025 9:13 AM EDT Ygdznh476 cm (5' 3 )04/01/2025 9:13 AM EDTBody Mass Index36.6704/01/2025 9:13 AM EDT Plan of Treatment DateTypeDepartmentCare Team (Latest Contact Info)Vgejulctvup17/12/2025 10:30 AM ESTOffice Visit [facility] Part of [address] [facility] [place] [phone] Onel Daniel MD [address] [place] [address] Dr [address] [facility] [place] [phone] F/U from 04/01/25Health MaintenanceDue DateLast DoneCommentsDepression Screen 1995Varicella vaccine (1 of 2 - 13+ 2-dose series)01/14/1996HIV screen 1998Hepatitis C ldkkmx0101/13/2001Hepatitis B vaccine (1 of 3 - 19+ 3-dose series)2002Pneumococcal 0-49 years Vaccine (1 of 2 - PCV)2002Pap smear01/14/2004Cervical cancer hadcqm8001/13/2013HPV (without or with Pap) 2013Diabetes pcocfz3801/13/2018Breast cancer djetlr4001/13/2023Lipids 2023Flu vaccine (#1)5COVID-19 Vaccine (3 - 2024- season) 504/, 1DTaP/Tdap/Td vaccine (2 - Td or Tdap)12/09/2029 12/10/2019HPV vaccine (No Doses Required)CompletedHepatitis A vaccineAged OutNo longer eligible based on patient's age to complete this topicHib vaccineAged Out No longer eligible based on patient's age to complete this topicMeningococcal (ACWY) vaccineAged OutNo longer eligible based on patient's age to complete this topicMeningococcal B vaccineAged OutNo longer eligible based on patient's age to complete this topicPolio vaccineAged OutNo longer eligible based on patient's age to complete this topic Procedures Procedure NamePriorityDate/TimeAssociated DiagnosisCommentsAMB REFERRAL TO VASCULAR AEBOGAQFwpkqwf25/02/2025 3:04 PM EDTfrom Last 3 Months Results * Ambulatory referral to Vascular Surgery (03/19/2025 3:04 PM EDT) Narrative Authorizing ProviderResult TypeResult StatusMeljosé manuel Boland INCINERATOR PLANT LABORER - NPOUTPATIENT REFERRAL ORDERABLESFinal Result from Last 3 Months Insurance * Guarantor: Brianna Sams AAccount TypeRelation to PatientDate of BirthPhone Billing AddressPersonal/WhnqhuHjvx82/[id number] [place] [address] Care Teams Team MemberRelationshipSpecialtyStart DateEnd Gil Ragsdale DO [address] [place] [address] PCP - GeneralFamily Medicine11/05/23
--- OUTSIDE RECORDS SUMMARY | 2025-04-24 15:47 | XMS_ITS | Clinical Summary ---
Author Organization [facility] Address [address] [place] [address] Care Team Providers Care Director Organizational Name Role Phone Gil Ragsdale MD Primary Care Provider [phone] Allergies Active AllergyReactionsCriticalityNoted JsgjOabcguzmNzfgvflkdYsdayQdxg76/19/2014 Diltiazem GarCcxnvDgsj18/19/2014 Medications MedicationSigDispense QuantityRefillsLast FilledStart DateEnd DateStatus topiramate (Topamax) 100 mg tablet topiramate 100 mg tablet TAKE 1 AND 1/2 TABLETS BY MOUTH TWICE DAILYActive DULoxetine (Cymbalta) [address] capsule duloxetine 20 mg capsule,delayed releaseActive tiZANidine (Zanaflex) 4 mg tablet tizanidine 4 mg tabletActive omeprazole (PriLOSEC) [address] capsule Take 40 mg by mouth before breakfast. Do not crush or chew.Active metoprolol tartrate (Lopressor) 25 mg tablet Indications:Intermittent palpitationsTAKE 1 TABLET BY MOUTH IF NEEDED FOR HEART RATE GREATER THAN 100 BPM 90 tablet 04/04/2022ctive aspirin 81 mg EC tablet Take 81 mg by mouth in the morning.Active furosemide (Lasix) 20 mg tablet Indications:Leg swellingTake 1 tablet (20 mg) by mouth if needed (take 1 tablet daily if needed for leg swelling). 30 tablet 1107/667259/6Active Active Problems ProblemNoted DateDiagnosed RwjrZcptxew56/27/2024igarette nicotine dependence without qxxynkfkwizr51/27/2024urrent moderate episode of major depressive disorder without prior gbjmfky7502/12/2024Neck muscle nbrrpq8302/12/2024Intermittent npbhwwagzvwb70/18/2022 Assessment & Plan (04/04/2022 4:22 PM EDT): As above SVT (supraventricular tachycardia)04/04/2022 Assessment & Plan (11/07/2023 3:06 PM EDT): Continue metoprolol as needed- pill in the pocket Assessment & Plan (08/30/2022 10:40 PM EDT): -loop showed episodes of an svt which is not new for her and an episode concerning for VT -she does want EP study or any intervention at this time as she states it 'does not feel bad; -I discussed with patient if she is have worsening palpitations to return to clinic -tachy VT noted on loop - it appeared to be more noise and no concerns for a vt at this time Assessment & Plan (04/04/2022 4:21 PM EDT): Pt reports palpitatins and SVT a couple times a week, she stopped taking atenolol r/t hypotension. Therefore will prescribe metoprolol 25 mg po as needed- pill in the pocket for SVT. D/W pt not to take daily r/t hypotension but as needed for tachycardia/symptoms Migraine without aura and without status migrainosus, not bhwyhhvdmvh64/18/2022 Assessment & Plan (04/04/2022 4:22 PM EDT): F/U with PCP and recommended pt to be evaluated by Neurologist/migraine specialist and she states she will d/w PCP Atrial Overview (01/24/2023): ABLATION Y DR DEMPSEY [id number] Assessment & Plan (11/07/2023 3:07 PM EDT): Continue metoprolol as needed No recurrent A fib/flutter noted on loop recorder Elevated blood-pressure reading without diagnosis of ftedmomfsldm91/31/2012 Wlzhwd9811/15/2011Gastroesophageal reflux ocdxtuu7311/15/20118107Jpufmqdn99/30/2012Mood xuilmk5611/15/2011Syncope and rcbwunjq81/30/2012 Assessment & Plan (11/07/2023 3:08 PM EDT): stable Hypertension Assessment & Plan (11/07/2023 3:07 PM EDT): Hypertension is well controlled 118/80 Assessment & Plan (08/30/2022 10:35 PM EDT): Hypertension is stable -does not require any antihypertensives -ct current medications: metoprolol tartrate 25mg prn for palpitations Encounters DateTypeDepartmentCare CwkqPbbnjodcrzc24/07/2025Telephone [facility] [address] [place] [address] Becki Thomason MA 03/19/2025Orders Only [facility] [address] [place] [facility] [place] [address] Shanna Isaac MA Venous insufficiency of both lower extremities (Primary Dx)from Last 3 Months Immunizations ImmunizationAdministration DatesNext DueRabies - IM Fibroblast Dhetiam3112/10/2019 Rabies Immune Cmxjywbt90/24/6166Zugj82/24/2020Unspecified Sars-Cov-2 Vaccination 10/07/2020,09/16/2020 Family History Medical HistoryRelationNameCommentsCOPDFatherRelationNameStatusCommentsFather DeceasedMotherAlive Social History Tobacco UseTypesPacks/DayYears UsedDateSmoking Tobacco: Every DayCigarettes Smokeless Tobacco: Never Tobacco Cessation:Ready to Q uit: Not Asked; Counseling Given: Not Answered Comments:Vape 5 times per day Alcohol UseStandard Drinks/WeekCommentsNot Currently0 (1 standard drink = 0.6 oz pure alcohol)UT Safety & EnvironmentAnswerDate RecordedFear of Current or Ex-PartnerNot on file08/09/2023Emotionally AbusedNot on file08/09/2023hysically AbusedNot on file08/09/2023Sexually AbusedNot on file08/09/2023hysically or Sexually AbusedNot on file08/09/2023CommentsNoSex and Gender Information ValueDate RecordedSex Assigned at BirthNot on fileLegal LjrLxxtdc30/29/2022 10:14 PM EDTGender IdentityNot on fileSexual OrientationNot on file Last Filed Vital Signs Vital SignReadingTime TakenCommentsBlood Cuyepeqy755/8412/16/2024 9:46 AM EDT Zanyk109112/16/2024 9:46 AM EDTTemperature--Respiratory Btms813311/07/2023 2:43 PM EDTOxygen Cpjwyhupeh92%12/16/2024 9:46 AM EDTInhaled Oxygen Concentration-- Lxwrul93.4 kg (206 lb)12/16/2024 9:46 AM CUMQmtqgl120.5 cm (5' 2 )12/16/2024 9:46 AM EDTBody Mass Index37.68012/16/2024 9:46 AM EDT Plan of Treatment Health MaintenanceDue DateLast DoneCommentsDepression Gxpoyoypc70/29/1995 Varicella Vaccines (1 of 2 - 13+ 2-dose series)01/14/1996Hepatitis B Vaccines (1 of 3 - 19+ 3-dose series)2002Pneumococcal Vaccine: Pediatrics (0 to 5 Years) and At-Risk Patients (6 to 64 Years) (1 of 2 - PCV)2002HPV Vaccines (1 - 3-dose SCDM series)2010HPV/Ezathd7901/13/20133244Totfspvjj51/29/2023COVID- 19 Vaccine ( season)5010/07/2020, 10/07/2020, 09/16/2020, Additional history existsInfluenza Vaccine (#1)02/16/2025ervical Cancer Ooraskzir62/04/2028Pap Smear/803/09/2024, 04/18/2023dult Tetanus Zoster Vaccines (1 of 2)2033HIB VaccinesAged OutNo longer eligible based on patient's age to complete this topicIPV VaccinesAged OutNo longer eligible based on patient's age to complete this topicMeningococcal B VaccineAged OutNo longer eligible based on patient's age to complete this topicMeningococcal VaccineAged OutNo longer eligible based on patient's age to complete this topicRotavirus VaccinesAged OutNo longer eligible based on patient's age to complete this topic Medical Devices ImplantedTypeAreaManufacturerDevice IdentifierShelf Expiration DateModel / Serial / [id number] Implanted:01/12/2021 (Quantity not on file)Implantable Loop [id number] / [id number] / [place] [address] Care Teams Team MemberRelationshipSpecialtyStart DateEnd Date Gil Ragsdale MD DIV OF PM&R PCP - Qplojgo50/18/22
--- OUTSIDE RECORDS SUMMARY | 2025-04-24 15:48 | XMS_ITS | CCD ---
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 [Moles/Vol]23.6 mmol/NVehtdp55.0-31.0The [facility] Physician GroupComment on above:Performed By: #### OUTREACH LIPID, CBCNOOUTREACH, OUTREACH GLYCO, OUTREACH CMP #### [facility] [address] [place] [address] USACreatinine [Mass/Vol]0.71 mg/dLNormal0.60-1.20The [facility] Physician GroupComment on above:Performed By: #### OUTREACH LIPID, CBCNOOUTREACH, OUTREACH GLYCO, OUTREACH CMP #### [facility] [address] [place] [address] USAGFR/1.73 sq M.predicted MDRD (S/P/Bld) [Vol rate/Area] mL/min/{1.73_m2}NormalThe [facility] Physician GroupComment on above:Performed By: #### OUTREACH LIPID, CBCNOOUTREACH, OUTREACH GLYCO, OUTREACH CMP #### [facility] [address] [place] [address] USAGlucose [Mass/Vol]123 mg/aTCxsb42-691Yxs [facility] Physician GroupComment on above:Result Comment: Random Glucose Reference Range is dependent on time and content of last meal. Glucose of more than 200 mg/dL in a nonstressed, ambulatory subject supports the diagnosis of Diabetes Mellitus. ADA recommended reference rangePerformed By: #### OUTREACH LIPID, CBCNOOUTREACH, OUTREACH GLYCO, OUTREACH CMP #### [facility] [address] [place] [address] USAPotassium [Moles/Vol]3.9 mmol/LNormal3.5-5.1The [facility] Physician GroupComment on above:Performed By: #### OUTREACH LIPID, CBCNOOUTREACH, OUTREACH GLYCO, OUTREACH CMP #### [facility] [address] [place] [address] USAProtein [Mass/Vol]6.5 g/dLNormal6.4-8.9[facility] Physician GroupComment on above:Performed By: #### OUTREACH LIPID, CBCNOOUTREACH, OUTREACH GLYCO, OUTREACH CMP #### [facility] [address] [place] [id number] USASodium [Moles/Vol]140 mmol/JIehhlx596-376Bcq [facility] Physician GroupComment on above:Performed By: #### OUTREACH LIPID, CBCNOOUTREACH, OUTREACH GLYCO, OUTREACH CMP #### [facility] [address] [place] [id number] USAUrea nitrogen [Mass/Vol]9 mg/dLNormal7-25The [facility] Physician GroupComment on above:Performed By: #### OUTREACH LIPID, CBCNOOUTREACH, OUTREACH GLYCO, OUTREACH CMP #### [facility] [address] [place] [id number] USACalcium [Mass/volume] in Serum or PlasmaOrdered By: OUTREACH COMMUNITY on 14-04-7672Tyioojg [Mass/Vol]Calcium [Mass/volume] in Serum or Plasma8.6-10.3FPaulding County HospitalCarbon dioxide, total [Moles/volume] in Serum or PlasmaOrdered By: OUTREACH COMMUNITY on 18-56-1145WM4 [Moles/Vol]Carbon dioxide, total [Moles/volume] in Serum or Ducaen85.0-31.0 [facility] CenterChloride [Moles/volume] in Serum or Plasma Ordered By: OUTREACH COMMUNITY on 97-41-7446Tnovdbjt [Moles/Vol]Chloride [Moles/volume] in Serum or JutxwyDoaa51-775CtunzvfstOhiohealth Nelsonville Health Center Cholesterol [Mass/volume] in Serum or PlasmaOrdered By: OUTREACH COMMUNITY on 64-52-2050Wkpquxyuohh [Mass/Vol]Cholesterol [Mass/volume] in Serum or Plasma 140-200Ohio[facility] Health CenterComment on above:Chol less than 200 mg/dl low riskChol 201-239 mg/dl borderline riskChol 240 mg/dl and greater high riskCholesterol in HDL [Mass/volume] in Serum or PlasmaOrdered By: OUTREACH COMMUNITY on 21-45-8743Pvbclearngx in HDL [Mass/Vol]Serum or plasma high density lipoprotein (HDL) cholesterol dgdoduardri02-85ContieqffOhiohealth Nelsonville Health Center Comment on above:HDL CHOL ATP-III CLASSIFICATION Cardiovascular RiskHDL > or equal to 60 mg/dL LOWHDL < 40 mg/dL HIGHCholesterol in LDL Calc [Mass/Vol] Ordered By: [facility] on 75-80-4625Huwpycysdqd in LDL [Mass/Vol] Cholesterol in LDL [Mass/volume] in Serum or Plasma by calculation0-100Ohio[facility] Health CenterComment on above:LDL ATP III CLASSIFICATIONLDL less than 100 mg/dL OptimalLDL 100-129 mg/dL Near or above zyaknuxXGN732-784 mg/dL Borderline highLDL 160-189 mg/dL HighLDL greater than 189 mg/dL Very high Cholesterol in VLDL Calc [Mass/Vol]Ordered By: [facility] on 05-24-2024 Cholesterol in VLDL [Mass/Vol]Cholesterol in VLDL [Mass/volume] in Serum or Plasma by calculationOhiohealth Nelsonville Health CenterCreatinine [Mass/volume] in Serum or PlasmaOrdered By: [facility] on 95-58-4596Bqirsgysfq [Mass/Vol]Creatinine [Mass/volume] in Serum or Plasma0.60-1.20[facility] CenterErythrocyte distribution width Auto (RBC) [Ratio]Ordered By: [facility] on 34-84-8984Mogakzxmngt distribution width (RBC) [Ratio] Erythrocyte distribution width [Ratio] by Automated count11.9-15.3FPaulding County HospitalGlucose [Mass/volume] in Serum or PlasmaOrdered By: [facility] on 24-14-9732Zjncshl [Mass/Vol]Glucose [Mass/volume] in Serum or UfytdzIsch28-334SmkqqfelvOhiohealth Nelsonville Health CenterComment on above:ADA recommended reference rangeRandom Glucose Reference Range is dependent on time and content of last meal. Glucose of more than 200 mg/dL in a nonstressed, ambulatory subject supports the diagnosisof Diabetes Mellitus.Hematocrit Auto (Bld) [Volume fraction]Ordered By: [facility] on 51-26-6089Jrxogdxvrb (Bld) [Volume fraction]Hematocrit [Volume Fraction] of Blood by Automated count 34.0-46.4FPaulding County HospitalHemoglobin [Mass/volume] in Blood Ordered By: [facility] on 50-96-4203Icdhphhshq (Bld) [Mass/Vol] Hemoglobin [Mass/volume] in Blood11.8-15.4FPaulding County Hospital Leukocytes [#/volume] corrected for nucleated erythrocytes in Blood by Automated counOrdered By: OUTREACH COMMUNITY on 64-24-1436TXV corrected for nucl RBC Auto (Bld) [#/Vol]Leukocytes [#/volume] corrected for nucleated erythrocytes in Blood by Automated coun3.8-11.6FPaulding County HospitalLipid Profile Outreachon 18-28-0522Ivybxsadybq [Mass/Vol]140 mg/wCUjwaff054-114Llr [facility] Physician GroupComment on above:Result Comment: Chol less than 200 mg/dl low risk Chol 201-239 mg/dl borderline risk Chol 240 mg/dl and greater high riskPerformed By: #### OUTREACH LIPID, CBCNOOUTREACH, OUTREACH GLYCO, OUTREACH CMP #### [facility] [address] [place] [address] USACholesterol in HDL [Mass/Vol]38 mg/gOTdzdkd12-06Cfk [facility] Physician GroupComment on above:Result Comment: HDL CHOL ATP-III CLASSIFICATION Cardiovascular Risk HDL > or equal to 60 mg/dL LOW HDL < 40 mg/dL HIGHPerformed By: #### OUTREACH LIPID, CBCNOOUTREACH, OUTREACH GLYCO, OUTREACH CMP #### [facility] [address] [place] [address] USACholesterol.total/Cholesterol in HDL [Mass ratio]3.7 {ratio}Normal<5.0The [facility] Physician GroupComment on above:Result Comment: PERFORMED BY: [facility] [address] [place] [id number] PATHOLOGIST MEAT TEAM MEMBER ARTURO BURDICK M.D.Performed By: #### OUTREACH LIPID, CBCNOOUTREACH, OUTREACH GLYCO, OUTREACH CMP #### [facility] [address] [place] [address] USALDL Cholesterol,Mebdstlqdz42 mg/dLNormal0-100The [facility] Physician GroupComment on above:Result Comment: LDL ATP III CLASSIFICATION LDL less than 100 mg/dL Optimal LDL 100-129 mg/dL Near or above optimal LDL 130-159 mg/dL Borderline high LDL 160-189 mg/dL High LDL greater than 189 mg/dL Very highPerformed By: #### OUTREACH LIPID, CBCNOOUTREACH, OUTREACH GLYCO, OUTREACH CMP #### [facility] [address] [place] [id number] USATriglyceride w/Rujzdd73 mg/dLNormal0-149The [facility] Physician GroupComment on above:Result Comment: TRIG ATP III CLASSIFICATION TRIG less than 150 mg/dL Normal TRIG 150-199 mg/dL Borderline high TRIG 200-500 mg/dL High TRIG greater than 500 mg/dL Very high Standard traceable to the Center for Disease Conrtrol and Prevention (CDC) test method.Performed By: #### OUTREACH LIPID, CBCNOOUTREACH, OUTREACH GLYCO, OUTREACH CMP #### [facility] [address] [place] [id number] USAVLDL JBMZPEGKGZW31 mg/dLNoNovant Health Rehabilitation Hospital Physician GroupComment on above:Performed By: #### OUTREACH LIPID, CBCNOOUTREACH, OUTREACH GLYCO, OUTREACH CMP #### [facility] [address] [place] [address] [facility] Auto (RBC) [Entitic mass]Ordered By: [facility] on 72-04-4592YHB (RBC) [Entitic mass]MCH [Entitic mass] by Automated count24.7-34.3FUniversity Hospitals Beachwood Medical Center Auto (RBC) [Mass/Vol]Ordered By: [facility] on 46-68-4514OLUN (RBC) [Mass/Vol]MCHC [Mass/volume] by Automated count32.0-35.0[facility] HospitalV Auto (RBC) [Entitic vol]Ordered By: [facility] on 35-48-1853OSP (RBC) [Entitic vol]MCV [Entitic volume] by Automated camea46-057CgozeokmfOhiohealth Nelsonville Health CenterNo Panel InformationOrdered By: [facility] on 09-79-1687Svekswpxr GFR (CKD-EPI)> 60.0 mL/MinOhiohealth Nelsonville Health CenterPharmacy Creatinine Clearance (ChemN/[facility] CenterOutreach Glycoon 05-24-2024 Glucose [Mass/Vol]111 mg/dLNormNCH Healthcare System - North Naples Physician GroupComment on above: Result Comment: PERFORMED BY: [facility] [address] [place] [address] PATHOLOGIST MEAT TEAM MEMBER ARTURO BURDICK M.D.Performed By: #### OUTREACH LIPID, CBCNOOUTREACH, OUTREACH GLYCO, OUTREACH CMP #### [facility] [address] [place] [id number] USAOutreach GlycoOrdered By: OUTREACH COMMUNITY on 05-24-2024 HbA1c (Bld) [Mass fraction]5.5 %4.3-5.6FPaulding County HospitalComment on above:Result Comment: Increased risk for diabetes: 5.7 - 6.4 diabetes: >6.4 glycemic control for adults with diabetes: <7.0Performed By: #### OUTREACH LIPID, CBCNOOUTREACH, OUTREACH GLYCO, OUTREACH CMP #### [facility] [address] [place] [id number] USAIncreased risk for diabetes: 5.7 - 6.4diabetes: >6.4glycemic control for adults with diabetes: <7.0Platelet mean volume Auto (Bld) [Entitic vol]Ordered By: [facility]REACH COMMUNITY on 21-40-4393Nycbiaph mean volume (Bld) [Entitic vol]Platelet mean volume [Entitic volume] in Blood by Automated count6.3-10.7FPaulding County HospitalPlatelets Auto (Bld) [#/Vol]Ordered By: OUTREACH COMMUNITY on 96-42-6218Vdiriojac (Bld) [#/Vol] Platelets [#/volume] in Blood by Automated -619QtfzibkwpOhiohealth Nelsonville Health CenterPotassium [Moles/volume] in Serum or PlasmaOrdered By: OUTREACH COMMUNITY on 87-31-6833Lgxfdtbkt [Moles/Vol]Potassium [Moles/volume] in Serum or Plasma3.5-5.1FPaulding County HospitalProtein [Mass/volume] in Serum or PlasmaOrdered By: OUTREACH COMMUNITY on 69-60-8623Ahgscnb [Mass/Vol]Protein [Mass/volume] in Serum or Plasma6.4-8.9[facility] Health CenterRBC Auto (Bld) [#/Vol]Ordered By: OUTREACH COMMUNITY on 15-03-9100NLW (Bld) [#/Vol] Erythrocytes [#/volume] in Blood by Automated count3.60-5.00St. [facility]'s Medical Centererum or plasma anion gap determinationOrdered By: OUTREACH COMMUNITY on 66-30-0766Xlldq gap [Moles/Vol]Serum or plasma anion gap determination6.0-15.0St. Mary's Medical Centererum or plasma total cholesterol/high density lipoprotein (HDL) cholesterol mass ratOrdered By: OUTREACH COMMUNITY on 74-34-8666Exejxitrvqb.total/Cholesterol in HDL [Mass ratio]Serum or plasma total cholesterol/high density lipoprotein (HDL) cholesterol mass rat<5.0St. Mary's Medical Centerodium [Moles/volume] in Serum or PlasmaOrdered By: OUTREACH COMMUNITY on 94-11-9696Zwtbxv [Moles/Vol] Sodium [Moles/volume] in Serum or Zbrcbv000-342DmlzhiiweOhiohealth Nelsonville Health Center Triglyceride [Mass/volume] in Serum or PlasmaOrdered By: OUTREACH COMMUNITY on 10-68-3729Ngifnaxjnqpk [Mass/Vol]Triglyceride [Mass/volume] in Serum or Plasma 0-149[facility] Health CenterComment on above:TRIG ATP III CLASSIFICATIONTRIG less than 150 mg/dL NormalTRIG 150-199 mg/dL Borderline highTRIG 200-500 mg/dL High TRIG greater than 500 mg/dL Very highStandard traceable to the Center for Disease Conrtrol and Prevention (CDC) test method. Urea nitrogen [Mass/volume] in Serum or PlasmaOrdered By: OUTREACH COMMUNITY on 79-79-6727Ooqc nitrogen [Mass/Vol]Urea nitrogen [Mass/volume] in Serum or Plasma 7-25Ohio[facility] Health CenterUS VAC ASST BX BREAST RT W CLIPon 46-36-9967[place]mr[place] [address] Ultrasound Report Signed with Addenda Patient: CONG SAMS MR#: [id number] : 1985 Acct:[id number] Age/Sex: 38 / F ADM Date: 05/17/23 Loc: US Attending Dr: Tayo Cota D.O. Ordering Physician: Tayo Cota D.O. Date of Service: 05/17/23 Procedure(s): US breast vac bx w/ clip RT Accession Number(s): [id number] cc: Tayo Cota D.O.; Physician,Non-Staff Mike ADDENDUM The [address] [address] Patient Name: CONG SAMS MRN: [facility]:[id number] date: 1985 Sex: F Assigned Patient Location: US Current Patient Location: US Accession/Order Number: [id number] Exam Date: 05/17/2023 12:35 Report Date: 05/25/2023 02:23 At the request of: TAYO COTA Procedure: US breast vac bx w/ clip RT Begin Addendum #1 COLLECTED DATE/TIME: 05/17/2023 13:36 EST Final Diagnosis Report for [facility] [place] RIGHT BREAST 4 O'CLOCK MASS, BIOPSY: [...] Complications: None. Pathology: Pending. Addendum Dictated By: Lizet Haynes M.D. Addendum Signed By: 01/08/24 1045 Addendum Cosigned By: DD/ /07/223 TD/TT: / ADDENDUM US/US breast vac bx w/ clip RT IMPRESSION: 1. Uneventful ultrasound-guided breast biopsy. 2. Pathology results are pending. An addendum to this report will be provided after pathology results are available. Electronically authenticated by: LIZET HAYNES Date: 05/25/2023 02:23 Addendum Dictated By: Lizet Haynes M.D. Addendum Signed By: 01/08/24 1045 Addendum Cosigned By: DD/ /07/223 TD/TT: / [place] [id number] Patient Name: CONG SAMS MRN: [facility]:[id number] date: 1985 Sex: F Assigned Patient Location: US Current Patient Location: US Accession/Order Number: [id number] Exam Date: 05/17/2023 12:35 Report Date: 05/17/2023 13:59 At the request of: TAYO COTA Procedure: US breast vac bx w/ clip RT EXAM: US breast vac bx w/ clip RT (more content not included)...TBHRadiology, Radiologist, MD - 01/08/2024 [place] [address] Ultrasound Report Signed with Addenda Patient: CONG SAMS MR#: [id number] : 1985 Acct:[id number] Age/Sex: 38 / F ADM Date: 05/17/23 Loc: US Attending Dr: Tayo Cota D.O. Ordering Physician: Tayo Cota D.O. Date of Service: 05/17/23 Procedure(s): US breast vac bx w/ clip RT Accession Number(s): [id number] cc: Tayo Cota D.O.; Physician,Non-Staff MMary ADDENDUM The [place] [id number] Patient Name: CONG SAMS MRN: [facility]:[id number] date: 1985 Sex: F Assigned Patient Location: US Current Patient Location: US Accession/Order Number: [id number] Exam Date: 05/17/2023 12:35 Report Date: 05/25/2023 02:23 At the request of: TAYO COTA Procedure: US breast vac bx w/ clip RT Begin Addendum #1 COLLECTED DATE/TIME: 05/17/2023 13:36 EST Final Diagnosis Report for [facility] [place] RIGHT BREAST 4 O'CLOCK MASS, BIOPSY: [...] Complications: None. Pathology: Pending. Addendum Dictated By: Lizet Haynes M.D. Addendum Signed By: Mike> 01/08/24 1045 Addendum Cosigned By: DD/ /07/223 TD/TT: / ADDENDUM US/US breast vac bx w/ clip RT IMPRESSION: 1. Uneventful ultrasound-guided breast biopsy. 2. Pathology results are pending. An addendum to this report will be provided after pathology results are available. Electronically authenticated by: LIZET HAYNES Date: 05/25/2023 02:23 Addendum Dictated By: Lizet Haynes M.D. Addendum Signed By: Mike> 01/08/24 1045 Addendum Cosigned By: DD/ /07/223 TD/TT: / [address] [address] Patient Name: CONG SAMS MRN: [id number]:[id number] date: 1985 Sex: F Assigned Patient Location: US Current Patient Location: US Accession/Order Number: [id number] Exam Date: 05/17/2023 12:35 Report Date: 05/17/2023 13:59 At the request of: TAYO COTA Procedure: US breast vac bx w/ [...] pathology results are available. Electronically authenticated by: LIZET HAYNES Date: 05/17/2023 13:59 Dictated By: Lizet Haynes M.D. Signed By: 05/17/23 1401 DD/ 1359 TD/TT: Music Sound Light Technician: MARY HERRMANN ASST BX BREAST RT W CLIPOrdered By: Radiologist Radiology on 90-41-9755WOTR [employer] Work Phone: mm TOMOSYNTHESIS DIAGNOSTIC RTon 42-12-8348Cvh[place] [address] Mammography Report Signed Patient: CONG SAMS MR#: [id number] : 1985 Acct:[id number] Age/Sex: 38 / F ADM Date: 11/07/23 Loc: MAMMO Attending Dr: Denise Winters D.O. Ordering Physician: Denise Winters D.O. Results: Date of Service: 11/07/23 Follow Up: Procedure(s): MM tomosynthesis diagnostic RT Accession Number(s): [id number] cc: Denise Winters D.O.; SURESHAVIS Patient Name: CONG SAMS MR#: [id number] : 1985 Exam Date: 11/07/2023 Ordering Doctor: Denise Winters RADIOLOGY REPORT PROCEDURE: MM TOMOSYNTHESIS DIAGNOSTIC RT, [...] ovarian cancer at age 36. LOCATION: The [facility] BREAST COMPOSITION: There are scattered [...] Signed By: 11/07/23 1028 DD/ 1027 TD/TT: Music Sound Light Technician:TBHRadiology, Radiologist, - 11/07/2023 [place] [address] Mammography Report Signed Patient: CONG SAMS MR#: [id number] : 1985 Acct:[id number] Age/Sex: 38 / F ADM Date: 11/07/23 Loc: MAMMO Attending Dr: Denise Winters D.O. Ordering Physician: Denise Winters D.O. Results: Date of Service: 11/07/23 Follow Up: Procedure(s): MM tomosynthesis diagnostic RT Accession Number(s): [id number] cc: Denise Winters D.O.; AVIS PRINCE Patient Name: CONG SAMS MR#: [id number] : 1985 Exam Date: 11/07/2023 Ordering Doctor: Denise Winters RADIOLOGY REPORT PROCEDURE: MM TOMOSYNTHESIS DIAGNOSTIC RT, [...] ovarian cancer at age 36. LOCATION: The [facility] BREAST COMPOSITION: There are scattered [...] Signed By: 11/07/23 1028 DD/ 1027 TD/TT: Music Sound Light Technician: MARY HellerNo Panel InformationOrdered By: Radiologist Radiology on 56-61-9556HAPS [employer] Work Phone: No Panel Informationon 13-35-8998Xefzeenjr Study observation (narrative)MARY [employer] SemiconductorUS Breast - right limitedon 36-67-0930VsiC[place] [address] Ultrasound Report Signed Patient: CONG SAMS MR#: [id number] : 1985 Acct:[id number] Age/Sex: 38 / F ADM Date: 11/07/23 Loc: MAMMO Attending Dr: Denise Winters D.O. Ordering Physician: Denise Winters D.O. Date of Service: 11/07/23 Procedure(s): US breast RT limited Accession Number(s): [id number] cc: Denise Winters D.O.; AVIS PRINCE Patient Name: CONG SAMS MR#: [id number] : 1985 Exam Date: 11/07/2023 Ordering Doctor: Denise Winters RADIOLOGY REPORT PROCEDURE: MM TOMOSYNTHESIS DIAGNOSTIC RT, [...] ovarian cancer at age 36. LOCATION: The [facility] BREAST COMPOSITION: There are scattered [...] Signed By: 11/07/23 1028 DD/ 1027 TD/TT: Music Sound Light Technician:TBHRadiology, RadiologistMD - 11/07/2023 [place] [address] Ultrasound Report Signed Patient: CONG SAMS MR#: [id number] : 1985 Acct:[id number] Age/Sex: 38 / F ADM Date: 11/07/23 Loc: MAMMO Attending Dr: Denise Winters D.O. Ordering Physician: Denise Winters D.O. Date of Service: 11/07/23 Procedure(s): US breast RT limited Accession Number(s): [id number] cc: Denise Winters D.O.; AVIS PRINCE Patient Name: CONG SAMS MR#: [id number] : 1985 Exam Date: 11/07/2023 Ordering Doctor: Denise Winters RADIOLOGY REPORT PROCEDURE: MM TOMOSYNTHESIS DIAGNOSTIC RT, [...] ovarian cancer at age 36. LOCATION: The [facility] BREAST COMPOSITION: There are scattered [...] Signed By: 11/07/23 1028 DD/ 1027 TD/TT: Music Sound Light Technician: MARY [facility] Regional Medical CenterPIERRE CERVICAL SPINE COMPLETE 4-5 VIEWSon 98-82-7693SD CERVICAL SPINE COMPLETE 4-5 VIEWSNormal cervical vertebral body height and alignment. Very mild disc space loss C5-C6. Minimal facetarthropathy. 6 x 8 mm sclerotic rimmed lucency C2 pedicle, nonaggressive, nonacute. No prevertebral soft tissue swelling. No fracture. IMPRESSION: Impression: minimal arthritis, no fracture or significant soft tissue swelling. ELECTRONICALLY SIGNED BY: Kj Rodriguez MDNormalNot AvailableMAMMO POST BIOPSY RIGHTon 34-15-2429ZrjC[place] [address] Mammography Report Signed Patient: CONG SAMS MR#: [id number] : 1985 Acct:[id number] Age/Sex: 38 / F ADM Date: 05/17/23 Loc: US Attending Dr: Tayo Cota D.O. Ordering Physician: Tayo Cota D.O. Results: Date of Service: 05/17/23 Follow Up: Procedure(s): MM post biopsy RT Accession Number(s): [id number] cc: Tayo Cota D.O.; Physician,Non-Staff Mike Patient Name: CONG SAMS MR#: [id number] : 1985 Exam Date: 05/17/2023 Ordering Doctor: [...] Expected post biopsy findings. RECOMMENDATIONS: Dictated by: Lizet Haynes M.D. on 05/18/2023 at 13:40 Approved by: Lizet Haynes M.D. on 05/18/2023 at 13:49 ADDENDUM: Final pathologic diagnosis: Mature adipose tissue. FINDINGS: DIAGNOSTIC CATEGORY 3--PROBABLY BENIGN FINDING. THE FOLLOWING FINDING(S) HAS A HIGH PROBABILITY OF A BENIGN ETIOLOGY: RECOMMENDATIONS: SHORT TERM FOLLOW-UP DIAGNOSTIC MAMMOGRAM RIGHT BREAST IN 6 MONTHS. Dictated by: Lizet Haynes M.D. on 05/30/2023 at 15:51 Approved by: Lizet Haynes M.D. on 05/30/2023 at 15:54 Dictated By: Lizet Haynes M.D. Signed By: 05/30/23 1555 DD/ 1554 TD/TT: Music Sound Light Technician:TBHRadiology, Radiologist, MD - 08/22/2023 [place] [address] Mammography Report Signed Patient: CONG SAMS MR#: [id number] : 1985 Acct:[id number] Age/Sex: 38 / F ADM Date: 05/17/23 Loc: US Attending Dr: Tayo Cota D.O. Ordering Physician: Tayo Cota D.O. Results: Date of Service: 05/17/23 Follow Up: Procedure(s): MM post biopsy RT Accession Number(s): [id number] cc: Tayo Cota D.O.; Physician,Non-Staff Mike Patient Name: CONG SAMS MR#: [id number] : 1985 Exam Date: 05/17/2023 Ordering Doctor: [...] Expected post biopsy findings. RECOMMENDATIONS: Dictated by: Lizet Haynes M.D. on 05/18/2023 at 13:40 Approved by: Lizet Haynes M.D. on 05/18/2023 at 13:49 ADDENDUM: Final pathologic diagnosis: Mature adipose tissue. FINDINGS: DIAGNOSTIC CATEGORY 3--PROBABLY BENIGN FINDING. THE FOLLOWING FINDING(S) HAS A HIGH PROBABILITY OF A BENIGN ETIOLOGY: RECOMMENDATIONS: SHORT TERM FOLLOW-UP DIAGNOSTIC MAMMOGRAM RIGHT BREAST IN 6 MONTHS. Dictated by: Lizet Haynes M.D. on 05/30/2023 at 15:51 Approved by: Lizet Haynes M.D. on 05/30/2023 at 15:54 Dictated By: Lizet Haynes M.D. Signed By: 05/30/23 1555 DD/ 1554 TD/TT: Music Sound Light Technician: [facility] HospitalRadiology Study observation (narrative)[facility] POST BIOPSY RIGHTOrdered By: Radiologist Radiology on 11-06-5316UZOQRay County Memorial Hospital Work Phone: US VAC ASST BX BREAST RT W CLIPon 35-54-1118Lregybnxd Study observation (narrative)[facility] HospitalCBC AUTO DIFFon 66-96-1289CNCF #0.1 103/ulNormal0.0-0.1The [facility] HospitalComment on above:Performed By: #### CBC #### [facility] [facility] [address] [place] [address] Dr. Sharla LucasBasophils/100 WBC (Bld)0.7 %Normal0.2-2.0[facility] Comment on above:Performed By: #### CBC #### [facility] [address] [place] [address] Dr. Sharla Cortez #0.2 103/ulNormal0.0-0.7The [facility] HospitalComment on above: Performed By: #### CBC #### [facility] [address] [place] [address] Dr. Sharla Stoneosinophils/100 WBC (Bld)1.9 %Normal0.9-7.0[facility] Comment on above:Performed By: #### CBC #### [facility] [address] [place] [address] Dr. Sharla Stonerythrocyte distribution width (RBC) [Ratio]12.8 %Piotgu67.0-15.0 The [facility] HospitalComment on above:Performed By: #### CBC #### [facility] [address] [place] [address] Dr. Sharla LucasHematocrit (Bld) [Volume fraction]42.6 %Ndtehp25.0-48.0The [facility] HospitalComment on above:Performed By: #### CBC #### [facility] [address] [place] [address] Dr. Sharla LucasHemoglobin (Bld) [Mass/Vol]14.3 g/kUVoufpe04.0-16.0The [facility] HospitalComment on above:Performed By: #### CBC #### [facility] [address] [place] [address] Dr. Sharla LucasIG #0.03 10e3/ulNormal0.00-0.03The [facility] HospitalComment on above:Performed By: #### CBC #### [facility] [address] [place] [address] Dr. Sharla Houston %0.3 %Normal0.0-0.5The [facility] HospitalComment on above: Performed By: #### CBC #### [facility] [address] [place] [address] Dr. Sharla Miller #2.1 103/ulNormal1.2-3.8The [facility] HospitalComment on above:Performed By: #### CBC #### [facility] [address] [place] [address] Dr. Sharla Desirmphocytes/100 WBC (Bld)22.0 %Sbmsyh07.5-60.0The [facility] HospitalComment on above:Performed By: #### CBC #### [facility] [address] [place] [address] Dr. Sharla FordUAL DIFF REQNONormalThe [facility] HospitalComment on above: Performed By: #### CBC #### [facility] [address] [place] [address] Dr. Sharla Shepherd (RBC) [Entitic mass]29.9 kdMzivad76.7-34.0The [facility] HospitalComment on above:Performed By: #### CBC #### [facility] [address] [place] [address] Dr. Sharla Hart (RBC) [Mass/Vol]33.6 g/dASwjxua31.9-35.2The [facility] HospitalComment on above:Performed By: #### CBC #### [facility] [address] [address] [address] Sharla Hart (RBC) [Entitic vol]89.1 lPCynrab63.0-99.0The [facility] HospitalComment on above:Performed By: #### CBC #### [facility] [address] [place] [address] Dr. Sharla Odonnell #0.7 103/ulNormal0.3-0.8The [facility] HospitalComment on above:Performed By: #### CBC #### [facility] [address] [place] [address] Dr. Sharla Jimenezocytes/100 WBC (Bld)7.3 %Normal1.7-12.0The [facility] Comment on above:Performed By: #### CBC #### [facility] [address] [place] [address] Dr. Sharla Soliz #6.6 103/ulCritically high1.4-6.5The [facility] Comment on above:Performed By: #### CBC #### [facility] [address] [place] [address] Dr. Sharla Montañoutrophils/100 WBC (Bld)67.8 %Vqonso23.0-75.0The [facility] HospitalComment on above:Performed By: #### CBC #### [facility] [address] [place] [address] Dr. Sharla Yadavlet mean volume (Bld) [Entitic vol]9.1 fLCritically low 9.5-13.5The [facility] HospitalComment on above:Performed By: #### CBC #### [facility] [address] [place] [address] Dr. Sharla LucasPLT302 103/icRxvzwo932-248Zyd [facility] HospitalComment on above: Performed By: #### CBC #### [facility] [address] [address] [address] Sharla LucasRBC4.78 106/ulNormal4.20-5.40The [facility] HospitalComment on above:Performed By: #### CBC #### [facility] [address] [place] [address] Dr. Sharla LucasWBC9.7 103/ulNormal4.0-11.0The [facility] HospitalComment on above: Performed By: #### CBC #### [facility] [address] [place] [address] Dr. Sharla SamuelsF 14(COMP METB)on 82-53-4249Ymgteau [Mass/Vol]3.5 g/dLNormal 3.4-5.0The [facility] Hospitalment on above:Performed By: #### CMP, TSH, HSTROPN #### [facility] [address] [place] [address] Dr. Sharla LucasAlbumin/Globulin [Mass ratio]1.0 {ratio}NormalThe [facility] HospitalComment on above:Performed By: #### CMP, TSH, HSTROPN #### [facility] [address] [place] [address] Dr. Sharla Andrade [Catalytic activity/Vol]88 U/PDsnaxs91-889Dwf [facility] Hospitalment on above:Performed By: #### CMP, TSH, HSTROPN #### [facility] [address] [place] [address] Dr. Sharla Trevino [Catalytic activity/Vol]14 U/NNqqyiz09-49Gmn [facility] HospitalComment on above:Performed By: #### CMP, TSH, HSTROPN #### [facility] [address] [place] [address] Dr. Sharla Boothe gap [Moles/Vol]12.7 mmol/LNormalThe [facility] on above:Performed By: #### CMP, TSH, HSTROPN #### [facility] [address] [place] [address] Dr. Sharla Mckenzie [Catalytic activity/Vol]12 U/LCritically lme37-64Vco [facility] HospitalComment on above:Performed By: #### CMP, TSH, HSTROPN #### [facility] [address] [address] [address] Sharla LucasBilirubin [Mass/Vol]0.3 mg/dLNormal0.2-1.0The [facility] Comment on above:Performed By: #### CMP, TSH, HSTROPN #### [facility] [address] [address] [address] Sharla LucasCalcium [Mass/Vol]8.8 mg/dLNormal8.5-10.1The [facility] Comment on above:Performed By: #### CMP, TSH, HSTROPN #### [facility] [address] [place] [address] Dr. Sharla LucasChloride [Moles/Vol]109 mmol/LCritically ggnh18-126YusGreene Memorial Hospitalment on above:Performed By: #### CMP, TSH, HSTROPN #### [facility] [address] [place] [address] Dr. Sharla LucasCO2 [Moles/Vol]25.2 mmol/ECcnuty64.0-32.0[facility] Comment on above:Performed By: #### CMP, TSH, HSTROPN #### [facility] [address] [place] [address] Dr. Sharla LucasCreatinine [Mass/Vol]0.72 mg/dLNormal0.55-1.02[facility] HospitalComment on above:Performed By: #### CMP, TSH, HSTROPN #### [facility] [address] [place] [address] Dr. Sharla StoneGFR-AF ZIMBABWEAN>60Normal>=60The [facility] HospitalComment on above:Performed By: #### CMP, TSH, HSTROPN #### [facility] [address] [place] [address] Dr. Sharla StoneGFR-NON AF ZIMBABWEAN>60Normal>=60The [facility] HospitalComment on above:Performed By: #### CMP, TSH, HSTROPN #### [facility] [address] [address] [address] Sharla LucasGlobulin (S) [Mass/Vol]3.5 g/dLNoUniversity Hospitals Samaritan Medical CenterComment on above:Performed By: #### CMP, TSH, HSTROPN #### [facility] [address] [place] [address] Dr. Sharla LucasGlucose [Mass/Vol]102 mg/oLHfgiqa22-900Rwp [facility] Comment on above:Performed By: #### CMP, TSH, HSTROPN #### [facility] [address] [place] [address] Dr. Sharla LucasPotassium [Moles/Vol]3.9 mmol/LNormal3.5-5.1The [facility] Comment on above:Performed By: #### CMP, TSH, HSTROPN #### [facility] [address] [place] [address] Dr. Sharla LucasProtein [Mass/Vol]7.0 g/dLNormal6.4-8.2The [facility] Comment on above:Performed By: #### CMP, TSH, HSTROPN #### [facility] [address] [place] [address] Dr. Sharla LucasSodium [Moles/Vol]143 mmol/VRyhtot643-130Fql [facility] Comment on above:Performed By: #### CMP, TSH, HSTROPN #### [facility] [address] [place] [address] Dr. Sharla LucasUrea nitrogen [Mass/Vol]7.0 mg/dLNormal7.0-18.0The [facility] HospitalComment on above:Performed By: #### CMP, TSH, HSTROPN #### [facility] [address] [place] [address] Dr. Sharla LucasUrea nitrogen/Creatinine [Mass ratio]9.7 mg/mgNoUniversity Hospitals Samaritan Medical CenterComment on above:Performed By: #### CMP, TSH, HSTROPN #### [facility] [address] [place] [address] Dr. Sharla LucasPROTIMEjossue 89-47-4850LMZ Coag (PPP) [Relative time]{INR}NormalThe [facility] HospitalComment on above:Performed By: #### PT, PTT #### [facility] [address] [place] [address] Dr. Sharla Soares [facility] HospitalComment on above:Result Comment: DESIRED INR: 2.0 - 3.0 CONDITIONS NOT LISTED BELOW 2.5 - 3.5 FOR PROSTHETIC HEART VALVE REPLACEMENT 2.5 - 3.5 RECURRENT THROMBOSIS Performed By: #### PT, PTT #### [facility] [address] [place] [address] Dr. Sharla LucasPT Coag (PPP) [Time]9.8 sNormal9.0-11.6The [facility] Comment on above:Performed By: #### PT, PTT #### [facility] [address] [place] [address] Dr. Sharla Roper 26-51-3389cEOH Coag (Bld) [Time]27.8 zWdhivi76.3-36.2[facility] HospitalComment on above:Performed By: #### PT, PTT #### [facility] [address] [place] [address] Dr. Sharla Gallardo, HIGH SENSITIVITYon 71-38-8721IPJISF<4.2Cwoddr5.0-51.3 The [facility] HospitalComkalamazoo [facility] on above:Result Comment: CUT-OFF POINTS HAVE BEEN ESTABLISHED BASED ON THE FOURTH UNIVERSAL DEFINITIONS OF MYOCARDIAL INFARCTION. THE UPPER REFERENCE LIMIT (URL) OF TROPONIN, DEFINED THE 99TH PERCENTILE OF cTnI DISTRIBUTION IN A REFERENCE POPULATION, HAS BEEN CONFIRMED THE DECISION THRESHOLD FOR VA DIAGNOSIS.Performed By: #### CMP, TSH, HSTROPN #### [facility] [address] [place] [address] Dr. Sharla Pool 51-18-6852QKE1.952 uIU/mLNormal0.358-3.740The [facility] HospitalComment on above:Performed By: #### CMP, TSH, HSTROPN #### [facility] [address] [place] [address] Dr. Sharla LucasXR CHEST 1 Von [id number] CHEST 1 VEXAM: XR CHEST 1 V at 1626 hours HISTORY: CHEST PAIN, UNSPECIFIED COMPARISON: [...] Electronically authenticated by: CEZAR DESAI Date: 2022-08-25 17:10NoUniversity Hospitals Samaritan Medical CenterQuick Strepon 07-19-2022S. pyogenes Org specific cx Ql (Throat) NegativeRedtree People Other [place]EX[place] MDiaq StrepRedtree People Other pap ACOG PANEL 2: 30 to 65on 03-29-2022..NormalThe [facility] HospitalComment on above:Result Comment: Performed at: BAPerformed By: #### [id number] #### [facility] [address] [place] [address] Dr. Sharla Carmichael Gdln ACOG Kqwrncc58-15IvdfjjDmrUniversity Hospitals Samaritan Medical CenterComment on above:Performed By: #### [id number] #### [facility] [address] [place] [address] Dr. Sharla LucasDIAGNOSIS:CommentNoUniversity Hospitals Samaritan Medical CenterComment on above: Result Comment: NEGATIVE FOR INTRAEPITHELIAL LESION OR MALIGNANCY. Performed at: BAPerformed By: #### [id number] #### [facility] [address] [place] [address] Dr. Sharla LucasHPV AptimaNegativeNormalNegativeGenesis HospitalComkalamazoo psychiatric hospital on above:Result Comment: This nucleic acid amplification test detects fourteen high-risk HPV types (16,18,31,33,35,39,45,51,52,56,58,59,66,68) without differentiation. Performed at: =GPerformed By: #### [id number] #### [facility] [address] [place] [address] Dr. Sharla LucasMethodology:CommentMercy Health Urbana Hospital on above: Result Comment: This liquid based ThinPrep(R) pap test was screened with the use of an image guided system. Performed at: WBPerformed By: #### [id number] #### [facility] [address] [place] [address] Dr. Sharla LucasNote:CommentNoDetwiler Memorial Hospital on above:Result Comment: The Pap smear is a screening test designed to aid in the detection of premalignant and malignant conditions of the uterine cervix. It is not a diagnostic procedure and should not be used as the sole means of detecting cervical cancer. Both false-positive and false-negative reports do occur. . Performed at: WBPerformed By: #### [id number] #### [facility] [address] [place] [address] Dr. Sharla LucasPerformed by:CommentNoDetwiler Memorial Hospital on above: Result Comment: Nieves Paniagua, Motion Picture Scene Builder Performed at: BAPerformed By: #### [id number] #### [facility] [address] [place] [address] Dr. Sharla Sorianoimechloé adequacy:CommentMercy Health Urbana Hospital on above:Result Comment: Satisfactory for evaluation. No endocervical component is identified. Performed at: BAPerformed By: #### [id number] #### [facility] [address] [place] [address] Dr. Sharla LucasOCC BLD IMMUNOASSAYon 37-82-7153MQHTDB BLOODNegativeNormal NEGATIVEThe [facility] on above:Performed By: #### OBIA #### [facility] [address] [place] [address] Dr. Sharla LucasCOMARIBEL Quick Testingon 43-46-5509MezhkuKoktceiwKjzco Coast SousaCamp Other COVID Quick Testingon 32-45-8206ZNCKM Quick Testing [employer] Other Cardiovascular Lab Reporton 66-51-6683Fbkuqbcqghudox Lab ReportUnBethesda North Hospital Patient Name: [facility] MR #: [id number] Physician: Jovanni Jon MD Department of Service Date: 01/12/2021 Medicine Birthdate: 1985 Division of Room #: CC Cardiology Adult Cardiovascular Services [facility] [address] [address] Cardiovascular Laboratory Report LOOP IMPLANT PROCEDURE NOTE DATE OF PROCEDURE: 01/12/2021 PERFORMING PHYSICIAN: Dr. Jovanni Jon INDICATIONS FOR PROCEDURE: 1. Palpitations CONSENT: Patient [...] the sternum on the left using the [employer] tool. The loop recorder was then injected [...] LOOP details: Device Model: [id number] Lux-Dx Serial#: [id number] Sensing is 0.2 mV. IMPRESSION: Successful placement of LOOP implant with excellent sensing parameters. RECOMMENDATIONS: 1. Occlusive dressing to be changed after 14 days. 2. Do not wet the incision. Jovanni Jon MD Cardiac Electrophysiology Electronically Signed by: Jovanni Jon MD 01/22/2021 05:25 P Jovanni Jon MD Date Dict: 01/12/2021/09:45 A/Jovanni Jon MD Date Trans: 01/12/2021 09:56 A/casa DN_JN:[id number] cc: Avis Prince, DO [address] [facility] [address] [facility] [address] [place] [address] Vital Signs Date TimeVital SignValuePerforming MuqclpskoUcbgbwhx68-83-7076 09:53-0400Body eyoqwv724.75 cmMatthew Suresh DO Work Phone: [phone] [place], [place] 7601808-04-2025 09:53-0400 Body mass index (BMI) [Ratio]37.7 kg/v4Rdfhgxs Suresh DO Work Phone: [phone] [place], [place] 7601808-04-2025 09:53-0400 Body lgcscfmxfpa03.2 [degF]Avis Prince DO Work Phone: [phone] [place], [place] 7601808-04-2025 09:53-0400 Body .99 kgMatthew Suresh DO Work Phone: [phone] [place], [place] 7601808-04-2025 09:53-0400 Diastolic blood nqsqvusi03 mm[Hg]Avis Prince DO Work Phone: [phone] [place], [place] 7601808-04-2025 09:53-0400 Heart rate90 /minMatthew Suresh DO Work Phone: [phone] [place], [place] 7601808-04-2025 09:53-0400 Respiratory rate18 /minMatthew Suresh DO Work Phone: [phone] [place] [address] Ixasor14-17-2735 09:53-0400 SaO2% (BldA) [Mass fraction]97 %Avis Prince DO Work Phone: [facility]08-04-2025 09:53-0400 Systolic blood jlpyapjr987 mm[Hg]Avis Prince DO Work Phone: [facility]06-02-2025 10:16-0400 Body xdqyzq025.75 cmOhiohealth Nelsonville Health Center06-02-2025 10:16-0400Body mass index (BMI) [Ratio]36.2 kg/l0DgcckaxiwOhiohealth Nelsonville Health Center06-02-2025 10:16-0400Body nosypvwukyy12.8 [degF][facility]06-02-2025 10:16-0400Body temtfz19.37 kgOhiohealth Nelsonville Health Center06-02-2025 10:16-0400Diastolic blood ozmtecom43 mm[Hg][facility] 11-17-2024 10:16-0400Heart jkmu684 /[facility] 11-17-2024 10:16-0400Respiratory rate18 /[facility] 11-17-2024 10:16-7669FmT5% (BldA) [Mass fraction]99 %[facility]06-02-2025 10:16-0400Systolic blood iyajjedc995 mm[Hg][facility]03-04-2025 09:14-0500Body mass index (BMI) [Ratio]36.63 kg/m2Liyah SCHAEFFER Work Phone: [facility] HospitalUregaxblrn34-56-3242 09:14-0500Body .8 kg Liyah SCHAEFFER Work Phone: [facility] HospitalMqvorurqgz25-52-6298 09:14-0500Diastolic blood mm[Hg]Liyah SCHAEFFER Work Phone: noNortheast Regional Medical CenterHmkltknktv82-69-1248 09:14-0500Systolic blood bvlyywjo629 mm[Hg]Liyah SCHAEFFER Work Phone: [phone] [place], [place] [address]Mklhtzpcwq35-12-5578 08:33-0500Body hkyduo286.75 cmMattbernabe Suresh DO Work Phone: [phone] [place], [place] 7601801-23-2025 08:33-0500 Body mass index (BMI) [Ratio]37.2 kg/b5CnawkcvAvis Nammer DO Work Phone: [phone] [place], [place] 7601801-23-2025 08:33-0500 Body efivmn43.89 kgMattbernabe Suresh DO Work Phone: [phone] [place], [place] 7601801-23-2025 08:33-0500 Diastolic blood dauewvcg95 mm[Hg]Avis Prince DO Work Phone: [phone] [place], [place] 7601801-23-2025 08:33-0500 Heart rate68 /minWidmitryw Suresh DO Work Phone: [phone] [place], [place] 7601801-23-2025 08:33-0500 SaO2% (BldA) [Mass fraction]99 %Avis Prince DO Work Phone: [phone] [place], [place] 7601801-23-2025 08:33-0500 Systolic blood taubzpex036 mm[Hg]Avis Prince DO Work Phone: [phone] [place], [place] 7601810-02-2024 09:57-0400 Body hsjvpy827.75 cmOhio[facility]ville [facility] Center10-02-2024 09:57-0400Body mass index (BMI) [Ratio]36.8 kg/d4UwqduzbsfOhiohealth Nelsonville Health Center10-02-2024 09:57-0400Body gcasge72.98 kgOhiohealth Nelsonville Health Center10-02-2024 09:57-0400Diastolic blood ykuqbosh89 mm[Hg][facility] 03-19-2024 09:57-0400Heart rate84 /[facility] 03-19-2024 09:57-0400Respiratory rate18 /[facility] 03-19-2024 09:57-7841UeO7% (BldA) [Mass fraction]98 %[facility]10-02-2024 09:57-0400Systolic blood sdzuqezg243 mm[Hg][facility]07-22-2024 13:36-0400Body xjutdd649.75 cmOhiohealth Nelsonville Health Center07-22-2024 13:36-0400Body mass index (BMI) [Ratio]36 kg/m2 [facility]07-22-2024 13:36-0400Body fepwxh90.71 kg [facility]07-22-2024 13:36-0400Diastolic blood mm[Hg][facility]07-22-2024 13:36-0400Heart rate86 /min [facility]07-22-2024 13:36-4639PjA4% (BldA) [Mass fraction]98 %[facility]07-22-2024 13:36-0400Systolic blood mm[Hg][facility]05-20-2024 08:36-0400 Body vpsjhi098.75 cmOhiohealth Nelsonville Health Center05-20-2024 08:36-0400Body mass index (BMI) [Ratio]35.8 kg/z0TnkvbcprcOhiohealth Nelsonville Health Center05-20-2024 08:36-0400Body vepgno58.26 kgOhiohealth Nelsonville Health Center05-20-2024 08:36-0400Diastolic blood nzglleii40 mm[Hg][facility] 11-05-2023 08:36-0400Heart rate84 /minOhiohealth Nelsonville Health Center 11-05-2023 08:36-7118YyW7% (BldA) [Mass fraction]98 %[facility]05-20-2024 08:36-0400Systolic blood fyctsqlq733 mm[Hg][facility]01-12-2024 11:15-0500Body ibgewd581.75 cmAvis Prince Other [place] [employer] Other 01-12-2024 11:15-0500Body mass index (BMI) [Ratio] 36.89 kg/e9BixrpdqAvis Prince Other [employer] Other 01-12-2024 11:15-0500Body .99 kgJustinace Prince Other [employer] Other 01-12-2024 11:15-0500Diastolic blood iydlxgzs97 mm[Hg] Avis Prince Other [employer] Other 01-12-2024 11:15-0500Respiratory rate16 /minJustinace Prince Other [employer] Other 01-12-2024 11:15-0927BeV3% (BldA) [Mass fraction]98 % Avis Prince Other [employer] Other 01-12-2024 11:15-0500Systolic blood sutdlbvi997 mm[Hg] Avis Prince Other [employer] Other 02-01-2023 16:00-0500Body ygmtfz333.75 cmRcandiod Jerezjason Other [employer] Other 02-01-2023 16:00-0500Body mass index (BMI) [Ratio] 37.27 kg/e7JlgvesaJimi Chou Other [employer] Other 02-01-2023 16:00-0500Body angxdzoyvom38.4 [degF] Jimi Chou Other [employer] Other 02-01-2023 16:00-0500Body oisdzq79.94 kgJimi Chou Other [employer] Other 02-01-2023 16:00-0500Diastolic blood lwdxfajr04 mm[Hg] Jimi Chou Other [employer] Other 02-01-2023 16:00-0500Respiratory rate16 /minRichard Binks Other [employer] Other 02-01-2023 16:00-9204AtB7% (BldA) [Mass fraction]99 % Jimi Chou Other [employer] Other 02-01-2023 16:00-0500Systolic blood uhzzqzug775 mm[Hg] Jimi Chou Other [employer] Other 01-09-2023 17:00-0500Body hlxvez495.75 cmRichseymour Chou Other [employer] Other 01-09-2023 17:00-0500Body mass index (BMI) [Ratio] 38.51 kg/o9Jxxdzln Binks Other [employer] Other 01-09-2023 17:00-0500Body kyogqf84.07 kgJimi Chou Other [employer] Other 01-09-2023 17:00-0500Diastolic blood ashaxmqk35 mm[Hg] Jimi Chou Other [employer] Other 01-09-2023 17:00-0500Respiratory rate16 /minRichseymour Binks Other [employer] Other 01-09-2023 17:00-5041SfE9% (BldA) [Mass fraction]99 % Jimi Chou Other [employer] Other [id number] 17:00-0500Systolic blood mm[Hg] Jimi Chou Other [employer] Other 12-09-2022 11:00-0500Body llxuis730.75 cmRichseymour Chou Other [employer] Other 12-09-2022 11:00-0500Body mass index (BMI) [Ratio]38.5 kg/w0Usggoer Binks Other [employer] Other 12-09-2022 11:00-0500Body byqrep82.03 kgRichseymour Chou Other [employer] Other 12-09-2022 11:00-0500Diastolic blood anvmgtxl26 mm[Hg] Jimi Chou Other [employer] Other 12-09-2022 11:00-0500Respiratory rate16 /minRichseymour Chou Other [employer] Other 12-09-2022 11:00-0902OlL5% (BldA) [Mass fraction]97 % Jimi Chou Other [employer] Other 12-09-2022 11:00-0500Systolic blood luvbnycy867 mm[Hg] Jimi Chou Other [employer] Other 11-03-2022 17:15-0400Body yywmhq440.75 cmMatthew Suresh Other [employer] Other 11-03-2022 17:15-0400Body mass index (BMI) [Ratio] 38.48 kg/e1ZraixwfAvis Prince Other [employer] Other 11-03-2022 17:15-0400Body bqyula24.98 kgMattbernabe Prince Other [employer] Other 11-03-2022 17:15-0400Diastolic blood gvmisxtb08 mm[Hg] Avis Prince Other [employer] Other 11-03-2022 17:15-0400Respiratory rate16 /minMaace Prince Other [employer] Other 11-03-2022 17:15-3748FtU6% (BldA) [Mass fraction]98 % Avis Prince Other [employer] Other 11-03-2022 17:15-0400Systolic blood gwnzujuz351 mm[Hg] Avis Prince Other [employer] Other 08-04-2022 12:00-0400Body pumxak662.75 cmMattbernabe Prince Other [employer] Other 08-04-2022 12:00-0400Body mass index (BMI) [Ratio] 39.36 kg/e6MahlmglAvis Prince Other [employer] Other 08-04-2022 12:00-0400Body eckhdd54.2 kgMattbernabe Prince Other [employer] Other 08-04-2022 12:00-0400Diastolic blood oplydqzi07 mm[Hg] Avis Prince Other [employer] Other 08-04-2022 12:00-0400Respiratory rate16 /minAvis Prince Other [employer] Other 08-04-2022 12:00-7427PxC9% (BldA) [Mass fraction]99 % Avis Prince Other [employer] Other 08-04-2022 12:00-0400Systolic blood wdohfkxu683 mm[Hg] Avis Prince Other [employer] Other 06-02-2022 17:15-0400Body tkdjez448.75 cmAvis Prince Other [employer] Other 06-02-2022 17:15-0400Body mass index (BMI) [Ratio] 39.34 kg/m4MgwvdueAvis Prince Other [employer] Other 06-02-2022 17:15-0400Body pebajr71.16 kgAvis Prince Other [employer] Other 06-02-2022 17:15-0400Diastolic blood exzhpwcz12 mm[Hg] Avis Prince Other [employer] Other 06-02-2022 17:15-0400Respiratory rate16 /minAvis Prince Other [employer] Other 06-02-2022 17:15-2022NiW5% (BldA) [Mass fraction]98 % Avis Prince Other [employer] Other 06-02-2022 17:15-0400Systolic blood ykovhvmq599 mm[Hg] Avis Prince Other [employer] Other 05-04-2022 14:00-0400Body ssaykz424.75 cmAvis Prince Other [employer] Other 05-04-2022 14:00-0400Body mass index (BMI) [Ratio] 40.47 kg/u1GbudcuzAvis Prince Other [employer] Other 05-04-2022 14:00-0400Body nooyle408.01 kgAvis Prince Other [employer] Other 05-04-2022 14:00-0400Diastolic blood ezecdjab597 mm[Hg]Avis Prince Other [employer] Other 05-04-2022 14:00-0400Respiratory rate16 /minMaace Prince Other [employer] Other 05-04-2022 14:00-6165TtZ4% (BldA) [Mass fraction]99 % Avis Prince Other [employer] Other 05-04-2022 14:00-0400Systolic blood honyrrur401 mm[Hg] Avis Prince Other [employer] Other 02-09-2022 12:30-0500Body slzopi881.75 cmMaace Prince Other [employer] Other 02-09-2022 12:30-0500Body mass index (BMI) [Ratio]22.5 kg/b3JutzwekAvis Prince Other [employer] Other 02-09-2022 12:30-0500Body anbpmf34.7 kguJstinace Prince Other [employer] Other 02-09-2022 12:30-0500Diastolic blood zwmjqpaw79 mm[Hg] Avis Prince Other [employer] Other 02-09-2022 12:30-0500Respiratory rate16 /minMaace Prince Other [employer] Other 02-09-2022 12:30-8517MxE9% (BldA) [Mass fraction]99 % Avis Prince Other [employer] Other 02-09-2022 12:30-0500Systolic blood wlqkufhf019 mm[Hg] Avis Prince Other [employer] Other 11-18-2021 11:00-0500Body .75 cmAvis Prince Other [employer] Other 11-18-2021 11:00-0500Body dimwdaoejmi87 [degF]Avis Prince Other [employer] Other 11-18-2021 11:00-0500Diastolic blood jboafasu66 mm[Hg] Avis Prince Other [employer] Other 11-18-2021 11:00-0500Respiratory rate16 /minMattmargiew Suresh Other [employer] Other 11-18-2021 11:00-2113QtP9% (BldA) [Mass fraction]98 % Avis Prince Other [employer] Other 11-18-2021 11:00-0500Systolic blood spauanwq484 mm[Hg] Avis Prince Other [employer] Other 10-25-2021 17:15-0400Body lnyfwz680.75 cmMattbernabe Prince Other [employer] Other 10-25-2021 17:15-0400Body mass index (BMI) [Ratio] 41.39 kg/o5LzuvkoqAvis Prince Other [employer] Other 10-25-2021 17:15-0400Body abvsiopfmhw12.4 [degF] Avis Prince Other [employer] Other 10-25-2021 17:15-0400Body riaoww922.33 kgMattbernabe Prince Other [employer] Other 10-25-2021 17:15-0400Diastolic blood jqxctriv55 mm[Hg] Avis Prince Other [employer] Other 10-25-2021 17:15-0400Respiratory rate16 /minMatthew Suresh Other [employer] Other 10-25-2021 17:15-6465JxJ0% (BldA) [Mass fraction]99 % Avisfranky Prince Other [employer] Other 10-25-2021 17:15-0400Systolic blood uxrwtpit469 mm[Hg] Avis Prince Other [employer] Other 10-14-2021 16:15-0400Body elmzka901.75 cmAvis Prince Other [employer] Other 10-14-2021 16:15-0400Body ilwdydczios86.7 [degF] Avis Prince Other [employer] Other 10-14-2021 16:15-0400Respiratory rate18 /minJustinttbernabe Prince Other [employer] Other 10-14-2021 16:15-6250KfS4% (BldA) [Mass fraction]98 % Avis Prince Other [employer] Other Encounters Encounter DateEncounter TypeCare ProviderFacilityStart: 01-19-2025 End: 82-25-3337ntknslfjeyPrrascf N Widmer DO Work Phone: [facility] Work Phone: Start: 01-19-2025 End: 56-04-9725Latuiyv encounter procedureJimi Chou [employer]-[facility] Work Phone: Start: 12-16-2024 End: 23-89-9832mfolcszcycFDOWWWU [facility] Centertart: 11-17-2024 End: 40-47-0301zxhfwqgbaxHcyqfsliu [facility] Work Phone: Start: 11-17-2024 End: 05-14-6230Hxjonpm encounter procedureC[facility] [place] Work Phone: Start: 08-19-2024 End: 18-39-8177Qmnrmr flowsheetLiyah SCHAEFFER Work Phone: noms BCP OBStart: 08-19-2024 End: 52-03-8032Banlxy flowsheetLiyah SCHAEFFER Work Phone: noms BCP OBStart: 81-40-2467Bnp-patient / Non-visit [facility]St[facility] Work Phone: Start: 08-19-2024 End: 18-24-2519Wqduymk encounter procedureLiyah SCHAEFFER Work Phone: noms HealthcareStart: 08-19-2024 End: 30-56-0906Mzarkqqw preventive med est patient 40-64yrsAmy Josie SCHAEFFER Work Phone: noms [facility] OBComment on above:Well woman exam with routine gynecological exam; Encounter for screening mammogram for malignant neoplasm of breast; Vaginal drynessStart: 08-19-2024 End: 64-19-0199ijjrhbtxhiVVK RAMEYNot AvailableStart: 07-10-2024 End: 66-43-4882kufwfeeulkKaslxst N Widmer DO Work Phone: [facility] Work Phone: Start: 07-10-2024 End: 12-33-7843Qrqiwaxhr for general adult medical examination without abnormal findingsAvis Prince DO Work Phone: [facility]art: 07-10-2024 End: 60-28-7547Blbeyyj encounter procedureMattbernabe Prince DO Work Phone: [facility] [place] Work Phone: Start: 05-27-2024 End: 84-25-4249ytcbbvtkzmGUHBRiverview Health Institutetart: 05-24-2024 End: 52-08-7462Xzjhxrro ReferredMattbernabe Prince DO Work Phone: [facility] Work Phone: Start: 05-24-2024 End: 74-78-6821aixsgcbtjyXekdimwe CommunityFacility:[facility] Centertart: 03-19-2024 End: 89-96-4112jplcfknrwcDwaujhncfUniversity Hospitals Geaug[facility] Center Work Phone: Start: 03-19-2024 End: 82-26-6588Iwjbiqs encounter procedureC[facility] Physician [facility] [place] Work Phone: Start: 01-07-2024 End: 90-80-9682kodjmkojqeBmaudrnnqUniversity Hospitals Geauga [facility] Center Work Phone: Start: 01-07-2024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
[2025-04-24 16:04] VITALS: BP 124/82
--- NOTE | 2025-04-25 10:07 | ED.GENADUL1 ---
HPI HPI - General Adult General Chief complaint: Recheck/Abnormal Lab/Rx Stated complaint: BLOOD PRESSURE HIGH Time Seen by Provider: 04/24/25 15:14 Source: patient Mode of arrival: walk-in History of Present Illness HPI narrative: Patient is a 40-year-old female, history only significant for anxiety, presenting to the emergency department for concerns of elevated blood pressure. Patient states that she was prescribed metoprolol as needed for hypertension/elevated heart rate. She states she takes her blood pressure daily, typically runs 130/80. However, today, she took her blood pressure at home and noticed that to be around 170s systolic. Other than elevated blood pressure, the patient has been in her normal state of health other than a mild headache for the last 24 hours. She denies any nausea, vomiting, photophobia, neck pain, fevers, chills, chest pain, shortness of breath, abdominal pain, nausea, or vomiting. She has history of hysterectomy and denies being . Related Data Home Medications ?Medication ?Instructions ?Recorded ?Confirmed Emgality Syringe .monthly 05/04/23 Prilosec 1 tab PO DAILY 05/04/23 05/17/23 aspirin 81 mg capsule 81 mg PO DAILY 05/04/23 04/24/25 duloxetine 20 mg capsule,delayed 20 mg PO DAILY 05/04/23 04/24/25 release (Cymbalta) topiramate 100 mg tablet (Topamax) 100 mg PO BID 05/04/23 04/24/25 Previous Rx's ?Medication ?Instructions ?Recorded ondansetron 4 mg disintegrating 4 mg PO Q8H PRN nausea and 04/24/25 tablet vomiting 5 days #10 tabs Allergies Allergy/AdvReac Type Severity Reaction Status Date / Time diltiazem (From Cardizem) Allergy Verified 05/17/23 15:02 Review of Systems ROS Status of ROS 10 or more systems reviewed and unremarkable except as noted in history and below [facility] Medical History (Updated 04/24/25 @ 15:37 by Nader Art DO) Arrhythmia ?I49.9 - Cardiac arrhythmia, unspecified (ICD-10) HTN (hypertension) ?I10 - Essential (primary) hypertension (ICD-10) Anxiety ?F41.9 - Anxiety disorder, unspecified (ICD-10) Migraines ?G43.909 - Migraine, unspecified, not intractable, without status migrainosus (ICD-10) Factor 5 Leiden mutation, heterozygous ?D68.51 - Activated protein C resistance (ICD-10) Surgical History (Updated 05/17/23 @ 15:04 by Miguelina Daniel) History of ultrasound guided needle biopsy ?Z98.890 - Other specified postprocedural states (ICD-10) H/O arthroscopy of right knee ?Z98.890 - Other specified postprocedural states (ICD-10) Hx of shoulder surgery ?Z98.890 - Other specified postprocedural states (ICD-10) History of hysterectomy ?Z90.710 - Acquired absence of both cervix and uterus (ICD-10) History of radiofrequency ablation procedure for cardiac arrhythmia ?Z98.890 - Other specified postprocedural states (ICD-10) History of needle biopsy ?Z98.890 - Other specified postprocedural states (ICD-10) Hx laparoscopic cholecystectomy ?Z90.49 - Acquired absence of other specified parts of digestive tract (ICD-10) History of esophagogastroduodenoscopy ?Z98.890 - Other specified postprocedural states (ICD-10) Social History Little interest or pleasure in doing things: not at all Feeling down, depressed, or hopeless: not at all Exam Narrative Exam Narrative: CONSTITUTIONAL: Well-appearing, answering questions and following commands appropriately SKIN: Was warm and dry. EYES: Sclerae white. EARS, NOSE, THROAT: Moist oral mucosa. RESPIRATORY: Clear to auscultation bilaterally, no wheezes, crackles, or stridor, no use of accessory muscles CARDIOVASCULAR: Normal rate and regular rhythm. There is no S3, S4, murmur, rub. GASTROINTESTINAL: Abdomen is nondistended. MUSCULOSKELETAL: No peripheral edema. NEUROLOGIC: Patient is awake and alert. Facies were symmetrical. Constitutional Vital Signs, click to edit/add: Last Vital Signs Temp 98.4 F 04/24/25 15:17 Pulse 76 04/24/25 15:40 Resp 23 H 04/24/25 15:40 BP 124/82 04/24/25 16:04 Pulse Ox 96 04/24/25 15:40 O2 Del Method Room Air 04/24/25 15:29 Course Vital Signs Vital signs: Vital Signs Temperature 98.4 F 04/24/25 15:17 Pulse Rate 88 04/24/25 15:17 Respiratory Rate 18 04/24/25 15:17 Blood Pressure 138/78 04/24/25 15:17 Pulse Oximetry 97 04/24/25 15:17 Oxygen Delivery Method Room Air 04/24/25 15:17 Temperature 98.4 F 04/24/25 15:17 Pulse Rate 76 04/24/25 15:40 Respiratory Rate 23 H 04/24/25 15:40 Blood Pressure 124/82 04/24/25 16:04 Pulse Oximetry 96 04/24/25 15:40 Oxygen Delivery Method Room Air 04/24/25 15:29 Medical Decision Making MDM Narrative Medical decision making narrative: Patient is a healthy 40-year-old female presenting to the emergency department for concerns of an elevated blood pressure. Other than a mild headache, she is asymptomatic. Her vital signs on arrival were within normal limits, she is afebrile and hemodynamic stable. Her blood pressure is 138/78, and after 30-minute in the ED is now 124/82. I do believe patient's presentation is secondary to asymptomatic hypertension. She has no signs or symptoms of endorgan damage. Her blood pressure is now normal. Her presentation is consistent with asymptomatic hypertension. She was instructed follow-up with her PCP for further care. Return precautions given including any new or concerning symptoms. Patient understands and agrees to the plan. FINAL IMPRESSION: #Acute asymptomatic hypertension, resolved #Normal exam DISPOSITION: Discharged home CONDITION: Good Discharge Plan Discharge Chief Complaint: Recheck/Abnormal Lab/Rx Clinical Impression: Asymptomatic hypertension Patient Disposition: Home, Self-Care Time of Disposition Decision: 15:37 Condition: Good Mode of Transportation: Private Vehicle Prescriptions / Home Meds: New ondansetron 4 mg tablet,disintegrating 4 mg PO Q8H PRN (Reason: nausea and vomiting) 5 Days Qty: 10 0RF No Action duloxetine [Cymbalta] 20 mg capsule,delayed release(DR/EC) 20 mg PO DAILY topiramate [Topamax] 100 mg tablet 100 mg PO BID Emgality Syringe .monthly aspirin 81 mg capsule 81 mg PO DAILY Prilosec 1 tab PO DAILY Print Language: French Instructions: Hypertension (ED) Additional Instructions: Follow up with your family Referrals: AVIS PRINCE [Primary Care Provider] - 1 week Discharge Date/Time: 04/24/25 16:06
== END 2025-04-24 16:06 | disposition home or self-care (01) ==
PROVIDERS: Emergency Provider Student in an Organized Health Care Education/Training Program
DX: I10 Essential (primary) hypertension (principal); F41.9 Anxiety disorder, unspecified; Z90.710 Acquired absence of both cervix and uterus
CPT/HCPCS: 93005; 99283